=== PATIENT | female | born 1955 | race Caucasian/White ===

== ENCOUNTER → 2016-05-03 | Outpatient (CLI) | payer BC, MEDICAID | LOC: WI 11:20 | PROVIDERS: ATTEND Family Medicine | DX: Z12.31 Encounter for screening mammogram for malignant neoplasm of breast (principal) | CPT/HCPCS: 77067; G0202 ==

== ENCOUNTER 2016-09-10 08:11 | Emergency (ER) | payer BC, MEDICAID ==
--- NOTE | 2016-09-10 08:46 | RADIOLOGY REPORT (SQ) ---
EXAM DESCRIPTION: CHEST SINGLE VIEW COMPLETED DATE/TIME: 09/10/2016 8:27 am REASON FOR STUDY: sob COMPARISON: 01/05/2016 EXAM PARAMETERS: NUMBER OF VIEWS: One view. TECHNIQUE: Single frontal radiographic view of the chest acquired. RADIATION DOSE: NA LIMITATIONS: None. FINDINGS: LUNGS AND PLEURA: No opacities, masses or pneumothorax. No pleural effusion. MEDIASTINUM AND HILAR STRUCTURES: No masses. Contour normal. HEART AND VASCULAR STRUCTURES: Heart normal in size. Normal vasculature. BONES: No acute findings. HARDWARE: None in the chest. OTHER: No other significant finding. IMPRESSION: NO ACUTE RADIOGRAPHIC FINDING IN THE CHEST. TECHNICAL DOCUMENTATION: JOB ID: [id number]
[2016-09-10 08:55] LABS: ABSOLUTE EOSINOPHILS # (AUTO) 0.1 10^3/uL (0.0-0.6); ABSOLUTE LYMPHOCYTES (AUTO) 1.4 10^3/uL (0.5-4.7); ABSOLUTE MONOCYTES (AUTO) 0.6 10^3/uL (0.1-1.4); ABSOLUTE NEUT (AUTO) 2.3 10^3/uL (1.7-8.2); BASOPHILS % (AUTO) 0.3 % (0-2); EOSINOPHILS % (AUTO) 3.4 % (0-6); HEMATOCRIT 44.5 % (36.0-47.0); HEMOGLOBIN 14.9 g/dL (12.0-15.5); HGB HCT DIFFERENCE 0.2; LYMPHOCYTES % (AUTO) 31.4 % (13-45); MEAN CORPUSCULAR HEMOGLOBIN 29.4 pg (27.0-33.4); MEAN CORPUSCULAR HGB CONC 33.4 g/dL (32.0-36.0); MEAN CORPUSCULAR VOLUME 88 fl (80-97); MONOCYTES % (AUTO) 12.8 % (3-13); RED BLOOD COUNT 5.06 10^6/uL (3.72-5.28); RED CELL DISTRIBUTION WIDTH 13.9 % (11.5-14.0); SEGMENTED NEUTROPHILS % (AUTO) 52.1 % (42-78); WHITE BLOOD COUNT 4.4 10^3/uL (4.0-10.5)
[2016-09-10 09:18] LABS: ALANINE AMINOTRANSFERASE 24 U/L (9-52); ALBUMIN 4.1 g/dL (3.5-5.0); ALKALINE PHOSPHATASE 71 U/L (38-126); ANION GAP 13 (5-19); ASPARTATE AMINO TRANSFERASE 29 U/L (14-36); BILIRUBIN,DIRECT 0.3 mg/dL (0.0-0.4); BILIRUBIN,TOTAL 0.5 mg/dL (0.2-1.3); BLOOD UREA NITROGEN 11 mg/dL (7-20); CALCIUM 8.9 mg/dL (8.4-10.2); CARBON DIOXIDE 22 mmol/L (22-30); CHLORIDE 107 mmol/L (98-107); CREATINE KINASE 341 U/L (30-135); GLUCOSE 114 mg/dL (75-110); POTASSIUM 4.1 mmol/L (3.6-5.0); SODIUM 141.6 mmol/L (137-145); TOTAL PROTEIN 7.9 g/dL (6.3-8.2)
[2016-09-10 09:30] LABS: CREATINE KINASE MB 1.41 ng/mL (<4.55)
[2016-09-10 09:33] LABS: TROPONIN I < 0.012 ng/mL
[2016-09-10 09:36] LABS: APPEARANCE,URINE CLEAR; BILIRUBIN,URINE NEGATIVE (NEGATIVE); GLUCOSE, URINE NEGATIVE (NEGATIVE); KETONES,URINE NEGATIVE (NEGATIVE); LEUKOCYTE ESTERASE,URINE NEGATIVE (NEGATIVE); NITRITE,URINE NEGATIVE (NEGATIVE); PROTEIN,URINE NEGATIVE (NEGATIVE); URINE SPECIFIC GRAVITY 1.006; UROBILINOGEN,URINE NEGATIVE mg/dL (<2.0)
[2016-09-10] MEDS ORDERED: PREDNISONE 20 MG TABLET PO ONE (09:37)
[2016-09-10] MEDS ORDERED: IPRATROPIUM/ALBUTEROL 0.5-2.5 MG/3 ML AMPUL NEB ONE ×2 (09:37)
--- NOTE | 2016-09-10 10:20 | EKG REPORT ---
SEVERITY:- NORMAL ECG - SINUS RHYTHM : Confirmed by: Ewa Tiwari MD 10-Sep-2016 10:19:13
--- NOTE | 2016-09-10 10:38 | ER Document Report ---
ED General - General Chief Complaint: Shortness Of Breath Stated Complaint: SHORTNESS OF BREATH Time Seen by Provider: 09/10/16 08:15 Mode of Arrival: Ambulatory Information source: Patient Notes: 61-year-old female history of COPD presents with complaints of a junky cough that she is unable to get up, over one week duration. Patient denies any fevers or chills nausea vomiting or diarrhea pt has used albuterol at home with minimal relief TRAVEL OUTSIDE OF THE [place] IN LAST 30 DAYS: No - HPI Onset: Last week Onset/Duration: Persistent Quality of pain: Achy Severity: Mild Pain Level: 1 Associated symptoms: Nonproductive cough, Shortness of breath Exacerbated by: Walking Relieved by: Denies Similar symptoms previously: Yes Recently seen / treated by doctor: Yes - Related Data Allergies/Adverse Reactions: aspirin [Aspirin] Allergy (Verified 11/16/14 09:35) codeine [Codeine] Allergy (Verified 11/16/14 09:35) Past Medical History - Social History Smoking Status: Current Every Day Smoker Cigarette use (# per day): Yes Chew tobacco use (# tins/day): No Smoking Education Provided: Yes - Patient counselled regarding cessation for 4 minutes Frequency of alcohol use: None Drug Abuse: None Family History: Hypertension - Past Medical History Cardiac Medical History: Reports: Hx Hypercholesterolemia, Hx Hypertension Pulmonary Medical History: Reports: Hx Asthma, Hx Bronchitis, Hx COPD Psychiatric Medical History: Reports: Hx Bipolar Disorder, Hx Depression, Hx Schizophrenia Past Surgical History: Reports: Hx Gynecologic Surgery - uterine scraping, Hx Tubal Ligation - Immunizations Immunizations up to date: Yes Hx Diphtheria, Pertussis, Tetanus Vaccination: Yes - UTD Review of Systems - Review of Systems Notes: REVIEW OF SYSTEMS: CONSTITUTIONAL : Denies fever, chills, or sweats. Denies recent illness. EENT: Denies eye, ear, throat, or mouth pain or symptoms. Denies nasal or sinus congestion or discharge. Denies throat, tongue, or mouth swelling or difficulty swallowing. CARDIOVASCULAR: Denies chest pain. Denies palpitations or racing or irregular heart beat. Denies ankle edema. RESPIRATORY: Denies cough, cold, or chest congestion. Denies shortness of breath, difficulty breathing, or wheezing. GASTROINTESTINAL: Denies abdominal pain or distention. Denies nausea, vomiting , or diarrhea. Denies blood in vomitus, stools, or per rectum. Denies black, tarry stools. Denies constipation. GENITOURINARY: Denies difficulty urinating, painful urination, burning, frequency, blood in urine, or discharge. FEMALE GENITOURINARY: Denies vaginal bleeding, heavy or abnormal periods, irregular periods. Denies vaginal discharge or odor. MUSCULOSKELETAL: Denies back or neck pain or stiffness. Denies joint pain or swelling. SKIN: Denies rash, lesions or sores. HEMATOLOGIC : Denies easy bruising or bleeding. LYMPHATIC: Denies swollen, enlarged glands. NEUROLOGICAL: Denies confusion or altered mental status. Denies passing out or loss of consciousness. Denies dizziness or lightheadedness. Denies headache. Denies weakness or paralysis or loss of use of either side. Denies problems with gait or speech. Denies sensory loss, numbness, or tingling. Denies seizures. PSYCHIATRIC: Denies anxiety or stress. Denies depression, suicidal ideation, or homicidal ideation. ALL OTHER SYSTEMS REVIEWED AND NEGATIVE. PHYSICAL EXAMINATION: GENERAL: Well-appearing, well-nourished and in no acute distress. HEAD: Atraumatic, normocephalic. EYES: Pupils equal round and reactive to light, extraocular movements intact, conjunctiva are normal. ENT: Nares patent, oropharynx clear without exudates. Moist mucous membranes. NECK: Normal range of motion, supple without lymphadenopathy LUNGS: Coarse rhonchi at the bases HEART: Regular rate and rhythm without murmurs ABDOMEN: Soft, nontender, nondistended abdomen. No guarding, no rebound. No masses appreciated. Female : deferred Musculoskeletal: Normal range of motion, no pitting or edema. No cyanosis. NEUROLOGICAL: Cranial nerves grossly intact. Normal speech, normal gait. Normal sensory, motor exams PSYCH: Normal mood, normal affect. SKIN: Warm, Dry, normal turgor, no rashes or lesions noted. Dictation was performed using [id number] voice recognition software Physical Exam - Vital signs Vitals: Pulse Ox 97 09/10/16 08:19 Course - Re-evaluation Re-evalutation: 09/10/16 10:37 Patient given multiple DuoNeb's will be reevaluated 09/10/16 11:49 X-ray noted no obvious abnormality however given patient's presentation I do believe she has pneumonia. She was ambulated and satting 97% rr 20 hr 77, i will dc home as copd exacerbation After performing a Medical Screening Examination, I estimate there is LOW risk for ACUTE CORONARY SYNDROME, RESPIRATORY FAILURE, SEPSIS OR MENINGITIS, thus I consider the discharge disposition reasonable. I have reevaluated this patient multiple times and no significant life threatening changes are noted. The patient and I have discussed the diagnosis and risks, and we agree with discharging home with close follow-up. We also discussed returning to the Emergency Department immediately if new or worsening symptoms occur. We have discussed the symptoms which are most concerning (e.g., changing or worsening pain, trouble swallowing or breathing, neck stiffness, fever) that necessitate immediate return. - Vital Signs Vital signs: Temp Pulse Resp BP Pulse Ox 23 H 108/63 96 09/10/16 11:01 09/10/16 11:01 09/10/16 11:01 - Laboratory Result Diagrams: 09/10/16 08:40 09/10/16 08:40 Laboratory results interpreted by me: 09/10/16 09/10/16 08:40 09:20 Glucose 114 H Creatine Kinase 341 H Urine Blood SMALL H - Diagnostic Test Radiology reviewed: Image reviewed, Reports reviewed - EKG Interpretation by Or EKG shows normal: Sinus rhythm, [place], Intervals, QRS Complexes Discharge - Discharge Clinical Impression: Acute exacerbation of chronic obstructive pulmonary disease (COPD) COPD (chronic obstructive pulmonary disease) Qualifiers: COPD type: chronic bronchitis Chronic bronchitis type: simple Qualified Code(s) : J41.0 - Simple chronic bronchitis Pneumonia Qualifiers: Pneumonia type: due to unspecified organism Laterality: right Lung location: upper lobe of lung Qualified Code(s): J18.1 - Lobar pneumonia, unspecified organism Condition: Stable Disposition: HOME, SELF-CARE Instructions: Pneumonia ([facility]) Prescriptions: Levofloxacin [Levaquin 750 mg Tablet] 750 mg PO DAILY #5 tablet Prednisone [Deltasone 20 mg Tablet] 3 tab PO DAILY 5 Days Referrals: FELIPA COFFEY DO [Primary Care Provider] - Follow up tomorrow
[2016-09-10 12:37] VITALS: BP 110/58
== END 2016-09-10 12:43 | disposition home or self-care (01) ==
LOC: ER 08:11
DX: J44.1 Chronic obstructive pulmonary disease with (acute) exacerbation (principal); J41.0 Simple chronic bronchitis; J18.1 Lobar pneumonia, unspecified organism; R06.02 Shortness of breath; R05 Cough; F17.210 Nicotine dependence, cigarettes, uncomplicated
CPT/HCPCS: 93005; 99406; 94640 ×2; 99285; 36415; 82553; 82550; 83605; 85025; 80053; 81001; 84484; 83880; 71010; 93010; J7512; J7620

== ENCOUNTER 2016-09-12 09:39 | Inpatient (IN) | payer MEDICAID ==
[2016-09-12] MEDS ORDERED: IPRATROPIUM/ALBUTEROL 0.5-2.5 MG/3 ML AMPUL NEB ONE (09:44)
[2016-09-12] MEDS ORDERED: ALBUTEROL SULFATE 0.083% NEB 2.5 MG/3 ML AMPUL NEB SCH (10:00)
[2016-09-12] MEDS ORDERED: ASPIRIN 81 MG TABLET, CHEWABLE PO ONE (10:34)
--- NOTE | 2016-09-12 10:34 | RADIOLOGY REPORT (SQ) ---
EXAM DESCRIPTION: CHEST SINGLE VIEW COMPLETED DATE/TIME: 09/12/2016 10:21 am REASON FOR STUDY: DIFFICULTY BREATHING COMPARISON: 01/05/2016 EXAM PARAMETERS: NUMBER OF VIEWS: One view. TECHNIQUE: Single frontal radiographic view of the chest acquired. RADIATION DOSE: NA LIMITATIONS: None. FINDINGS: LUNGS AND PLEURA: No opacities, masses or pneumothorax. No pleural effusion. MEDIASTINUM AND HILAR STRUCTURES: No masses. Contour normal. HEART AND VASCULAR STRUCTURES: Heart normal in size. Normal vasculature. BONES: No acute findings. HARDWARE: None in the chest. OTHER: No other significant finding. IMPRESSION: NO ACUTE RADIOGRAPHIC FINDING IN THE CHEST. TECHNICAL DOCUMENTATION: JOB ID: [id number]
--- NOTE | 2016-09-12 10:51 | ER Document Report ---
ED Medical Screen (RME) - General Chief Complaint: Breathing Difficulty Stated Complaint: SHORTNESS OF BREATH Time Seen by Provider: 09/12/16 10:33 Notes: Patient is a 61-year-old female who presents emergency department after 7 days of chest pain with associated shortness of breath. Prior to a week ago she admits to 10 days of URI symtoms (rhinorrhea, dry cough) after being caught out in the rain. Then last week, her symptoms changed to include chest pain with associated SOB when lying flat. This SOB and chest pain is different then her normal COPD exacertoin she states, does not improve with nebulizers. She states her pain has increased in severity over the past week. Her pain is located substernal with radiation along the left side of her chest and into her back. She states her pain improves significantly when she sits forward, at its worst when lying flat. She was evaluated her on 09/10/2016 and was diagnosed with COPD exacerbation and possible PNA. D/c home on prednisone and levoquin. She states her chest pain and assoc. SOB has not improved over the past two days. Had an appointment scheduled with Dr. River today for follow up but her chest pain was so severe she came to the ED. A&Ox4, NAD Chest nontender to palpation, no audible friction rub, murmur, gallop, Nl s1s2 Audible wheeze noted in the RUL otherwise CTAB I have greeted and performed a rapid initial assessment of this patient. A comprehensive ED assessment and evaluation of the patient, analysis of test results and completion of the medical decision making process will be conducted by additional ED providers. TRAVEL OUTSIDE OF THE [place] IN LAST 30 DAYS: No - Related Data Allergies/Adverse Reactions: aspirin [Aspirin] Allergy (Verified 09/12/16 09:42) codeine [Codeine] Allergy (Verified 09/12/16 09:42) Past Medical History - Past Medical History Cardiac Medical History: Reports: Hx Hypercholesterolemia, Hx Hypertension Pulmonary Medical History: Reports: Hx Asthma, Hx Bronchitis, Hx COPD Renal/ Medical History: Denies: Hx Peritoneal Dialysis Psychiatric Medical History: Reports: Hx Bipolar Disorder, Hx Depression, Hx Schizophrenia Past Surgical History: Reports: Hx Gynecologic Surgery - uterine scraping, Hx Tubal Ligation - Immunizations Immunizations up to date: Yes Hx Diphtheria, Pertussis, Tetanus Vaccination: Yes - UTD Physical Exam - Vital signs Vitals: Temp Pulse Resp BP Pulse Ox 98.3 F 78 26 H 143/73 H 93 09/12/16 09:42 09/12/16 09:42 09/12/16 09:42 09/12/16 09:42 09/12/16 09:42 Course - Vital Signs Vital signs: Temp Pulse Resp BP Pulse Ox 98.3 F 78 26 H 143/73 H 93 09/12/16 09:42 09/12/16 09:42 09/12/16 09:42 09/12/16 09:42 09/12/16 09:42
--- NOTE | 2016-09-12 11:54 | ER Document Report ---
ED Respiratory Problem - General Chief Complaint: Breathing Difficulty Stated Complaint: SHORTNESS OF BREATH Time Seen by Provider: 09/12/16 10:33 Information source: Patient Notes: Patient is a 61-year-old female with past medical history of asthma, COPD, no home oxygen, who presents today with the onset 9 days ago of nasal congestion, rhinorrhea, and a nonproductive cough. The cough worsened and she was seen here 2 days ago and diagnosed with a pneumonia and placed on steroids and antibiotics. Patient states she started to develop some worsening shortness of breath with nausea without vomiting. She states low-grade fevers at night. She states some left anterior chest pain "only when I cough". She denies any calf pain, leg swelling, recent trips or travel in the last month. TRAVEL OUTSIDE OF THE [place] IN LAST 30 DAYS: No - HPI Patient complains to provider of: Short of breath, Other - See above Onset: Other - See above Duration: Continuous Quality of pain: Dull Severity: Moderate Pain Level: 0 Context: Other - See above Short of Breath: Mild Chest pain/discomfort: Center Cough: Nonproductive Sputum amount: None Associated symptoms: Other - See above Similar symptoms previously: Yes Recently seen / treated by doctor: Yes - Related Data Allergies/Adverse Reactions: codeine [Codeine] Allergy (Verified 09/12/16 09:42) aspirin [Aspirin] Adverse Reaction (Mild, Verified 09/12/16 10:40) Nausea Past Medical History - General Information source: Patient - Social History Smoking Status: Former Smoker Cigarette use (# per day): No Chew tobacco use (# tins/day): No Smoking Education Provided: No Frequency of alcohol use: None Family History: Reviewed & Not Pertinent, Hypertension Patient has suicidal ideation: No Patient has homicidal ideation: No - Past Medical History Cardiac Medical History: Reports: Hx Hypercholesterolemia, Hx Hypertension Pulmonary Medical History: Reports: Hx Asthma, Hx Bronchitis, Hx COPD Renal/ Medical History: Denies: Hx Peritoneal Dialysis Psychiatric Medical History: Reports: Hx Bipolar Disorder, Hx Depression, Hx Schizophrenia Past Surgical History: Reports: Hx Gynecologic Surgery - uterine scraping, Hx Tubal Ligation - Immunizations Immunizations up to date: Yes Hx Diphtheria, Pertussis, Tetanus Vaccination: Yes - UTD Review of Systems - Review of Systems Constitutional: denies: Fever EENT: Nose congestion, Nose discharge. denies: Eye discharge Cardiovascular: denies: Palpitations, Dyspnea, Edema Respiratory: denies: Short of breath Gastrointestinal: denies: Vomiting Genitourinary: denies: Dysuria Musculoskeletal: denies: Leg swelling Skin: Other - no hives. denies: Rash Neurological/Psychological: Other - no slurred speech -: Yes All other systems reviewed and negative Physical Exam - Vital signs Vitals: Temp Pulse Resp BP Pulse Ox 98.3 F 78 26 H 143/73 H 93 09/12/16 09:42 09/12/16 09:42 09/12/16 09:42 09/12/16 09:42 09/12/16 09:42 Notes: Reviewed vital signs and nursing note as charted by RN. CONSTITUTIONAL: Alert and oriented and responds appropriately to questions. Well -appearing; well-nourished HEAD: Normocephalic; atraumatic EYES: PERRL; Conjunctivae clear, sclerae non-icteric ENT: Normal nose; minimal bilateral nasal rhinorrhea; moist mucous membranes; pharynx without lesions noted NECK: Supple without meningismus; non-tender CARD: Regular rate and rhythm; no murmurs, no clicks, no rubs, no gallops; symmetric distal pulses RESP: Normal chest excursion without splinting or tachypnea; has obvious bilateral and expiratory wheezing with some scattered rhonchi ABD/GI: Normal bowel sounds; non-distended; soft, non-tender BACK: The back appears normal and is non-tender to palpation, there is no CVA tenderness EXT: Normal ROM in all joints; non-tender to palpation; no cyanosis, no effusions, no edema SKIN: Normal color for age and race; warm; dry; good turgor; capillary refill < 2 seconds; no acute lesions noted NEURO: Moves all extremities equally; Motor and sensory function intact PSYCH: The patient's mood and manner are appropriate. Grooming and personal hygiene are appropriate. Course - Re-evaluation Re-evalutation: 09/12/16 11:52 Given the above history and physical examination we will place patient on the monitor, provide oxygen, provide nebulizers, obtain EKG, x-ray of the chest, and cardiac panel. Given the nasal congestion, cough, rhinorrhea, chest pain only with coughing, I believe the risk of pulmonary embolism and dissection to be unlikely. Patient is satting 94% on nasal cannula in no acute distress. Blood gas has been ordered. I anticipate admission. 09/12/16 11:55 I reviewed the patient's recent past x-ray and I detect no pneumonia. I believe the patient was treated for an acute COPD exacerbation. Current x-ray of the chest today shows normal heart, normal mediastinum, no fractures, normal lung zapata, no pneumothorax. 09/12/16 11:56 EKG shows a heart rate of 67, normal sinus rhythm, normal axis, no obvious ST elevation or depression. 09/12/16 13:45 Breathing has improved. Normal troponin. - Vital Signs Vital signs: Temp Pulse Resp BP Pulse Ox 98.3 F 78 26 H 143/73 H 93 09/12/16 09:42 09/12/16 09:42 09/12/16 09:42 09/12/16 09:42 09/12/16 11:34 - Laboratory Result Diagrams: 09/12/16 11:57 09/12/16 11:57 Laboratory results interpreted by me: 09/12/16 09/12/16 11:57 11:57 Seg Neutrophils % 84.4 H Monocytes % 2.0 L Glucose 139 H Creatine Kinase 638 H Discharge - Discharge Clinical Impression: Chest wall pain, COPD exacerbation Referrals: FELIPA COFFEY DO [Primary Care Provider] - Follow up as needed
[2016-09-12] MEDS ORDERED: IPRATROPIUM/ALBUTEROL 0.5-2.5 MG/3 ML AMPUL NEB SCH (12:00)
[2016-09-12 12:40] LABS: ABSOLUTE LYMPHOCYTES (AUTO) 1.2 10^3/uL (0.5-4.7); ABSOLUTE MONOCYTES (AUTO) 0.2 10^3/uL (0.1-1.4); ABSOLUTE NEUT (AUTO) 7.3 10^3/uL (1.7-8.2); BASOPHILS % (AUTO) 0.2 % (0-2); HEMATOCRIT 42.6 % (36.0-47.0); HEMOGLOBIN 14.2 g/dL (12.0-15.5); LYMPHOCYTES % (AUTO) 13.4 % (13-45); MEAN CORPUSCULAR HEMOGLOBIN 29.5 pg (27.0-33.4); MEAN CORPUSCULAR HGB CONC 33.3 g/dL (32.0-36.0); MEAN CORPUSCULAR VOLUME 89 fl (80-97); RED BLOOD COUNT 4.82 10^6/uL (3.72-5.28); RED CELL DISTRIBUTION WIDTH 13.8 % (11.5-14.0); SEGMENTED NEUTROPHILS % (AUTO) 84.4 % (42-78); WHITE BLOOD COUNT 8.7 10^3/uL (4.0-10.5)
[2016-09-12 13:06] LABS: ALANINE AMINOTRANSFERASE 27 U/L (9-52); ALBUMIN 4.5 g/dL (3.5-5.0); ALKALINE PHOSPHATASE 69 U/L (38-126); ANION GAP 15 (5-19); ASPARTATE AMINO TRANSFERASE 34 U/L (14-36); BILIRUBIN,DIRECT 0.4 mg/dL (0.0-0.4); BILIRUBIN,TOTAL 0.5 mg/dL (0.2-1.3); BLOOD UREA NITROGEN 15 mg/dL (7-20); CALCIUM 9.6 mg/dL (8.4-10.2); CARBON DIOXIDE 22 mmol/L (22-30); CHLORIDE 105 mmol/L (98-107); CREATINE KINASE 638 U/L (30-135); CREATININE RESULT 0.79 mg/dL (0.52-1.25); GLUCOSE 139 mg/dL (75-110); POTASSIUM 4.4 mmol/L (3.6-5.0); TOTAL PROTEIN 8.1 g/dL (6.3-8.2)
[2016-09-12 13:38] LABS: CREATINE KINASE MB 2.69 ng/mL (<4.55)
[2016-09-12 13:40] LABS: TROPONIN I < 0.012 ng/mL
[2016-09-12] MEDS ORDERED: ACETAMINOPHEN 325 MG TABLET PO PRN (14:05)
[2016-09-12] MEDS ORDERED: IPRATROPIUM/ALBUTEROL 0.5-2.5 MG/3 ML AMPUL NEB PRN (14:05)
[2016-09-12 14:10] LABS: ARTERIAL BLOOD BASE EXCESS -1.2 mmol/L; ARTERIAL BLOOD O2 SATURATION 92.1 % (94-98)
--- NOTE | 2016-09-12 15:12 | PDOC H&P ---
History of Present Illness Admission Date/PCP: 09/12/16 14:20 FELIPA COFFEY DO Patient complains of: Cough, increasing shortness of breath and wheezing History of Present Illness: Josselyn Isidro is a 61-year-old female with past medical history of asthma, COPD, no home oxygen, and tobacco abuse, who presents today with the onset 9 days ago of nasal congestion, rhinorrhea, and a nonproductive cough. The cough worsened and she was seen here 2 days ago and diagnosed with a pneumonia and placed on steroids and antibiotics. Patient states she started to develop some worsening shortness of breath with nausea without vomiting. She also complains of increased wheezing. She states low-grade fevers at night. She states some left anterior chest pain "only when I cough". She denies any calf pain, leg swelling, recent trips or travel in the last month. She denies any trouble with orthopnea or PND. She denies any other complaints. Past Medical History Cardiac Medical History: Reports: Hyperlipidema, Hypertension Pulmonary Medical History: Reports: Asthma, Bronchitis, Chronic Obstructive Pulmonary Disease (COPD) EENT Medical History: Reports: None Neurological Medical History: Reports: None Endocrine Medical History: Reports: None Renal/ Medical History: Reports: None Malignancy Medical History: Reports: None GI Medical History: Reports: None Musculoskeltal Medical History: Reports: None Skin Medical History: Reports: None Psychiatric Medical History: Reports: Bipolar Disorder, Depression Traumatic Medical History: Reports: None Hematology: Reports: None Infectious Medical History: Reports: None Past Surgical History Past Surgical History: Reports: Tubal Ligation Social History Information Source: Patient Lives with: Alone Smoking Status: Smoker,Current Status Unk - Chandu Murray current Cigarettes Packs Per Day: 0.5 Number of Years Smokin Frequency of Alcohol Use: Occasional Hx Recreational Drug Use: No Drugs: None Hx Prescription Drug Abuse: No - Advance Directive Resuscitation Status: Full Code Surrogate healthcare decision maker:: daughter, Mary Kay Zamora Family History Family History: COPD, Hypertension Parental Family History Reviewed: Yes Children Family History Reviewed: Yes Sibling(s) Family History Reviewed.: Yes Medication/Allergy Home Medications: Albuterol Sulfate [Proair HFA] 2 puff IH Q4HP PRN 09/12/16 Albuterol Sulfate [Ventolin 0.083% Neb 2.5 mg/3 ml Ampul] 1 vial NEB Q4HP PRN Aripiprazole [Abilify] 20 mg PO QHS 09/12/16 Esomeprazole Mag Trihydrate [Nexium] 40 mg PO DAILY 09/12/16 Fluticasone Propionate [Flonase Nasal Geary 50 Mcg/Geary 16 gm] 1 spray NASL DAILY 09/12/16 Fluticasone/Salmeterol [Advair 250-50 Diskus 28 dose] 1 inh IH Q12 09/12/16 Gabapentin [Neurontin 300 mg Capsule] 300 mg PO QID 09/12/16 Levofloxacin [Levaquin 750 mg Tablet] 750 mg PO DAILY 09/12/16 Metformin HCl [Glucophage] 500 mg PO QAM 09/12/16 Prednisone [Deltasone 20 mg Tablet] 60 mg PO DAILY 09/12/16 Sertraline HCl [Zoloft] 150 mg PO QAM 09/12/16 Trazodone HCl [Desyrel] 200 mg PO QHS 09/12/16 Allergies/Adverse Reactions: codeine [Codeine] Allergy (Verified 09/12/16 09:42) aspirin [Aspirin] Adverse Reaction (Mild, Verified 09/12/16 10:40) Nausea Review of Systems Constitutional: PRESENT: chills, fatigue, weakness Eyes: ABSENT: visual disturbances Ears: ABSENT: hearing changes Cardiovascular: ABSENT: chest pain, dyspnea on exertion, edema, orthropnea, palpitations Respiratory: PRESENT: cough, dyspnea, sputum Gastrointestinal: PRESENT: nausea Genitourinary: ABSENT: dysuria, hematuria Musculoskeletal: ABSENT: joint swelling Integumentary: ABSENT: rash, wounds Neurological: ABSENT: abnormal gait, abnormal speech, confusion, dizziness, focal weakness, syncope Psychiatric: ABSENT: anxiety, depression, homidical ideation, suicidal ideation Endocrine: ABSENT: cold intolerance, heat intolerance, polydipsia, polyuria Hematologic/Lymphatic: ABSENT: easy bleeding, easy bruising Physical Exam Vital Signs: Temp Pulse Resp BP Pulse Ox 98.3 F 78 26 H 143/73 H 93 09/12/16 09:42 09/12/16 09:42 09/12/16 09:42 09/12/16 09:42 09/12/16 11:34 General appearance: PRESENT: no acute distress - Patient with frequent well he really truly receptive to what she was saying, well-developed, well-nourished Head exam: PRESENT: atraumatic, normocephalic Eye exam: PRESENT: conjunctiva pink, EOMI, PERRLA. ABSENT: scleral icterus Ear exam: PRESENT: normal external ear exam Mouth exam: PRESENT: moist, tongue midline Neck exam: ABSENT: carotid bruit, JVD, lymphadenopathy, thyromegaly Respiratory exam: PRESENT: rhonchi, symmetrical, unlabored, wheezes Cardiovascular exam: PRESENT: RRR. ABSENT: diastolic murmur, rubs, systolic murmur Pulses: PRESENT: normal dorsalis pedis pul Vascular exam: PRESENT: normal capillary refill GI/Abdominal exam: PRESENT: normal bowel sounds, soft. ABSENT: distended, guarding, mass, organolmegaly, rebound, tenderness Rectal exam: PRESENT: deferred Extremities exam: PRESENT: full ROM. ABSENT: calf tenderness - Relief. [employer] your little the board, clubbing, pedal edema Neurological exam: PRESENT: alert - she primary probably, awake, oriented to person, oriented to place, oriented to time, oriented to situation, CN II-XII grossly intact. ABSENT: motor sensory deficit Skin exam: PRESENT: dry, intact, warm. ABSENT: cyanosis, rash Results Impressions: Chest X-Ray 09/12/16 09:45 IMPRESSION: NO ACUTE RADIOGRAPHIC FINDING IN THE CHEST. Assessment & Plan - Diagnosis (1) Acute exacerbation of chronic obstructive pulmonary disease (COPD) Is this a current diagnosis for this admission?: YesPlan: Patient will be placed on IV ceftriaxone and azithromycin. IV Solu-Medrol and nebulizer treatments. We will start flutter valve and incentive telemetry as well. She was placed on oxygen at 2 L for room air oxygen saturation ration of 87%. (2) COPD (chronic obstructive pulmonary disease) Qualifiers: COPD type: chronic bronchitis Chronic bronchitis type: simple Qualified Code(s): J41.0 - Simple chronic bronchitis Plan: As above (3) Bipolar disorder Qualifiers: Most recent bipolar episode type: mixed Is this a current diagnosis for this admission?: Yes (4) Gastroesophageal reflux disease Is this a current diagnosis for this admission?: Yes (5) Hypercholesterolemia Is this a current diagnosis for this admission?: YesPlan: Continue statin therapy (6) Hypertension Qualifiers: Hypertension type: essential hypertension Qualified Code(s): I10 - Essential (primary) hypertension Is this a current diagnosis for this admission?: YesPlan: Continue medication patient is normotensive (7) Tobacco abuse Is this a current diagnosis for this admission?: YesPlan: Patient was counseled - Time Time Spent: 50 to 70 Minutes Critical Time spent with patient: 25-34 minutes Smoking Cessation Education: 3 to 10 minutes Medications reviewed and adjusted accordingly: Yes
[2016-09-12] MEDS ORDERED: ENOXAPARIN SODIUM INJ 40 MG/0.4 ML DISP.SYRIN SUBCUT ONE (15:30)
[2016-09-12] MEDS: IPRATROPIUM/ALBUTEROL 0.5-2.5 MG/3 ML AMPUL NEB SCH ×2 (15:47→21:19)
[2016-09-12 15:58] LABS: APPEARANCE,URINE CLEAR; BILIRUBIN,URINE NEGATIVE (NEGATIVE); GLUCOSE, URINE NEGATIVE (NEGATIVE); KETONES,URINE NEGATIVE (NEGATIVE); LEUKOCYTE ESTERASE,URINE NEGATIVE (NEGATIVE); NITRITE,URINE NEGATIVE (NEGATIVE); PROTEIN,URINE NEGATIVE (NEGATIVE); URINE SPECIFIC GRAVITY 1.006; UROBILINOGEN,URINE NEGATIVE mg/dL (<2.0)
--- NOTE | 2016-09-12 17:02 | EKG REPORT ---
SEVERITY:- NORMAL ECG - SINUS RHYTHM : Confirmed by: Ewa Tiwari MD 12-Sep-2016 17:01:47
[2016-09-12] MEDS: GABAPENTIN 300 MG CAPSULE PO SCH ×2 (18:27→23:29)
[2016-09-12] MEDS ORDERED: (PENDING PHARMACY ID) (Trazodone Hcl [Desyrel] 200 MG) PO SCH (22:00)
[2016-09-12] MEDS: FLUTICASONE/SALMETEROL DISKUS 250-50 MCG/DOSE IH SCH (22:00)
[2016-09-12] MEDS: TRAZODONE HCL 50 MG TABLET PO SCH (22:00)
[2016-09-12] MEDS ORDERED: (PENDING PHARMACY ID) (Aripiprazole [Abilify] 20 MG) PO SCH (22:00)
[2016-09-12] MEDS: FAMOTIDINE 20 MG TABLET PO SCH (22:01)
[2016-09-12] MEDS: GUAIFENESIN 600 MG TABLET.SA PO SCH (22:01)
[2016-09-12] MEDS: ARIPIPRAZOLE 5 MG TABLET PO SCH (22:01)
[2016-09-12] MEDS: METHYLPREDNISOLONE INJ 125 MG/2 ML SDV IV SCH (22:01)
[2016-09-13 05:17] LABS: ABSOLUTE LYMPHOCYTES (AUTO) 1.3 10^3/uL (0.5-4.7); ABSOLUTE MONOCYTES (AUTO) 0.2 10^3/uL (0.1-1.4); ABSOLUTE NEUT (AUTO) 6.9 10^3/uL (1.7-8.2); BASOPHILS % (AUTO) 0.4 % (0-2); HEMATOCRIT 40.6 % (36.0-47.0); HEMOGLOBIN 13.7 g/dL (12.0-15.5); HGB HCT DIFFERENCE 0.5; LYMPHOCYTES % (AUTO) 15.5 % (13-45); MEAN CORPUSCULAR HEMOGLOBIN 30.2 pg (27.0-33.4); MEAN CORPUSCULAR HGB CONC 33.7 g/dL (32.0-36.0); MEAN CORPUSCULAR VOLUME 90 fl (80-97); MONOCYTES % (AUTO) 2.2 % (3-13); RED BLOOD COUNT 4.54 10^6/uL (3.72-5.28); SEGMENTED NEUTROPHILS % (AUTO) 81.9 % (42-78); WHITE BLOOD COUNT 8.4 10^3/uL (4.0-10.5)
[2016-09-13] MEDS: METHYLPREDNISOLONE INJ 125 MG/2 ML SDV IV SCH ×3 (05:24→21:49)
[2016-09-13] MEDS: GABAPENTIN 300 MG CAPSULE PO SCH ×4 (05:24→23:38)
[2016-09-13 05:37] LABS: ANION GAP 13 (5-19); BLOOD UREA NITROGEN 19 mg/dL (7-20); CALCIUM 9.7 mg/dL (8.4-10.2); CARBON DIOXIDE 23 mmol/L (22-30); CHLORIDE 107 mmol/L (98-107); CREATININE RESULT 0.89 mg/dL (0.52-1.25); GLUCOSE 140 mg/dL (75-110); POTASSIUM 4.9 mmol/L (3.6-5.0); SODIUM 142.6 mmol/L (137-145)
[2016-09-13] MEDS: IPRATROPIUM/ALBUTEROL 0.5-2.5 MG/3 ML AMPUL NEB SCH ×4 (08:27→20:16)
[2016-09-13] MEDS: GUAIFENESIN 600 MG TABLET.SA PO SCH ×2 (09:30→21:49)
[2016-09-13] MEDS: METFORMIN HCL 500 MG TABLET PO SCH (09:30)
[2016-09-13] MEDS: FAMOTIDINE 20 MG TABLET PO SCH ×2 (09:31→21:49)
[2016-09-13] MEDS: CEFTRIAXONE 1 GM/D5W RTU 50 ML IV SCH (09:31)
[2016-09-13] MEDS: SERTRALINE HCL 50 MG TABLET PO SCH (09:31)
[2016-09-13] MEDS: TIOTROPIUM BROMIDE DPI 5 CAP/KIT (18 MCG/CAP) IH SCH (09:32)
[2016-09-13] MEDS: FLUTICASONE NASAL SPRAY 50 MCG/SPRY 120 SPRAY/16 GM NASL SCH (09:32)
[2016-09-13] MEDS: FLUTICASONE/SALMETEROL DISKUS 250-50 MCG/DOSE IH SCH ×2 (09:32→21:49)
[2016-09-13] MEDS: AZITHROMYCIN 500 MG in DEXTROSE 5%-WATER 250 ML IV SCH (09:32)
[2016-09-13] MEDS: ENOXAPARIN SODIUM INJ 40 MG/0.4 ML DISP.SYRIN SUBCUT SCH (09:36)
[2016-09-13] MEDS: LANSOPRAZOLE 30 MG TAB.RAP.DR PO SCH (09:37)
[2016-09-13] MEDS ORDERED: (PENDING PHARMACY ID) (Esomeprazole Mag Trihydrate [Nexium] 40 MG) PO SCH (10:00)
[2016-09-13] MEDS ORDERED: LEVOFLOXACIN 750 MG TABLET PO SCH (10:00)
[2016-09-13] MEDS ORDERED: KETOROLAC TROMETHAMINE INJ/PF 30 MG/1 ML SDV IV PRN (11:18)
[2016-09-13] MEDS ORDERED: ONDANSETRON HCL INJ/PF 4 MG/2 ML SDV IV PRN ×2 (11:19→13:48)
[2016-09-13] MEDS ORDERED: KETOROLAC TROMETHAMINE INJ/PF 30 MG/1 ML SDV IV ONE (11:45)
--- NOTE | 2016-09-13 14:12 | PDOC PROGRESS REPORT ---
Subjective Progress Note for:: 09/13/16 Subjective:: Patient seen on morning rounds. She is resting in bed. She is complaining of a headache and feeling nauseous. She states she has not told her if she needs anything. She states her breathing is somewhat improved from admission. She is still coughing however it is nonproductive. She states the wheezing has improved. She denies any abdominal pain or diarrhea. She denies any significant arthralgias or myalgias. Rest of the review of systems negative. Physical Exam Vital Signs: Temp Pulse Resp BP Pulse Ox 97.7 F 97 22 H 123/61 92 09/13/16 11:21 09/13/16 11:21 09/13/16 11:21 09/13/16 11:21 09/13/16 12:05 Pulse Oximeter Continuous Start: 09/12/16 14: 05 Freq: RTQ4 Status: Active Document 09/13/16 12:05 [facility] (Rec: 09/13/16 13:25 [email or web address] [email or web address]) Pulse Oximetry Assessment Oxygen Saturation (92-100) 92 Oxygen Flow Rate (L/min) 2 Oxygen Delivery Method Nasal Cannula Fraction of Inspired Oxygen (FIO2) 28 Equipment Usage Equipment in Use Continuous SpO2 Machine # 2 Intake & Output 09/12/16 09/13/16 09/14/16 06:59 06:59 06:59 Intake Total 516 Output Total 1200 Balance -684 Weight 63.3 kg General appearance: PRESENT: no acute distress, obese, well-developed, well- nourished Head exam: PRESENT: atraumatic, normocephalic Eye exam: PRESENT: conjunctiva pink, EOMI, PERRLA. ABSENT: scleral icterus Ear exam: PRESENT: normal external ear exam Mouth exam: PRESENT: moist, tongue midline Neck exam: ABSENT: carotid bruit, JVD, lymphadenopathy, thyromegaly Respiratory exam: PRESENT: clear to auscultation fili. ABSENT: rales, rhonchi, wheezes Cardiovascular exam: PRESENT: RRR. ABSENT: diastolic murmur, rubs, systolic murmur Pulses: PRESENT: normal dorsalis pedis pul Vascular exam: PRESENT: normal capillary refill GI/Abdominal exam: PRESENT: normal bowel sounds, soft. ABSENT: distended, guarding, mass, organolmegaly, rebound, tenderness Rectal exam: PRESENT: deferred - Brain abscess Extremities exam: PRESENT: full ROM. ABSENT: calf tenderness, clubbing, pedal edema Neurological exam: PRESENT: alert - Multiple, awake, oriented to person, oriented to place, oriented to time, oriented to situation, CN II-XII grossly intact. ABSENT: motor sensory deficit Psychiatric exam: PRESENT: appropriate affect, normal mood. ABSENT: homicidal ideation, suicidal ideation Results Laboratory Results: 09/13/16 04:26 09/13/16 04:26 09/12/16 09/13/16 09/13/16 15:00 04:26 04:26 WBC 8.4 RBC 4.54 Hgb 13.7 Hct 40.6 MCV 90 MCH 30.2 MCHC 33.7 RDW 14.0 Plt Count 194 Seg Neutrophils % 81.9 H Lymphocytes % 15.5 Monocytes % 2.2 L Eosinophils % 0.0 Basophils % 0.4 Absolute Neutrophils 6.9 Absolute Lymphocytes 1.3 Absolute Monocytes 0.2 Absolute Eosinophils 0.0 Absolute Basophils 0.0 Sodium 142.6 Potassium 4.9 Chloride 107 Carbon Dioxide 23 Anion Gap 13 BUN 19 Creatinine 0.89 Est GFR ( Amer) > 60 Est GFR (Non-Af Amer) > 60 Glucose 140 H Calcium 9.7 Urine Color STRAW Urine Appearance CLEAR Urine pH 6.0 Ur Specific [place] 1.006 Urine Protein NEGATIVE Urine Glucose (UA) NEGATIVE Urine Ketones NEGATIVE Urine Blood NEGATIVE Urine Nitrite NEGATIVE Ur Leukocyte Esterase NEGATIVE Urine RBC (Auto) 0 09/12/16 09/13/16 17:53 04:26 Troponin I < 0.012 NT-Pro-B Natriuret Pep 399 Impressions: Chest X-Ray 09/12/16 09:45 IMPRESSION: NO ACUTE RADIOGRAPHIC FINDING IN THE CHEST. Assessment & Plan - Diagnosis (1) Acute exacerbation of chronic obstructive pulmonary disease (COPD) Is this a current diagnosis for this admission?: YesPlan: Patient will be placed on IV ceftriaxone and azithromycin. IV Solu-Medrol and nebulizer treatments. We will start flutter valve and incentive telemetry as well. She was placed on oxygen at 2 L for room air oxygen saturation ration of 87%. (2) COPD (chronic obstructive pulmonary disease) Qualifiers: COPD type: chronic bronchitis Chronic bronchitis type: simple Qualified Code(s): J41.0 - Simple chronic bronchitis Plan: As above (3) Bipolar disorder Qualifiers: Most recent bipolar episode type: mixed Is this a current diagnosis for this admission?: YesPlan: Continue Zoloft (4) Gastroesophageal reflux disease Qualifiers: Esophagitis presence: esophagitis presence not specified Qualified Code(s): K21.9 - Gastro-esophageal reflux disease without esophagitis Is this a current diagnosis for this admission?: YesPlan: Continue PPI therapy (5) Hypercholesterolemia Is this a current diagnosis for this admission?: YesPlan: Continue statin therapy (6) Hypertension Qualifiers: Hypertension type: essential hypertension Qualified Code(s): I10 - Essential (primary) hypertension Is this a current diagnosis for this admission?: YesPlan: Continue medication patient is normotensive (7) Tobacco abuse Is this a current diagnosis for this admission?: YesPlan: Patient was counseled - Time Time Spent with patient: 25-34 minutes Critical Time spent with patient: 15-24 minutes Medications reviewed and adjusted accordingly: Yes Anticipated discharge: Home
[2016-09-13] MEDS: ACETYLCYSTEINE 20% SOLN 800 MG/4 ML VIAL.NEB NEB SCH (20:15)
[2016-09-13] MEDS ORDERED: NICOTINE 14 MG/24 HR PATCH.TD24 TD ONE (20:45)
[2016-09-13] MEDS: TRAZODONE HCL 50 MG TABLET PO SCH (21:49)
[2016-09-13] MEDS: ARIPIPRAZOLE 5 MG TABLET PO SCH (21:49)
[2016-09-14] MEDS: METHYLPREDNISOLONE INJ 125 MG/2 ML SDV IV SCH ×3 (05:56→22:16)
[2016-09-14] MEDS: GABAPENTIN 300 MG CAPSULE PO SCH ×4 (05:56→23:00)
[2016-09-14] MEDS: ACETYLCYSTEINE 20% SOLN 800 MG/4 ML VIAL.NEB NEB SCH ×2 (08:24→19:17)
[2016-09-14] MEDS: IPRATROPIUM/ALBUTEROL 0.5-2.5 MG/3 ML AMPUL NEB SCH ×4 (08:24→19:17)
[2016-09-14] MEDS: SERTRALINE HCL 50 MG TABLET PO SCH (08:38)
[2016-09-14] MEDS: LANSOPRAZOLE 30 MG TAB.RAP.DR PO SCH (08:38)
[2016-09-14] MEDS: METFORMIN HCL 500 MG TABLET PO SCH (08:39)
[2016-09-14] MEDS: FLUTICASONE NASAL SPRAY 50 MCG/SPRY 120 SPRAY/16 GM NASL SCH (10:14)
[2016-09-14] MEDS: FLUTICASONE/SALMETEROL DISKUS 250-50 MCG/DOSE IH SCH ×2 (10:15→22:16)
[2016-09-14] MEDS: TIOTROPIUM BROMIDE DPI 5 CAP/KIT (18 MCG/CAP) IH SCH (10:15)
[2016-09-14] MEDS: CEFTRIAXONE 1 GM/D5W RTU 50 ML IV SCH (10:16)
[2016-09-14] MEDS: AZITHROMYCIN 500 MG in DEXTROSE 5%-WATER 250 ML IV SCH (10:20)
[2016-09-14] MEDS: NICOTINE 14 MG/24 HR PATCH.TD24 TD SCH (10:20)
[2016-09-14] MEDS: GUAIFENESIN 600 MG TABLET.SA PO SCH ×2 (10:21→22:16)
[2016-09-14] MEDS: ENOXAPARIN SODIUM INJ 40 MG/0.4 ML DISP.SYRIN SUBCUT SCH (10:21)
[2016-09-14] MEDS: FAMOTIDINE 20 MG TABLET PO SCH ×2 (10:21→22:15)
[2016-09-14] MEDS: POLYETHYLENE GLYCOL 3350 POWDER 17 GM/1 PACKET PO PRN (14:25)
--- NOTE | 2016-09-14 15:48 | PDOC PROGRESS REPORT ---
Subjective Progress Note for:: 09/14/16 Subjective:: Patient seen on morning rounds. She is resting in bed. She is feeling better today. She states her breathing improved from admission. She is still coughing however it is nonproductive. She states the wheezing has improved. She denies any abdominal pain or diarrhea. She denies any significant arthralgias or myalgias. Rest of the review of systems negative. Physical Exam Vital Signs: Temp Pulse Resp BP Pulse Ox 97.5 F 77 22 H 125/58 L 92 09/14/16 11:58 09/14/16 13:21 09/14/16 11:58 09/14/16 11:58 09/14/16 11:58 Pulse Oximeter Continuous Start: 09/12/16 14: 05 Freq: RTQ4 Status: Active Document 09/14/16 11:41 JDR (Rec: 09/14/16 11:42 JDR [id number]) Pulse Oximetry Assessment Oxygen Saturation (92-100) 93 Oxygen Flow Rate (L/min) 4 Oxygen Delivery Method Nasal Cannula Equipment Usage Equipment in Use Continuous SpO2 Machine # 2 Intake & Output 09/13/16 09/14/16 09/15/16 06:59 06:59 06:59 Intake Total 516 1420 Output Total 1200 1180 Balance -684 240 Weight 63.3 kg 63.4 kg General appearance: PRESENT: no acute distress, obese, well-developed, well- nourished Head exam: PRESENT: atraumatic, normocephalic Eye exam: PRESENT: conjunctiva pink, EOMI, PERRLA. ABSENT: scleral icterus Ear exam: PRESENT: normal external ear exam Mouth exam: PRESENT: moist, tongue midline Respiratory exam: PRESENT: rhonchi, symmetrical, unlabored. ABSENT: rales, wheezes Cardiovascular exam: PRESENT: RRR. ABSENT: diastolic murmur, rubs, systolic murmur Pulses: PRESENT: normal dorsalis pedis pul Vascular exam: PRESENT: normal capillary refill GI/Abdominal exam: PRESENT: normal bowel sounds, soft. ABSENT: distended, guarding, mass, organolmegaly, rebound, tenderness Extremities exam: PRESENT: full ROM. ABSENT: calf tenderness, clubbing, pedal edema Neurological exam: PRESENT: alert, awake, oriented to person, oriented to place , oriented to time, oriented to situation, CN II-XII grossly intact. ABSENT: motor sensory deficit Psychiatric exam: PRESENT: appropriate affect, normal mood. ABSENT: homicidal ideation, suicidal ideation Skin exam: PRESENT: dry, intact, warm. ABSENT: cyanosis, rash Results Laboratory Results: 09/13/16 04:26 09/13/16 04:26 09/12/16 09/13/16 17:53 04:26 Troponin I < 0.012 NT-Pro-B Natriuret Pep 399 Impressions: Chest X-Ray 09/12/16 09:45 IMPRESSION: NO ACUTE RADIOGRAPHIC FINDING IN THE CHEST. Assessment & Plan - Diagnosis (1) Acute exacerbation of chronic obstructive pulmonary disease (COPD) Is this a current diagnosis for this admission?: YesPlan: Patient will be placed on IV ceftriaxone and azithromycin. IV Solu-Medrol and nebulizer treatments. We will start flutter valve and incentive telemetry as well. She was placed on oxygen at 2 L for room air oxygen saturation ration of 87%. (2) COPD (chronic obstructive pulmonary disease) Qualifiers: COPD type: chronic bronchitis Chronic bronchitis type: simple Qualified Code(s): J41.0 - Simple chronic bronchitis Plan: As above (3) Bipolar disorder Qualifiers: Most recent bipolar episode type: mixed Is this a current diagnosis for this admission?: YesPlan: Continue Zoloft (4) Gastroesophageal reflux disease Qualifiers: Esophagitis presence: esophagitis presence not specified Qualified Code(s): K21.9 - Gastro-esophageal reflux disease without esophagitis Is this a current diagnosis for this admission?: YesPlan: Continue PPI therapy (5) Hypercholesterolemia Is this a current diagnosis for this admission?: YesPlan: Continue statin therapy (6) Hypertension Qualifiers: Hypertension type: essential hypertension Qualified Code(s): I10 - Essential (primary) hypertension Is this a current diagnosis for this admission?: YesPlan: Continue medication patient is normotensive (7) Tobacco abuse Is this a current diagnosis for this admission?: YesPlan: Patient was counseled - Time Time Spent with patient: 25-34 minutes Critical Time spent with patient: 15-24 minutes Medications reviewed and adjusted accordingly: Yes
[2016-09-14] MEDS: ARIPIPRAZOLE 5 MG TABLET PO SCH (22:15)
[2016-09-14] MEDS: TRAZODONE HCL 50 MG TABLET PO SCH (22:16)
[2016-09-15] MEDS: GABAPENTIN 300 MG CAPSULE PO SCH ×4 (05:28→23:15)
[2016-09-15] MEDS: METHYLPREDNISOLONE INJ 125 MG/2 ML SDV IV SCH (05:28)
[2016-09-15] MEDS: SERTRALINE HCL 50 MG TABLET PO SCH (07:35)
[2016-09-15] MEDS: LANSOPRAZOLE 30 MG TAB.RAP.DR PO SCH (07:35)
[2016-09-15] MEDS: METFORMIN HCL 500 MG TABLET PO SCH (07:36)
[2016-09-15] MEDS: IPRATROPIUM/ALBUTEROL 0.5-2.5 MG/3 ML AMPUL NEB SCH ×4 (08:36→20:26)
[2016-09-15] MEDS: ACETYLCYSTEINE 20% SOLN 800 MG/4 ML VIAL.NEB NEB SCH ×2 (08:39→20:26)
[2016-09-15] MEDS ORDERED: SODIUM CHLORIDE NASAL SPRAY 44 ML NASL PRN (09:14)
[2016-09-15] MEDS: FLUTICASONE/SALMETEROL DISKUS 250-50 MCG/DOSE IH SCH ×2 (09:41→21:38)
[2016-09-15] MEDS: FLUTICASONE NASAL SPRAY 50 MCG/SPRY 120 SPRAY/16 GM NASL SCH (09:41)
[2016-09-15] MEDS: TIOTROPIUM BROMIDE DPI 5 CAP/KIT (18 MCG/CAP) IH SCH (09:41)
[2016-09-15] MEDS: NICOTINE 14 MG/24 HR PATCH.TD24 TD SCH (09:43)
[2016-09-15] MEDS: ENOXAPARIN SODIUM INJ 40 MG/0.4 ML DISP.SYRIN SUBCUT SCH (09:43)
[2016-09-15] MEDS: FAMOTIDINE 20 MG TABLET PO SCH ×2 (09:43→21:38)
[2016-09-15] MEDS: AZITHROMYCIN 500 MG in DEXTROSE 5%-WATER 250 ML IV SCH (09:44)
[2016-09-15] MEDS: GUAIFENESIN 600 MG TABLET.SA PO SCH ×2 (09:44→21:38)
[2016-09-15] MEDS: PREDNISONE 20 MG TABLET PO SCH (09:44)
[2016-09-15] MEDS: CEFTRIAXONE 1 GM/D5W RTU 50 ML IV SCH (09:45)
--- NOTE | 2016-09-15 11:04 | PDOC PROGRESS REPORT ---
Subjective Progress Note for:: 09/15/16 Subjective:: Patient seen on morning rounds. She is resting in bedside chair. She is feeling better today. She states her breathing is improved from admission. She is still coughing however it is nonproductive. She states the wheezing has improved. She had a mild epistaxis this morning from the oxygen. She denies any abdominal pain or diarrhea. She denies any significant arthralgias or myalgias. Rest of the review of systems negative. Physical Exam Vital Signs: Temp Pulse Resp BP Pulse Ox 98.1 F 77 16 105/60 94 09/15/16 07:11 09/15/16 08:36 09/15/16 08:36 09/15/16 07:11 09/15/16 08:36 Pulse Oximeter Continuous Start: 09/12/16 14: 05 Freq: RTQ4 Status: Active Document 09/15/16 08:36 [facility] (Rec: 09/15/16 08:45 [facility] [email or web address]) Pulse Oximetry Assessment Oxygen Saturation (92-100) 94 Oxygen Flow Rate (L/min) 5 Oxygen Delivery Method Nasal Cannula Equipment Usage Equipment in Use Continuous SpO2 Machine # 2 Intake & Output 09/14/16 09/15/16 09/16/16 06:59 06:59 06:59 Intake Total 1420 1801 Output Total 1180 1900 Balance 240 -99 Weight 63.4 kg 64.1 kg General appearance: PRESENT: no acute distress, obese, well-developed, well- nourished Head exam: PRESENT: atraumatic, normocephalic Eye exam: PRESENT: conjunctiva pink, EOMI, PERRLA. ABSENT: scleral icterus Ear exam: PRESENT: normal external ear exam Mouth exam: PRESENT: moist, tongue midline Neck exam: ABSENT: carotid bruit, JVD, lymphadenopathy, thyromegaly Respiratory exam: PRESENT: decreased breath sounds, rhonchi, symmetrical, unlabored Cardiovascular exam: PRESENT: RRR. ABSENT: diastolic murmur, rubs, systolic murmur Pulses: PRESENT: normal dorsalis pedis pul Vascular exam: PRESENT: normal capillary refill GI/Abdominal exam: PRESENT: normal bowel sounds, soft. ABSENT: distended, guarding, mass, organolmegaly, rebound, tenderness Rectal exam: PRESENT: deferred Extremities exam: PRESENT: full ROM. ABSENT: calf tenderness, clubbing, pedal edema Neurological exam: PRESENT: alert, awake, oriented to person, oriented to place , oriented to time, oriented to situation, CN II-XII grossly intact. ABSENT: motor sensory deficit Psychiatric exam: PRESENT: appropriate affect, normal mood. ABSENT: homicidal ideation, suicidal ideation Skin exam: PRESENT: dry, intact, warm. ABSENT: cyanosis, rash Results Laboratory Results: 09/13/16 04:26 09/13/16 04:26 09/12/16 09/13/16 17:53 04:26 Troponin I < 0.012 NT-Pro-B Natriuret Pep 399 Impressions: Chest X-Ray 09/12/16 09:45 IMPRESSION: NO ACUTE RADIOGRAPHIC FINDING IN THE CHEST. Assessment & Plan - Diagnosis (1) Acute exacerbation of chronic obstructive pulmonary disease (COPD) Is this a current diagnosis for this admission?: YesPlan: Improving. Will transition to oral prednisone and antibiotics in preparation for discharge. Will attempt to wean oxygen today (2) COPD (chronic obstructive pulmonary disease) Qualifiers: COPD type: chronic bronchitis Chronic bronchitis type: simple Qualified Code(s): J41.0 - Simple chronic bronchitis Plan: As above (3) Bipolar disorder Qualifiers: Most recent bipolar episode type: mixed Is this a current diagnosis for this admission?: YesPlan: Continue Zoloft (4) Gastroesophageal reflux disease Qualifiers: Esophagitis presence: esophagitis presence not specified Qualified Code(s): K21.9 - Gastro-esophageal reflux disease without esophagitis Is this a current diagnosis for this admission?: YesPlan: Continue PPI therapy (5) Hypercholesterolemia Is this a current diagnosis for this admission?: YesPlan: Continue statin therapy (6) Hypertension Qualifiers: Hypertension type: essential hypertension Qualified Code(s): I10 - Essential (primary) hypertension Is this a current diagnosis for this admission?: YesPlan: Continue medication patient is normotensive (7) Tobacco abuse Is this a current diagnosis for this admission?: YesPlan: Patient was counseled - Time Time Spent with patient: 25-34 minutes Critical Time spent with patient: 15-24 minutes Medications reviewed and adjusted accordingly: Yes Anticipated discharge: Home with Homehealth - Inpatient Certification Based on my medical assessment, after consideration of the patient's comorbidities, presenting symptoms, or acuity I expect that the services needed warrant INPATIENT care.: Yes I certify that my determination is in accordance with my understanding of Medicare's requirements for reasonable and necessary INPATIENT services [42 CFR 412.3e].: Yes Medical Necessity: Need Close Monitoring Due to Risk of Patient Decompensation, Need for Nebulizer Therapy and Monitoring of Response, Need for IV Antibiotics
[2016-09-15] MEDS: POLYETHYLENE GLYCOL 3350 POWDER 17 GM/1 PACKET PO PRN (17:55)
[2016-09-15] MEDS: ARIPIPRAZOLE 5 MG TABLET PO SCH (21:38)
[2016-09-15] MEDS: TRAZODONE HCL 50 MG TABLET PO SCH (21:39)
[2016-09-16] MEDS: GABAPENTIN 300 MG CAPSULE PO SCH ×2 (06:02→11:51)
[2016-09-16] MEDS: SERTRALINE HCL 50 MG TABLET PO SCH (08:22)
[2016-09-16] MEDS: METFORMIN HCL 500 MG TABLET PO SCH (08:22)
[2016-09-16] MEDS: LANSOPRAZOLE 30 MG TAB.RAP.DR PO SCH (08:23)
[2016-09-16] MEDS: ACETYLCYSTEINE 20% SOLN 800 MG/4 ML VIAL.NEB NEB SCH (08:27)
[2016-09-16] MEDS: IPRATROPIUM/ALBUTEROL 0.5-2.5 MG/3 ML AMPUL NEB SCH ×2 (08:27→11:28)
[2016-09-16] MEDS: FLUTICASONE NASAL SPRAY 50 MCG/SPRY 120 SPRAY/16 GM NASL SCH (09:54)
[2016-09-16] MEDS: FLUTICASONE/SALMETEROL DISKUS 250-50 MCG/DOSE IH SCH (09:55)
[2016-09-16] MEDS: TIOTROPIUM BROMIDE DPI 5 CAP/KIT (18 MCG/CAP) IH SCH (09:55)
[2016-09-16] MEDS: ENOXAPARIN SODIUM INJ 40 MG/0.4 ML DISP.SYRIN SUBCUT SCH (09:56)
[2016-09-16] MEDS: FAMOTIDINE 20 MG TABLET PO SCH (09:56)
[2016-09-16] MEDS: PREDNISONE 20 MG TABLET PO SCH (09:56)
[2016-09-16] MEDS: GUAIFENESIN 600 MG TABLET.SA PO SCH (09:57)
[2016-09-16] MEDS: POLYETHYLENE GLYCOL 3350 POWDER 17 GM/1 PACKET PO PRN (09:57)
[2016-09-16] MEDS: CEFTRIAXONE 1 GM/D5W RTU 50 ML IV SCH (09:58)
[2016-09-16] MEDS: AZITHROMYCIN 500 MG in DEXTROSE 5%-WATER 250 ML IV SCH (09:58)
[2016-09-16] MEDS: NICOTINE 14 MG/24 HR PATCH.TD24 TD SCH (09:59)
[2016-09-16 14:20] VITALS: BP 128/63
--- NOTE | 2016-09-16 16:55 | PDOC DISCHARGE SUMMARY ---
General - Admit/Disc Date/PCP Admission Date/Primary Care Provider: 09/12/16 14:05 FELIPA COFFEY, DO Discharge Date: 09/16/16 - Discharge Diagnosis (1) Acute exacerbation of chronic obstructive pulmonary disease (COPD) Is this a current diagnosis for this admission?: YesSummary: Continue oral antibiotics, prednisone, nebulizers. Patient will need home oxygen may be (2) COPD (chronic obstructive pulmonary disease) Summary: Continue current inhalers (3) Bipolar disorder Is this a current diagnosis for this admission?: YesSummary: Continue home medications (4) Gastroesophageal reflux disease Is this a current diagnosis for this admission?: Yes (5) Hypercholesterolemia Is this a current diagnosis for this admission?: YesSummary: Continue statin (6) Hypertension Is this a current diagnosis for this admission?: YesSummary: Continue home medications (7) Tobacco abuse Is this a current diagnosis for this admission?: YesSummary: Counseled - Additional Information Resuscitation Status: Full Code Discharge Diet: Regular Discharge Activity: Activity As Tolerated, Balance Activity w/Rest Home Medications: Albuterol Sulfate [Proair HFA] 2 puff IH Q4HP PRN 09/12/16 Albuterol Sulfate [Ventolin 0.083% Neb 2.5 mg/3 mL Ampul] 1 vial NEB Q4HP PRN Aripiprazole [Abilify] 20 mg PO QHS 09/12/16 Esomeprazole Mag Trihydrate [Nexium] 40 mg PO DAILY 09/12/16 Fluticasone Propionate [Flonase Nasal [place] 50 Mcg/[place] 16 gm] 1 spray NASL DAILY 09/12/16 Fluticasone/Salmeterol [Advair 250-50 Diskus 28 dose] 1 inh IH Q12 09/12/16 Gabapentin [Neurontin 300 mg Capsule] 300 mg PO QID 09/12/16 Metformin HCl [Glucophage] 500 mg PO QAM 09/12/16 Sertraline HCl [Zoloft] 150 mg PO QAM 09/12/16 Trazodone HCl [Desyrel] 200 mg PO QHS 09/12/16 Cefuroxime Axetil [Ceftin 500 mg Tablet] 500 mg PO BID #14 tablet 09/16/16 Prednisone [Deltasone 20 mg Tablet] 20 mg PO DAILY #5 tablet 09/16/16 Tiotropium [place] [Spiriva [place] 5 Cap/Kit (18 Mcg/Cap)] 1 cap IH DAILY # 1 kit 09/16/16 History of Present Illness Patient complains of: Increasing shortness of breath and wheezing History of Present Illness: Josselyn Isidro is a 61-year-old female with past medical history of asthma, COPD, no home oxygen, and tobacco abuse, who presents today with the onset 9 days ago of nasal congestion, rhinorrhea, and a nonproductive cough. The cough worsened and she was seen here 2 days ago and diagnosed with a pneumonia and placed on steroids and antibiotics. Patient states she started to develop some worsening shortness of breath with nausea without vomiting. She also complains of increased wheezing. She states low-grade fevers at night. She states some left anterior chest pain "only when I cough". She denies any calf pain, leg swelling, recent trips or travel in the last month. She denies any trouble with orthopnea or PND. She denies any other complaints. Hospital Course Hospital Course: Patient was admitted to telemetry unit. She was started on IV broad-spectrum antibiotics and IV steroids. Received nebulizer treatments [id number]. She was doing incentive spirometry and flutter valve as well. Cough began to improve. Patient feels much better today. Her room air oxygen saturation at rest was 87-88%. Patient was placed on 2 L nasal cannula her oxygen her oxygen saturation went up to 95%. Physical Exam Vital Signs: Temp Pulse Resp BP Pulse Ox 97.7 F 77 18 128/63 H 100 09/16/16 14:17 09/16/16 14:17 09/16/16 14:17 09/16/16 14:17 09/16/16 14:17 Pulse Oximeter Continuous Start: 09/12/16 14: 05 Freq: RTQ4 Status: Discharge Document 09/16/16 11:28 [facility] (Rec: 09/16/16 11:33 [facility] [email or web address]) Pulse Oximetry Assessment Oxygen Saturation (92-100) 92 Oxygen Flow Rate (L/min) 2 Oxygen Delivery Method Nasal Cannula Equipment Usage Equipment in Use Continuous SpO2 Machine # 2 Intake & Output 09/15/16 09/16/16 09/17/16 06:59 06:59 06:59 Intake Total 1801 2240 1617 Output Total 1900 2300 1800 Balance -99 -60 -183 Weight 64.1 kg 64.8 kg General appearance: PRESENT: no acute distress, obese, well-developed, well- nourished Head exam: PRESENT: atraumatic, normocephalic Eye exam: PRESENT: conjunctiva pink, EOMI, PERRLA. ABSENT: scleral icterus Ear exam: PRESENT: normal external ear exam Mouth exam: PRESENT: moist, tongue midline Neck exam: ABSENT: carotid bruit, JVD, lymphadenopathy, thyromegaly Respiratory exam: PRESENT: decreased breath sounds, symmetrical, unlabored Cardiovascular exam: PRESENT: RRR. ABSENT: diastolic murmur, rubs, systolic murmur Pulses: PRESENT: normal dorsalis pedis pul Vascular exam: PRESENT: normal capillary refill GI/Abdominal exam: PRESENT: normal bowel sounds, soft. ABSENT: distended, guarding, mass, organolmegaly, rebound, tenderness Rectal exam: PRESENT: deferred Extremities exam: PRESENT: full ROM. ABSENT: calf tenderness, clubbing, pedal edema Neurological exam: PRESENT: alert, awake, oriented to person, oriented to place , oriented to time, oriented to situation, CN II-XII grossly intact. ABSENT: motor sensory deficit Psychiatric exam: PRESENT: appropriate affect, normal mood. ABSENT: homicidal ideation, suicidal ideation Skin exam: PRESENT: dry, intact, warm. ABSENT: cyanosis, rash Results Laboratory Results: 09/13/16 04:26 09/13/16 04:26 09/12/16 09/13/16 17:53 04:26 Troponin I < 0.012 NT-Pro-B Natriuret Pep 399 Impressions: Chest X-Ray 09/12/16 09:45 IMPRESSION: NO ACUTE RADIOGRAPHIC FINDING IN THE CHEST. Qualifiers PATEINT BEING DISCHARGED WITH ANY OF THE FOLLOWING DIAGNOSIS?: No Plan Discharge Plan: Home with friend Time Spent: Less than 30 Minutes
== END 2016-09-16 14:35 | disposition home or self-care (01) | DRG 191 ==
LOC: ER 09:39 → EH 14:05 → UNDOADMIN 14:20 → EH 14:20 → 4W 17:21
PROVIDERS: ADMIT Family Medicine; ATTEND Family Medicine
DX: J44.1 Chronic obstructive pulmonary disease with (acute) exacerbation (principal); F31.89 Other bipolar disorder; K21.9 Gastro-esophageal reflux disease without esophagitis; E78.00 Pure hypercholesterolemia, unspecified; I10 Essential (primary) hypertension; E78.5 Hyperlipidemia, unspecified; Z79.899 Other long term (current) drug therapy; Z88.6 Allergy status to analgesic agent; F17.210 Nicotine dependence, cigarettes, uncomplicated
CPT/HCPCS: 36415; 36600; 71010; 80048; 80053; 81001; 82550; 82553; 82803; 83880; 84484; 85025; 93005; 93010; 94640; 94667; 94761; 94762; 99285; J0456; J0696; J1650; J1885; J2930; J3490; J7060; J7512; J7620

== ENCOUNTER 2016-10-24 18:14 | Emergency (ER) | payer MEDICAID ==
[2016-10-24 18:22] VITALS: BP 133/63
[2016-10-24] MEDS ORDERED: LIDOCAINE 5% (700 MG) TRANSDERMAL ADH..PATCH TP ONE (18:57)
[2016-10-24] MEDS ORDERED: CEPHALEXIN 500 MG CAPSULE PO ONE (18:57)
--- NOTE | 2016-10-24 19:03 | ER Document Report ---
ED Skin Rash/Insect Bite/Abscs - General Chief Complaint: Bee Sting Stated Complaint: BUG BITE Time Seen by Provider: 10/24/16 18:46 Mode of Arrival: Ambulatory Information source: Patient Notes: 61-year-old female presents to ED for bee sting to the left breast yesterday. She states she has scratched them. It is now become red and inflamed with a little sore on it. Denies any facial swelling or difficulty breathing. She also complains of right knee pain. She states she was having some popping and at the last couple days then she noticed it started swelling. She said it has been popping off and on for years, the swelling started the last couple days. TRAVEL OUTSIDE OF THE [place] IN LAST 30 DAYS: No - HPI Patient complains to provider of: Insect sting, Other - right knee pain for couple days Onset: Yesterday Onset/Duration: Gradual, Worse Quality of pain: Burning - left breast and right knee for couple days Severity: Moderate Skin Character: Erythema, Tenderness Skin Temperature: Warm Quality of rash: Itchy Identify cause: Yes Exacerbated by: Movement, Walking - right knee Relieved by: Denies Similar symptoms previously: Yes Recently seen / treated by doctor: No - Related Data Allergies/Adverse Reactions: codeine [Codeine] Allergy (Verified 09/12/16 09:42) aspirin [Aspirin] Adverse Reaction (Mild, Verified 09/12/16 10:40) Nausea Past Medical History - General Information source: Patient - Social History Smoking Status: Current Every Day Smoker Cigarette use (# per day): Yes - ppd Chew tobacco use (# tins/day): No Smoking Education Provided: Yes - less than 2 min Frequency of alcohol use: Social - every other week Drug Abuse: None Occupation: none Lives with: Alone Family History: COPD, Hypertension Patient has suicidal ideation: No Patient has homicidal ideation: No - Past Medical History Cardiac Medical History: Reports: Hx Hypercholesterolemia, Hx Hypertension Pulmonary Medical History: Reports: Hx Asthma, Hx Bronchitis, Hx COPD EENT Medical History: Reports: None Neurological Medical History: Reports: None Endocrine Medical History: Reports: None Renal/ Medical History: Reports: None Malignancy Medical History: Reports: None GI Medical History: Reports: None Musculoskeltal Medical History: Reports Hx Arthritis, Reports Hx Musculoskeletal Deformity Skin Medical History: Reports None Psychiatric Medical History: Reports: Hx Bipolar Disorder, Hx Depression, Hx Schizophrenia Traumatic Medical History: Reports: None Infectious Medical History: Reports: None Past Surgical History: Reports: Hx Gynecologic Surgery - uterine scraping, Hx Tubal Ligation - Immunizations Immunizations up to date: Yes Hx Diphtheria, Pertussis, Tetanus Vaccination: Yes - UTD Review of Systems - Review of Systems Constitutional: No symptoms reported EENT: No symptoms reported Cardiovascular: No symptoms reported Respiratory: No symptoms reported Gastrointestinal: No symptoms reported Genitourinary: No symptoms reported Female Genitourinary: No symptoms reported Musculoskeletal: Other - right knee pain and swelling Skin: Other - erythema and swelling to left breast Hematologic/Lymphatic: No symptoms reported Neurological/Psychological: No symptoms reported -: Yes All other systems reviewed and negative Physical Exam - Vital signs Vitals: Temp Pulse Resp BP Pulse Ox 99 F 72 20 133/63 H 94 10/24/16 18:17 10/24/16 18:17 10/24/16 18:17 10/24/16 18:17 10/24/16 18:17 Interpretation: Normal - General General appearance: Appears well, Alert - HEENT Head: Normocephalic, Atraumatic Eyes: Normal Pupils: PERRL - Respiratory Respiratory status: No respiratory distress Chest status: Tender - Left breast tenderness, was stung by a bee and then scratched to the night and now has a cellulitis to the area. Breath sounds: Normal Chest palpation: Normal - Cardiovascular Rhythm: Regular Heart sounds: Normal auscultation Murmur: No - Abdominal Inspection: Normal Distension: No distension Bowel sounds: Normal Tenderness: Nontender Organomegaly: No organomegaly - Back Back: Normal, Nontender - Extremities General upper extremity: Normal inspection, Nontender, Normal color, Normal ROM , Normal temperature General lower extremity: Normal inspection, Nontender, Normal color, Normal ROM , Normal temperature, Normal weight bearing. No: Aldair's sign - Neurological Neuro grossly intact: Yes Cognition: Normal Orientation: AAOx4 [place] Coma Scale Eye Opening: Spontaneous [place] Coma Scale Verbal: Oriented [place] Coma Scale Motor: Obeys Commands [place] Coma Scale Total: 15 Speech: Normal Motor strength normal: LUE, RUE, LLE, RLE Sensory: Normal - Psychological Associated symptoms: Normal affect, Normal mood - Skin Skin Temperature: Warm Skin Moisture: Dry Skin Color: Normal Location of irregularity: Other - Left breast tenderness, was stung by a bee and then scratched to the night and now has a cellulitis to the area. Irregularity with: Swelling, Tenderness, Warmth, Inflammation Course - Re-evaluation Re-evalutation: 10/24/16 19:06 Patient was treated with Lidoderm to the right knee for pain and swelling, and with Keflex for cellulitis to the left breast - Vital Signs Vital signs: Temp Pulse Resp BP Pulse Ox 99 F 72 20 133/63 H 94 10/24/16 18:17 10/24/16 18:17 10/24/16 18:17 10/24/16 18:17 10/24/16 18:17 Discharge - Discharge Clinical Impression: Cellulitis of left breast Pain in right knee Qualifiers: Chronicity: unspecified Qualified Code(s): M25.561 - Pain in right knee Condition: Stable Disposition: HOME, SELF-CARE Additional Instructions: CELLULITIS: You have an infection of your skin and underlying soft tissues called cellulitis. This is due to bacteria, which can enter through any break in the skin, or even through an irritated hair follicle. Untreated, cellulitis will usually worsen. Antibiotics are required. Usually, warm packs or warm soaks, and elevation of the infected area are recommended. You should start getting better within 24 to 36 hours. Most infections respond quickly to the right medication. Follow-up care is important, however, to check for abscess (boil) formation, unsuspected foreign body, or resistant infection. If you develop fever, chills, or if the area of infection is becoming rapidly more swollen or painful, call the doctor at once. Cephalexin The antibiotic you've been prescribed is a member of the cephalosporin class. This type of antibiotic covers a wide variety of infections, including those of the skin, lungs, and urinary tract. It's useful for staph infections. This antibiotic is slightly similar to the penicillin family. In rare cases , a person who is allergic to penicillin will also be allergic to this medication. If you have had a severe allergic reaction to penicillin, and have not taken this antibiotic since that time, notify your doctor. Antibiotics which cover many germs ("broad spectrum" antibiotics) are more likely to cause diarrhea or "yeast" infections. Women prone to vaginal yeast problems may suffer an attack after taking this antibiotic. In infants, oral thrush (white spots "stuck" on the cheek) or yeast diaper rash may result. See your doctor if these problems occur. Call at once if you develop itching, hives , shortness of breath, or lightheadedness. SOAP CLEANSING: Gently wash the wound daily using a mild soap (like Ivory, Phisoderm, Neutrogena). Use warm water, rubbing gently until all debris, ooze, and crusting have been washed from the wound. Allow to dry briefly (about 10 minutes) after cleaning. Repeat this cleansing at least three times a day for the first two days and then once or twice a day. ANTIBIOTIC OINTMENT PROTECTION: Your wounds are such that dressing them is not practical or optional. After cleansing, you should apply a thin coating of antibiotic ointment ( Bacitracin, not Neosporin) to the wounds at least three times daily. This lessens infection risk, and may decrease the amount of scarring. Use a q-tip or dull butter knife, not your finger, to apply this ointment. Any debris or ooze which builds up in the ointment should be gently rubbed off with a sterile gauze pad. Harder crusting may need to be gently scrubbed off with a clean wash cloth with soap and warm water, perhaps applying a warm, wet wash cloth to the wound for ten minutes first. Development of redness, severe itching, or blistering may mean allergy to the ointment. See the doctor. Please remove Lidoderm patch and 12 hours, you can use the cream as per directions on package to the area for pain to the right knee FOLLOW-UP CARE: If you have been referred to a physician for follow-up care, call the physician s office for an appointment as you were instructed or within the next two days. If you experience worsening or a significant change in your symptoms, notify the physician immediately or return to the Emergency Department at any time for re-evaluation. Prescriptions: Cephalexin Monohydrate [Keflex 500 mg Capsule] 500 mg PO QID #20 capsule Forms: Elevated Blood Pressure, Smoking Cessation Education Referrals: FELIPA COFFEY DO [Primary Care Provider] - Follow up as needed REBEKAH SEARS MD [ACTIVE STAFF] - Follow up as needed
== END 2016-10-24 19:30 | disposition home or self-care (01) ==
LOC: ER 18:14
DX: T63.441A Toxic effect of venom of bees, accidental (unintentional), initial encounter (principal); N61.0 Mastitis without abscess; M25.561 Pain in right knee; M25.461 Effusion, right knee; I10 Essential (primary) hypertension; J44.9 Chronic obstructive pulmonary disease, unspecified; F17.210 Nicotine dependence, cigarettes, uncomplicated; Z71.6 Tobacco abuse counseling; Z88.5 Allergy status to narcotic agent
CPT/HCPCS: 99282; J3490

== ENCOUNTER 2016-11-19 08:21 | Day surgery (SDC) | payer MEDICAID ==
[~2016-11-19 08:21] MED LIST: PROPOFOL INJ 200 MG/20 ML VIAL IV ONE
[2016-11-19 10:31] VITALS: BP 120/59
--- NOTE | 2016-11-19 12:57 | Operative Report ---
Operative Report DATE OF SURGERY: 11/19/16 Operative Report: The risks, benefits and alternatives of the procedure including risks of bleeding, perforation requiring surgery are explained to the patient in detail and informed consent was obtained. Patient was taken back to the endoscopy suite and placed in the left, lateral decubital position. Timeout was called. Propofol medications administered. A rectal examination was done which did not reveal any masses, tears or fissures. An Olympus videoscope was inserted into the patient's rectum. The scope was then carefully advanced all the way to the cecum. The cecum was identified by the usual anatomical landmarks including the ileocecal valve as well as the appendiceal office. Photodocumentation was obtained. Prep is good. The scope was then sequentially pulled back via the various segments of the colon including the ascending colon, hepatic flexure, transverse colon, splenic flexure, descending colon finding to the rectosigmoid portions of the colon. Retroflexion maneuver was performed. The risks benefits and alternatives of the procedure explained to the patient in detail and informed consent is obtained.A GIF Olympus video scope was inserted into the patient's mouth and hypopharynx, the esophagus is identified intubated and insufflated, the scope was then advanced through the esophagus stomach and duodenum, retroflexion maneuver is done, the esophagus stomach and first and second portions of the duodenum examined PREOPERATIVE DIAGNOSIS: Colorectal cancer screening. Epigastric pain POSTOPERATIVE DIAGNOSIS: Sigmoid polyp was removed via biopsy forceps. Mild right side inflammation status post biopsy rule out collagenous, lymphocytic, microscopic colitis. Internal hemorrhoids. Upper endoscopy findings include esophagitis, gastritis and duodenitis. There is a hiatal hernia. Gastric mucosal specimens obtained to rule out Helicobacter pylori OPERATION: Colonoscopy with biopsy. EGD with biopsy SURGEON: ADELAIDA FRASER ANESTHESIA: LMAC TISSUE REMOVED OR ALTERED: As described above. COMPLICATIONS: None. ESTIMATED BLOOD LOSS: None. INTRAOPERATIVE FINDINGS: As described above. PROCEDURE: Patient tolerated procedure well. No immediate postprocedure complications are noted. Patient discharged in good condition. Discharge date 11/19/2016 Discharge diet: Regular. Discharge activity: Regular. 2-3 week follow-up to discuss findings. Patient is instructed to call the office or proceed to the emergency room should there be any further problems or questions. We will wait on pathology. 3-5 year surveillance colonoscopy.
== END 2016-11-19 10:25 | disposition home or self-care (01) ==
LOC: END 08:21
PROVIDERS: ATTEND Internal Medicine Gastroenterology
PROC: 0DBN8ZX Excision of Sigmoid Colon, Via Natural or Artificial Opening Endoscopic, Diagnostic (ICD-10-PCS; 2016-11-19)
PROC: 0DB68ZX Excision of Stomach, Via Natural or Artificial Opening Endoscopic, Diagnostic (ICD-10-PCS; principal; 2016-11-19 10:30)
PROC: 0DBF8ZX Excision of Right Large Intestine, Via Natural or Artificial Opening Endoscopic, Diagnostic (ICD-10-PCS; 2016-11-19 10:30)
DX: D12.5 Benign neoplasm of sigmoid colon (principal); K52.9 Noninfective gastroenteritis and colitis, unspecified; K64.8 Other hemorrhoids; K20.9 Esophagitis, unspecified; K29.70 Gastritis, unspecified, without bleeding; K29.80 Duodenitis without bleeding; K44.9 Diaphragmatic hernia without obstruction or gangrene; R73.03 Prediabetes; M15.9 Polyosteoarthritis, unspecified; I10 Essential (primary) hypertension; E78.2 Mixed hyperlipidemia; J44.9 Chronic obstructive pulmonary disease, unspecified; F17.210 Nicotine dependence, cigarettes, uncomplicated; G43.909 Migraine, unspecified, not intractable, without status migrainosus; Z79.51 Long term (current) use of inhaled steroids; Z79.84 Long term (current) use of oral hypoglycemic drugs; Z79.82 Long term (current) use of aspirin
CPT/HCPCS: 43239; 45380; 82962; 88305 ×2; J2704; 740

== ENCOUNTER → 2017-02-22 | Outpatient (CLI) | payer MEDICAID ==
--- NOTE | 2017-02-22 14:14 | RADIOLOGY REPORT (SQ) ---
EXAM DESCRIPTION: CT CHEST WITHOUT COMPLETED DATE/TIME: 02/22/2017 1:09 pm REASON FOR STUDY: HEMOPTYSIS R04.2 HEMOPTYSIS COMPARISON: None. TECHNIQUE: CT scan performed of the chest without intravenous contrast. Images reviewed with lung, soft tissue and bone windows. Reconstructed coronal and sagittal MPR images reviewed. All images st ored on PACS. All CT scanners at this facility use dose modulation, iterative reconstruction, and/or weight based d osing when appropriate to reduce radiation dose to as low as reasonably achievable (ALARA). [facility]: Dose Right [facility]: CareDose [facility]: Dose Right [facility]: Teradose 4D [facility]: Smart Zkatter RADIATION DOSE: CT Rad equipment meets quality standard of care and radiation dose reduction techniq ues were employed. CTDIvol: 6.6 mGy. DLP: 220 mGy-cm. mGy. LIMITATIONS: No technical limitations. FINDINGS: LUNGS AND PLEURA: No masses, infiltrates, pneumothorax. No pleural effusions, calcificati ons. HILAR AND MEDIASTINAL STRUCTURES: No identified masses or abnormal nodes. No obvious aneurysm. HEART AND VASCULAR STRUCTURES: No aneurysm. No pericardial effusion. UPPER ABDOMEN: No significant findings. Limited exam. THYROID AND OTHER SOFT TISSUES: No masses. No adenopathy. BONES: No significant finding. HARDWARE: None in the chest. OTHER: No other significant findings. IMPRESSION: NO SIGNIFICANT FINDING ON NON-CONTRASTED CHEST CT. TECHNICAL DOCUMENTATION: JOB ID: [id number] Quality ID # [id number]: Final reports with documentation of one or more dose reduction techniques (e.g., Au tomated exposure control, adjustment of the mA and/or kV according to patient size, use of iterative reconstruction technique) 2010 [employer]- All Rights Reserved
== END ==
LOC: RAD 12:46
PROVIDERS: ATTEND Internal Medicine Critical Care Medicine
DX: R04.2 Hemoptysis (principal)
CPT/HCPCS: 71250

== ENCOUNTER 2017-03-09 02:11 | Inpatient (IN) | payer MEDICAID ==
[2017-03-09] MEDS ORDERED: IPRATROPIUM/ALBUTEROL 0.5-2.5 MG/3 ML AMPUL NEB ONE ×2 (02:20→04:25)
[2017-03-09 02:41] LABS: ABSOLUTE EOSINOPHILS # (AUTO) 0.1 10^3/uL (0.0-0.6); ABSOLUTE LYMPHOCYTES (AUTO) 1.6 10^3/uL (0.5-4.7); ABSOLUTE NEUT (AUTO) 3.8 10^3/uL (1.7-8.2); BASOPHILS % (AUTO) 0.7 % (0-2); EOSINOPHILS % (AUTO) 1.7 % (0-6); HEMATOCRIT 45.2 % (36.0-47.0); HEMOGLOBIN 15.5 g/dL (12.0-15.5); HGB HCT DIFFERENCE 1.3; LYMPHOCYTES % (AUTO) 24.4 % (13-45); MEAN CORPUSCULAR HEMOGLOBIN 30.1 pg (27.0-33.4); MEAN CORPUSCULAR HGB CONC 34.4 g/dL (32.0-36.0); MEAN CORPUSCULAR VOLUME 87 fl (80-97); MONOCYTES % (AUTO) 15.7 % (3-13); RED BLOOD COUNT 5.17 10^6/uL (3.72-5.28); RED CELL DISTRIBUTION WIDTH 13.9 % (11.5-14.0); SEGMENTED NEUTROPHILS % (AUTO) 57.5 % (42-78); WHITE BLOOD COUNT 6.5 10^3/uL (4.0-10.5)
[2017-03-09] MEDS: ALBUTEROL SULFATE 0.083% NEB 2.5 MG/3 ML AMPUL NEB SCH ×2 (02:42→02:52)
[2017-03-09 03:04] LABS: ALANINE AMINOTRANSFERASE 28 U/L (9-52); ALBUMIN 4.6 g/dL (3.5-5.0); ALKALINE PHOSPHATASE 63 U/L (38-126); ANION GAP 13 (5-19); ASPARTATE AMINO TRANSFERASE 28 U/L (14-36); BILIRUBIN,DIRECT 0.4 mg/dL (0.0-0.4); BILIRUBIN,TOTAL 0.8 mg/dL (0.2-1.3); BLOOD UREA NITROGEN 14 mg/dL (7-20); CALCIUM 9.4 mg/dL (8.4-10.2); CARBON DIOXIDE 26 mmol/L (22-30); CHLORIDE 103 mmol/L (98-107); CREATINE KINASE 249 U/L (30-135); CREATININE RESULT 0.91 mg/dL (0.52-1.25); GLUCOSE 104 mg/dL (75-110); SODIUM 142.2 mmol/L (137-145); TOTAL PROTEIN 7.7 g/dL (6.3-8.2)
[2017-03-09 03:15] LABS: CREATINE KINASE MB 1.87 ng/mL (<4.55); TROPONIN I 0.012 ng/mL
[2017-03-09 03:35] LABS: VENOUS BLOOD BASE EXCESS -0.3 mmol/L; VENOUS BLOOD HCO3 25.1 mmol/L (20-32); VENOUS BLOOD PCO2 43.5 mmHg (35-63); VENOUS BLOOD PH 7.38 (7.30-7.42)
--- NOTE | 2017-03-09 04:22 | RADIOLOGY REPORT (SQ) ---
EXAM DESCRIPTION: CHEST SINGLE VIEW CLINICAL HISTORY: DB COMPARISON: 09/12/2016 FINDINGS: Single frontal view of the chest. The cardiomediastinal silhouette has normal size and contour. No consolidation, pneumothorax, or pleural effusion. No displaced rib fractures identified. Upper abdominal soft tissues are unremarkable. Leads overlie the chest. IMPRESSION: 1. No acute pulmonary process identified.
[2017-03-09] MEDS ORDERED: ACETAMINOPHEN 325 MG TABLET PO ONE (04:30)
--- NOTE | 2017-03-09 04:38 | ER Document Report ---
ED General - General Chief Complaint: Breathing Difficulty Stated Complaint: SHORTNESS OF BREATH Time Seen by Provider: 03/09/17 02:36 Mode of Arrival: Medic Information source: Patient TRAVEL OUTSIDE OF THE [place] IN LAST 30 DAYS: No - HPI Patient complains to provider of: sob/cough Onset: This afternoon Onset/Duration: Gradual Quality of pain: No pain Exacerbated by: Walking, Coughing, Deep breathing Relieved by: Denies Similar symptoms previously: Yes - Related Data Allergies/Adverse Reactions: codeine [Codeine] Allergy (Severe, Verified 11/19/16 08:49) Asthma aspirin [Aspirin] Adverse Reaction (Mild, Verified 11/19/16 08:49) Nausea Past Medical History - General Information source: Patient - Social History Smoking Status: Current Every Day Smoker Chew tobacco use (# tins/day): No Frequency of alcohol use: Rare Drug Abuse: None Lives with: Alone Family History: COPD, Hypertension Patient has suicidal ideation: No Patient has homicidal ideation: No - Past Medical History Cardiac Medical History: Reports: Hx Hypercholesterolemia Denies: Hx Coronary Artery Disease, Hx Heart Attack, Hx Hypertension Pulmonary Medical History: Reports: Hx Asthma, Hx Bronchitis, Hx COPD, Hx Pneumonia Neurological Medical History: Denies: Hx Cerebrovascular Accident, Hx Seizures Endocrine Medical History: Reports: None Renal/ Medical History: Denies: Hx Peritoneal Dialysis Musculoskeltal Medical History: Reports Hx Arthritis, Reports Hx Musculoskeletal Deformity Psychiatric Medical History: Reports: Hx Bipolar Disorder, Hx Depression, Hx Schizophrenia Past Surgical History: Reports: Hx Gynecologic Surgery - uterine scraping, Hx Tubal Ligation - Immunizations Immunizations up to date: Yes Hx Diphtheria, Pertussis, Tetanus Vaccination: Yes - UTD Hx Pneumococcal Vaccination: 11/09/16 Review of Systems - Review of Systems Constitutional: Weakness EENT: No symptoms reported Cardiovascular: No symptoms reported Respiratory: Cough, Hurts to breathe, Short of breath, Sputum, Wheezing Gastrointestinal: No symptoms reported Genitourinary: No symptoms reported Musculoskeletal: No symptoms reported Skin: No symptoms reported Hematologic/Lymphatic: No symptoms reported Neurological/Psychological: No symptoms reported Physical Exam - Vital signs Vitals: Resp Pulse Ox 20 92 03/09/17 02:20 03/09/17 02:20 - Notes Notes: PHYSICAL EXAMINATION: GENERAL: Moderate distress, sitting up in bed tachypnic. HEAD: Atraumatic, normocephalic. EYES: Pupils equal round and reactive to light, extraocular movements intact, conjunctiva are normal. ENT: Nares patent, oropharynx clear without exudates. Moist mucous membranes. NECK: Normal range of motion, supple without lymphadenopathy LUNGS: b/l wheezing and rhonchi HEART: Regular rate and rhythm without murmurs ABDOMEN: Soft, nontender, nondistended abdomen. No guarding, no rebound. No masses appreciated. Female : deferred Musculoskeletal: Normal range of motion, no pitting or edema. No cyanosis. NEUROLOGICAL: Cranial nerves grossly intact. Normal speech, normal gait. Normal sensory, motor exams PSYCH: Normal mood, normal affect. SKIN: Warm, Dry, normal turgor, no rashes or lesions noted. Course - Re-evaluation Re-evalutation: 03/09/17 05:[address] He for Dr. Hay - Vital Signs Vital signs: Temp Pulse Resp BP Pulse Ox 23 H 129/63 H 92 03/09/17 04:01 03/09/17 04:00 03/09/17 04:01 - Laboratory Result Diagrams: 03/09/17 02:26 03/09/17 02:26 Laboratory results interpreted by me: 03/09/17 03/09/17 02:26 02:26 Monocytes % 15.7 H Creatine Kinase 249 H - Diagnostic Test Radiology reviewed: Image reviewed, Reports reviewed Radiology results interpreted by me: 03/09/17 04:37 no acute findings on CXR - EKG Interpretation by Me EKG shows normal: Sinus rhythm Rate: Normal Rhythm: NSR When compared to previous EKG there are: No significant change Discharge - Discharge Clinical Impression: Acute exacerbation of chronic obstructive pulmonary disease (COPD) Condition: Serious Disposition: ADMITTED INPATIENT Admitting Provider: [facility] Admitted: [facility] Referrals: YASMANI STOCKTON MD [Primary Care Provider] - Follow up as needed
[2017-03-09] MEDS ORDERED: CEFTRIAXONE INJ 1000 MG VIAL IV STA (04:43)
[2017-03-09] MEDS ORDERED: CEFTRIAXONE 1 GM/D5W RTU 1 GM/50 ML RTUPB IV SCH (05:00)
[2017-03-09] MEDS ORDERED: CEFTRIAXONE 1 GM/D5W RTU 1 GM/50 ML RTUPB IV ONE (05:01)
--- NOTE | 2017-03-09 05:37 | EKG REPORT ---
SEVERITY:- NORMAL ECG - SINUS RHYTHM : Confirmed by: Maggie Taylor 09-Mar-2017 05:37:25
[2017-03-09 06:25] LABS: APPEARANCE,URINE CLEAR; BILIRUBIN,URINE NEGATIVE (NEGATIVE); GLUCOSE, URINE NEGATIVE (NEGATIVE); KETONES,URINE NEGATIVE (NEGATIVE); LEUKOCYTE ESTERASE,URINE NEGATIVE (NEGATIVE); NITRITE,URINE NEGATIVE (NEGATIVE); PROTEIN,URINE NEGATIVE (NEGATIVE); URINE SPECIFIC GRAVITY 1.015; UROBILINOGEN,URINE NEGATIVE mg/dL (<2.0)
[2017-03-09] MEDS: IPRATROPIUM/ALBUTEROL 0.5-2.5 MG/3 ML AMPUL NEB SCH ×4 (08:22→20:39)
[2017-03-09] MEDS ORDERED: ACETAMINOPHEN 325 MG TABLET PO PRN (09:35)
--- NOTE | 2017-03-09 09:35 | PDOC H&P ---
History of Present Illness Admission Date/PCP: 03/09/17 05:10 YASMANI STOCKTON MD Patient complains of: Shortness of the breath History of Present Illness: DUARTE TAN is a 62 year old female This is a 62-year-old female with a significant history of the COPD and a chronic smoker came to the emergency department with a complaint of shortness of the breath and wheezing since last 1 week and increasing more cough and congestion's and the patient initial workup suggest the COPD with acute exacerbations and patient was giving the IV Solu-Medrol and the nebulizer treatments admitting in the IMCU I saw the patient patient is feeling better still having some mild wheezing but denied any chest pain denied any shortness of the breath Patient's denied any history of the heart problems Past Medical History Cardiac Medical History: Reports: Hyperlipidema Denies: Coronary Artery Disease, Myocardial Infarction, Hypertension Pulmonary Medical History: Reports: Asthma, Bronchitis, Chronic Obstructive Pulmonary Disease (COPD), Pneumonia Neurological Medical History: Denies: Seizures Endocrine Medical History: Reports: None Musculoskeltal Medical History: Reports: Arthritis Psychiatric Medical History: Reports: Bipolar Disorder, Depression Hematology: Reports: Anemia Past Surgical History Past Surgical History: Reports: Tubal Ligation Social History Lives with: Alone Smoking Status: Current Every Day Smoker Cigarettes Packs Per Day: 1 Frequency of Alcohol Use: Occasional Hx Recreational Drug Use: No Drugs: None Hx Prescription Drug Abuse: No - Advance Directive Resuscitation Status: Full Code Family History Family History: Reviewed & Not Pertinent, COPD, Hypertension Parental Family History Reviewed: Yes Children Family History Reviewed: Yes Sibling(s) Family History Reviewed.: Yes Medication/Allergy Home Medications: Albuterol Sulfate [Proair HFA] 2 puff IH Q4HP PRN 09/12/16 Aripiprazole [Abilify] 20 mg PO QHS 09/12/16 Esomeprazole Mag Trihydrate [Nexium] 40 mg PO DAILY 09/12/16 Fluticasone/Salmeterol [Advair 250-50 Diskus 28 dose] 1 inh IH Q12 09/12/16 Gabapentin [Neurontin 300 mg Capsule] 300 mg PO Q12 09/12/16 Metformin HCl [Glucophage] 500 mg PO WBRKFST 09/12/16 Sertraline HCl [Zoloft] 150 mg PO DAILY 09/12/16 Aspirin [Aspirin EC] 81 mg PO DAILY 03/09/17 Carbidopa/Levodopa [Sinemet 25-100 mg Tablet] 1 tab PO QHS 03/09/17 Montelukast Sodium [Singulair 10 mg Tablet] 10 mg PO QHS 03/09/17 Trazodone HCl [Desyrel] 225 mg PO QHS 03/09/17 Allergies/Adverse Reactions: codeine [Codeine] Allergy (Severe, Verified 11/19/16 08:49) Asthma aspirin [Aspirin] Adverse Reaction (Mild, Verified 11/19/16 08:49) Nausea Review of Systems Constitutional: ABSENT: chills, fever(s), headache(s), weight gain, weight loss Eyes: ABSENT: visual disturbances Ears: ABSENT: hearing changes Cardiovascular: ABSENT: chest pain, dyspnea on exertion, edema, orthropnea, palpitations Respiratory: PRESENT: cough, dyspnea. ABSENT: hemoptysis Gastrointestinal: ABSENT: abdominal pain, constipation, diarrhea, hematemesis, hematochezia, nausea, vomiting Genitourinary: ABSENT: dysuria, hematuria Musculoskeletal: ABSENT: joint swelling Integumentary: ABSENT: rash, wounds Neurological: ABSENT: abnormal gait, abnormal speech, confusion, dizziness, focal weakness, syncope Psychiatric: ABSENT: anxiety, depression, homidical ideation, suicidal ideation Endocrine: ABSENT: cold intolerance, heat intolerance, menstrual abnormalities, polydipsia, polyuria Hematologic/Lymphatic: ABSENT: easy bleeding, easy bruising, lymphadenopathy Physical Exam Vital Signs: Temp Pulse Resp BP Pulse Ox 98.9 F 80 27 H 115/67 95 03/09/17 06:50 03/09/17 07:00 03/09/17 07:16 03/09/17 07:16 03/09/17 07:16 Intake & Output 03/08/17 03/09/17 03/10/17 06:59 06:59 06:59 Weight 61.2 kg General appearance: PRESENT: no acute distress, well-developed, well-nourished Head exam: PRESENT: atraumatic, normocephalic Eye exam: PRESENT: conjunctiva pink, EOMI, PERRLA. ABSENT: scleral icterus Ear exam: PRESENT: normal external ear exam Mouth exam: PRESENT: moist, tongue midline Neck exam: PRESENT: full ROM. ABSENT: carotid bruit, JVD, lymphadenopathy, thyromegaly Respiratory exam: PRESENT: wheezes Cardiovascular exam: PRESENT: RRR. ABSENT: diastolic murmur, rubs, systolic murmur Pulses: PRESENT: normal dorsalis pedis pul, +2 pedal pulses bilateral Vascular exam: PRESENT: normal capillary refill GI/Abdominal exam: PRESENT: normal bowel sounds, soft. ABSENT: distended, guarding, mass, organolmegaly, rebound, tenderness Rectal exam: PRESENT: deferred Extremities exam: ABSENT: full ROM, left AKA, right AKA, left BKA, right BKA, calf tenderness, joint swelling, pedal edema, tenderness, other Musculoskeletal exam: PRESENT: ambulatory Neurological exam: PRESENT: alert, awake, oriented to person, oriented to place , oriented to time, oriented to situation, CN II-XII grossly intact. ABSENT: motor sensory deficit Psychiatric exam: PRESENT: appropriate affect, normal mood. ABSENT: homicidal ideation, suicidal ideation Skin exam: PRESENT: dry, intact, warm. ABSENT: cyanosis, rash Results Laboratory Results: 03/09/17 06:00 Urine Color YELLOW Urine Appearance CLEAR Urine pH 5.0 Ur Specific Mayer 1.015 Urine Protein NEGATIVE Urine Glucose (UA) NEGATIVE Urine Ketones NEGATIVE Urine Blood NEGATIVE Urine Nitrite NEGATIVE Ur Leukocyte Esterase NEGATIVE Urine WBC (Auto) 1 Urine RBC (Auto) 2 Impressions: Chest X-Ray 03/09/17 02:20 IMPRESSION: 1. No acute pulmonary process identified. Assessment & Plan - Diagnosis (1) Acute exacerbation of chronic obstructive pulmonary disease (COPD) Is this a current diagnosis for this admission?: Yes Plan: Continues to DuoNeb and IV Solu-Medrol (2) Bipolar disorder Qualifiers: Active/Remission status: currently active Is this a current diagnosis for this admission?: Yes (3) Gastroesophageal reflux disease Qualifiers: Esophagitis presence: without esophagitis Qualified Code(s): K21.9 - Gastro -esophageal reflux disease without esophagitis Is this a current diagnosis for this admission?: Yes Plan: Since the PPI (4) Hypercholesterolemia Is this a current diagnosis for this admission?: Yes (5) Hypertension Qualifiers: Hypertension type: essential hypertension Is this a current diagnosis for this admission?: Yes Plan: Warner to current medication (6) Tobacco abuse Is this a current diagnosis for this admission?: Yes Plan: Very extensive discussions with the patient about the smoking cessation - Time Time Spent: 30 to 50 Minutes Medications reviewed and adjusted accordingly: Yes Anticipated discharge: Home Within: Other - Inpatient Certification Medical Necessity: Need Close Monitoring Due to Risk of Patient Decompensation, Need for IV Antibiotics 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
[2017-03-09] MEDS ORDERED: GLUCAGON,HUMAN RECOMB 1 MG INJ IM PRN (09:37)
[2017-03-09] MEDS ORDERED: DEXTROSE 50%-WATER 25 GM/50 ML DISP.SYRIN IV PRN ×2 (09:37)
[2017-03-09] MEDS ORDERED: DEXTROSE 40% GEL 15 GM TUBE PO PRN ×2 (09:37)
[2017-03-09] MEDS ORDERED: LEVOFLOXACIN 500 MG TABLET PO ONE ×2 (10:30)
[2017-03-09] MEDS: ENOXAPARIN SODIUM INJ 40 MG/0.4 ML DISP.SYRIN SUBCUT SCH (10:39)
[2017-03-09] MEDS: METHYLPREDNISOLONE INJ 125 MG/2 ML SDV IV SCH ×2 (14:06→21:38)
[2017-03-09] MEDS: ALPRAZOLAM 0.25 MG TABLET PO PRN (14:06)
[2017-03-09] MEDS ORDERED: NICOTINE 21 MG/24 HR PATCH.TD24 TD ONE (19:00)
[2017-03-09] MEDS: MONTELUKAST SODIUM 10 MG TABLET PO SCH (21:39)
[2017-03-09] MEDS: ARIPIPRAZOLE 5 MG TABLET PO SCH (21:40)
[2017-03-09] MEDS: GABAPENTIN 300 MG CAPSULE PO SCH (21:40)
[2017-03-09] MEDS: TRAZODONE HCL 50 MG TABLET PO SCH (21:41)
[2017-03-09] MEDS: CARBIDOPA/LEVODOPA 25-100 MG TABLET PO SCH (21:42)
[2017-03-10] MEDS: IPRATROPIUM/ALBUTEROL 0.5-2.5 MG/3 ML AMPUL NEB SCH ×6 (00:07→20:05)
[2017-03-10 05:11] LABS: ABSOLUTE MONOCYTES (AUTO) 0.5 10^3/uL (0.1-1.4); ABSOLUTE NEUT (AUTO) 12.6 10^3/uL (1.7-8.2); BASOPHILS % (AUTO) 0.1 % (0-2); HEMATOCRIT 43.6 % (36.0-47.0); HEMOGLOBIN 14.7 g/dL (12.0-15.5); HGB HCT DIFFERENCE 0.5; LYMPHOCYTES % (AUTO) 7.1 % (13-45); MEAN CORPUSCULAR HEMOGLOBIN 29.7 pg (27.0-33.4); MEAN CORPUSCULAR HGB CONC 33.7 g/dL (32.0-36.0); MEAN CORPUSCULAR VOLUME 88 fl (80-97); MONOCYTES % (AUTO) 3.4 % (3-13); RED BLOOD COUNT 4.95 10^6/uL (3.72-5.28); RED CELL DISTRIBUTION WIDTH 14.2 % (11.5-14.0); SEGMENTED NEUTROPHILS % (AUTO) 89.4 % (42-78)
[2017-03-10 05:29] LABS: ANION GAP 15 (5-19); BLOOD UREA NITROGEN 18 mg/dL (7-20); CALCIUM 9.8 mg/dL (8.4-10.2); CARBON DIOXIDE 24 mmol/L (22-30); CHLORIDE 103 mmol/L (98-107); CREATININE RESULT 0.84 mg/dL (0.52-1.25); GLUCOSE 147 mg/dL (75-110); POTASSIUM 4.3 mmol/L (3.6-5.0); SODIUM 141.9 mmol/L (137-145)
[2017-03-10] MEDS: METHYLPREDNISOLONE INJ 125 MG/2 ML SDV IV SCH ×3 (06:09→21:42)
[2017-03-10] MEDS: LEVOFLOXACIN 250 MG TABLET PO SCH (10:33)
[2017-03-10] MEDS: ENOXAPARIN SODIUM INJ 40 MG/0.4 ML DISP.SYRIN SUBCUT SCH (10:33)
[2017-03-10] MEDS: SERTRALINE HCL 50 MG TABLET PO SCH (10:33)
[2017-03-10] MEDS: GABAPENTIN 300 MG CAPSULE PO SCH ×2 (10:33→21:42)
--- NOTE | 2017-03-10 10:36 | PDOC PROGRESS REPORT ---
Subjective Progress Note for:: 03/10/17 Subjective:: Patient is currently doing well Patient's denied any chest pain denied any shortness of the breath Reason For Visit: COPD ACUTE Physical Exam Vital Signs: Temp Pulse Resp BP Pulse Ox 97.6 F 82 15 114/66 91 L 03/10/17 08:06 03/10/17 08:17 03/10/17 08:17 03/10/17 08:06 03/10/17 08:06 Intake & Output 03/09/17 03/10/17 03/11/17 06:59 06:59 06:59 Intake Total 284 Output Total 200 Balance 84 Weight 61.2 kg 64.1 kg General appearance: PRESENT: no acute distress, well-developed, well-nourished Head exam: PRESENT: atraumatic, normocephalic Eye exam: PRESENT: conjunctiva pink, EOMI, PERRLA. ABSENT: scleral icterus Ear exam: PRESENT: normal external ear exam Mouth exam: PRESENT: moist, tongue midline Neck exam: PRESENT: full ROM. ABSENT: carotid bruit, JVD, lymphadenopathy, thyromegaly Respiratory exam: PRESENT: wheezes Cardiovascular exam: PRESENT: RRR. ABSENT: diastolic murmur, rubs, systolic murmur Pulses: PRESENT: normal dorsalis pedis pul, +2 pedal pulses bilateral Vascular exam: PRESENT: normal capillary refill GI/Abdominal exam: PRESENT: normal bowel sounds, soft. ABSENT: distended, guarding, mass, organolmegaly, rebound, tenderness Rectal exam: PRESENT: deferred Extremities exam: ABSENT: full ROM, left AKA, right AKA, left BKA, right BKA, calf tenderness, joint swelling, pedal edema, tenderness, other Musculoskeletal exam: PRESENT: ambulatory Neurological exam: PRESENT: alert, awake, oriented to person, oriented to place , oriented to time, oriented to situation, CN II-XII grossly intact. ABSENT: motor sensory deficit Psychiatric exam: PRESENT: appropriate affect, normal mood. ABSENT: homicidal ideation, suicidal ideation Skin exam: PRESENT: dry, intact, warm. ABSENT: cyanosis, rash Results Laboratory Results: 03/10/17 04:13 03/10/17 04:13 03/10/17 03/10/17 04:13 04:13 WBC 14.0 H D RBC 4.95 Hgb 14.7 Hct 43.6 MCV 88 MCH 29.7 MCHC 33.7 RDW 14.2 H Plt Count 171 Seg Neutrophils % 89.4 H Lymphocytes % 7.1 L Monocytes % 3.4 Eosinophils % 0.0 Basophils % 0.1 Absolute Neutrophils 12.6 H Absolute Lymphocytes 1.0 Absolute Monocytes 0.5 Absolute Eosinophils 0.0 Absolute Basophils 0.0 Sodium 141.9 Potassium 4.3 Chloride 103 Carbon Dioxide 24 Anion Gap 15 BUN 18 Creatinine 0.84 Est GFR ( Amer) > 60 Est GFR (Non-Af Amer) > 60 Glucose 147 H Calcium 9.8 Impressions: Chest X-Ray 03/09/17 02:20 IMPRESSION: 1. No acute pulmonary process identified. Assessment & Plan - Diagnosis (1) Acute exacerbation of chronic obstructive pulmonary disease (COPD) Is this a current diagnosis for this admission?: Yes Plan: Currently feeling much better will cut down the steroid (2) Bipolar disorder Qualifiers: Active/Remission status: currently active Is this a current diagnosis for this admission?: Yes (3) Gastroesophageal reflux disease Qualifiers: Esophagitis presence: without esophagitis Qualified Code(s): K21.9 - Gastro -esophageal reflux disease without esophagitis Is this a current diagnosis for this admission?: Yes Plan: Since the PPI (4) Hypercholesterolemia Is this a current diagnosis for this admission?: Yes (5) Hypertension Qualifiers: Hypertension type: essential hypertension Is this a current diagnosis for this admission?: Yes Plan: Warner to current medication (6) Tobacco abuse Is this a current diagnosis for this admission?: Yes - Time Time Spent with patient: 15-24 minutes Medications reviewed and adjusted accordingly: Yes Anticipated discharge: Home Within: within 24 hours - Inpatient Certification Medical Necessity: Need Close Monitoring Due to Risk of Patient Decompensation Post Hospital Care: D/C Mental Health Therapist Documentation - Plan Summary Plan Summary: continue to current medications
[2017-03-10] MEDS: ALPRAZOLAM 0.25 MG TABLET PO PRN (13:38)
[2017-03-10] MEDS: INSULIN LISPRO 100 UNIT/ML 3 ML VIAL SUBCUT PRN (17:41)
[2017-03-10] MEDS: NICOTINE 21 MG/24 HR PATCH.TD24 TD SCH (17:42)
[2017-03-10] MEDS: TRAZODONE HCL 50 MG TABLET PO SCH (21:39)
[2017-03-10] MEDS: CARBIDOPA/LEVODOPA 25-100 MG TABLET PO SCH (21:41)
[2017-03-10] MEDS: ARIPIPRAZOLE 5 MG TABLET PO SCH (21:41)
[2017-03-10] MEDS: MONTELUKAST SODIUM 10 MG TABLET PO SCH (21:42)
[2017-03-11] MEDS: IPRATROPIUM/ALBUTEROL 0.5-2.5 MG/3 ML AMPUL NEB SCH ×6 (00:41→20:24)
[2017-03-11] MEDS: METHYLPREDNISOLONE INJ 125 MG/2 ML SDV IV SCH ×3 (05:19→21:19)
[2017-03-11 05:54] LABS: ABSOLUTE LYMPHOCYTES (AUTO) 1.2 10^3/uL (0.5-4.7); ABSOLUTE MONOCYTES (AUTO) 0.5 10^3/uL (0.1-1.4); ABSOLUTE NEUT (AUTO) 14.3 10^3/uL (1.7-8.2); BASOPHILS % (AUTO) 0.1 % (0-2); HEMOGLOBIN 13.7 g/dL (12.0-15.5); HGB HCT DIFFERENCE 1.1; LYMPHOCYTES % (AUTO) 7.5 % (13-45); MEAN CORPUSCULAR HEMOGLOBIN 30.3 pg (27.0-33.4); MEAN CORPUSCULAR HGB CONC 34.3 g/dL (32.0-36.0); MEAN CORPUSCULAR VOLUME 88 fl (80-97); MONOCYTES % (AUTO) 3.4 % (3-13); RED BLOOD COUNT 4.53 10^6/uL (3.72-5.28); RED CELL DISTRIBUTION WIDTH 14.1 % (11.5-14.0)
[2017-03-11 06:20] LABS: ANION GAP 10 (5-19); BLOOD UREA NITROGEN 23 mg/dL (7-20); CALCIUM 9.6 mg/dL (8.4-10.2); CARBON DIOXIDE 26 mmol/L (22-30); CHLORIDE 104 mmol/L (98-107); CREATININE RESULT 0.89 mg/dL (0.52-1.25); GLUCOSE 138 mg/dL (75-110); POTASSIUM 4.5 mmol/L (3.6-5.0); SODIUM 140.2 mmol/L (137-145)
[2017-03-11] MEDS: SERTRALINE HCL 50 MG TABLET PO SCH (10:17)
[2017-03-11] MEDS: LEVOFLOXACIN 250 MG TABLET PO SCH (10:17)
[2017-03-11] MEDS: GABAPENTIN 300 MG CAPSULE PO SCH ×2 (10:18→21:19)
[2017-03-11] MEDS: ENOXAPARIN SODIUM INJ 40 MG/0.4 ML DISP.SYRIN SUBCUT SCH (10:18)
[2017-03-11] MEDS ORDERED: ACETAMINOPHEN 325 MG TABLET PO PRN (15:30)
[2017-03-11] MEDS: NICOTINE 21 MG/24 HR PATCH.TD24 TD SCH (17:09)
--- NOTE | 2017-03-11 17:47 | PDOC PROGRESS REPORT ---
Subjective Progress Note for:: 03/11/17 Subjective:: Patient was admitted over the weekend for the management of acute COPD exacerbation. She still on IV Solu-Medrol, she complained of acid reflux symptoms and cough Reason For Visit: COPD ACUTE Physical Exam Vital Signs: Temp Pulse Resp BP Pulse Ox 98.5 F 80 18 120/54 L 93 03/11/17 15:53 03/11/17 15:53 03/11/17 15:53 03/11/17 15:53 03/11/17 15:53 Intake & Output 03/10/17 03/11/17 03/12/17 06:59 06:59 06:59 Intake Total 284 1588 Output Total 200 Balance 84 1588 Weight 64.1 kg 63.4 kg General appearance: PRESENT: no acute distress Eye exam: PRESENT: PERRLA Respiratory exam: PRESENT: wheezes Cardiovascular exam: PRESENT: +S1, +S2 GI/Abdominal exam: PRESENT: soft Neurological exam: PRESENT: alert Results Laboratory Results: 03/11/17 05:10 03/11/17 05:10 03/11/17 03/11/17 05:10 05:10 WBC 16.0 H RBC 4.53 Hgb 13.7 Hct 40.0 MCV 88 MCH 30.3 MCHC 34.3 RDW 14.1 H Plt Count 190 Seg Neutrophils % 89.0 H Lymphocytes % 7.5 L Monocytes % 3.4 Eosinophils % 0.0 Basophils % 0.1 Absolute Neutrophils 14.3 H Absolute Lymphocytes 1.2 Absolute Monocytes 0.5 Absolute Eosinophils 0.0 Absolute Basophils 0.0 Sodium 140.2 Potassium 4.5 Chloride 104 Carbon Dioxide 26 Anion Gap 10 BUN 23 H Creatinine 0.89 Est GFR ( Amer) > 60 Est GFR (Non-Af Amer) > 60 Glucose 138 H Calcium 9.6 Impressions: Chest X-Ray 03/09/17 02:20 IMPRESSION: 1. No acute pulmonary process identified. Assessment & Plan - Diagnosis (1) Acute exacerbation of chronic obstructive pulmonary disease (COPD) Is this a current diagnosis for this admission?: Yes Plan: She is presently on IV Solu-Medrol, bronchodilators, she will continue same medication regimen (2) Bipolar disorder Qualifiers: Active/Remission status: currently active Is this a current diagnosis for this admission?: Yes (3) Tobacco abuse Is this a current diagnosis for this admission?: Yes
[2017-03-11] MEDS ORDERED: GUAIFENESIN SYRP 200 MG/10 ML UDC PO PRN (17:56)
[2017-03-11] MEDS ORDERED: LANSOPRAZOLE 30 MG TAB.RAP.DR PO ONE (18:30)
[2017-03-11] MEDS: ARIPIPRAZOLE 5 MG TABLET PO SCH (21:19)
[2017-03-11] MEDS: TRAZODONE HCL 50 MG TABLET PO SCH (21:20)
[2017-03-11] MEDS: CARBIDOPA/LEVODOPA 25-100 MG TABLET PO SCH (21:20)
[2017-03-11] MEDS: MONTELUKAST SODIUM 10 MG TABLET PO SCH (21:20)
[2017-03-12] MEDS: IPRATROPIUM/ALBUTEROL 0.5-2.5 MG/3 ML AMPUL NEB SCH ×7 (00:32→23:50)
[2017-03-12 04:20] LABS: ABSOLUTE LYMPHOCYTES (AUTO) 1.2 10^3/uL (0.5-4.7); ABSOLUTE MONOCYTES (AUTO) 0.4 10^3/uL (0.1-1.4); ABSOLUTE NEUT (AUTO) 12.2 10^3/uL (1.7-8.2); BASOPHILS % (AUTO) 0.2 % (0-2); HEMATOCRIT 43.2 % (36.0-47.0); HEMOGLOBIN 14.8 g/dL (12.0-15.5); HGB HCT DIFFERENCE 1.2; LYMPHOCYTES % (AUTO) 8.7 % (13-45); MEAN CORPUSCULAR HEMOGLOBIN 30.2 pg (27.0-33.4); MEAN CORPUSCULAR HGB CONC 34.3 g/dL (32.0-36.0); MEAN CORPUSCULAR VOLUME 88 fl (80-97); RED CELL DISTRIBUTION WIDTH 14.2 % (11.5-14.0); SEGMENTED NEUTROPHILS % (AUTO) 88.1 % (42-78); WHITE BLOOD COUNT 13.8 10^3/uL (4.0-10.5)
[2017-03-12 04:41] LABS: ANION GAP 14 (5-19); BLOOD UREA NITROGEN 24 mg/dL (7-20); CARBON DIOXIDE 25 mmol/L (22-30); CHLORIDE 104 mmol/L (98-107); CREATININE RESULT 0.95 mg/dL (0.52-1.25); GLUCOSE 152 mg/dL (75-110); POTASSIUM 4.5 mmol/L (3.6-5.0); SODIUM 142.8 mmol/L (137-145)
[2017-03-12] MEDS: METHYLPREDNISOLONE INJ 125 MG/2 ML SDV IV SCH ×3 (05:05→21:09)
[2017-03-12] MEDS: LANSOPRAZOLE 30 MG TAB.RAP.DR PO SCH ×2 (05:05→17:08)
[2017-03-12] MEDS: GABAPENTIN 300 MG CAPSULE PO SCH ×2 (09:43→21:09)
[2017-03-12] MEDS: LEVOFLOXACIN 250 MG TABLET PO SCH (09:43)
[2017-03-12] MEDS: ENOXAPARIN SODIUM INJ 40 MG/0.4 ML DISP.SYRIN SUBCUT SCH (09:43)
[2017-03-12] MEDS: SERTRALINE HCL 50 MG TABLET PO SCH (09:43)
[2017-03-12] MEDS: INSULIN LISPRO 100 UNIT/ML 3 ML VIAL SUBCUT PRN (12:12)
[2017-03-12] MEDS: NICOTINE 21 MG/24 HR PATCH.TD24 TD SCH (17:08)
--- NOTE | 2017-03-12 20:14 | PDOC PROGRESS REPORT ---
Subjective Progress Note for:: 03/12/17 Subjective:: Patient still complaining of shortness of breath, she was admitted for the management of acute COPD exacerbation Reason For Visit: COPD ACUTE Physical Exam Vital Signs: Temp Pulse Resp BP Pulse Ox 98.3 F 83 18 136/66 H 91 L 03/12/17 16:02 03/12/17 16:30 03/12/17 16:30 03/12/17 16:02 03/12/17 16:30 Intake & Output 03/11/17 03/12/17 03/13/17 06:59 06:59 06:59 Intake Total 1588 1913 1212 Balance 1588 1913 1212 Weight 63.4 kg 63.5 kg General appearance: PRESENT: mild distress Head exam: PRESENT: atraumatic, normocephalic Eye exam: PRESENT: conjunctiva pink, EOMI, PERRLA Ear exam: PRESENT: normal external ear exam Mouth exam: PRESENT: moist, tongue midline Neck exam: PRESENT: full ROM Respiratory exam: PRESENT: wheezes Cardiovascular exam: PRESENT: RRR, +S1, +S2 Pulses: PRESENT: normal dorsalis pedis pul, +2 pedal pulses bilateral Vascular exam: PRESENT: normal capillary refill GI/Abdominal exam: PRESENT: normal bowel sounds, soft. ABSENT: distended, guarding, mass, organolmegaly, rebound, tenderness Rectal exam: PRESENT: deferred Neurological exam: PRESENT: alert. ABSENT: motor sensory deficit Psychiatric exam: PRESENT: appropriate affect, normal mood. ABSENT: homicidal ideation, suicidal ideation Skin exam: PRESENT: dry, intact, warm. ABSENT: cyanosis, rash Results Laboratory Results: 03/12/17 04:05 03/12/17 04:05 03/12/17 03/12/17 04:05 04:05 WBC 13.8 H RBC 4.90 Hgb 14.8 Hct 43.2 MCV 88 MCH 30.2 MCHC 34.3 RDW 14.2 H Plt Count 186 Seg Neutrophils % 88.1 H Lymphocytes % 8.7 L Monocytes % 3.0 Eosinophils % 0.0 Basophils % 0.2 Absolute Neutrophils 12.2 H Absolute Lymphocytes 1.2 Absolute Monocytes 0.4 Absolute Eosinophils 0.0 Absolute Basophils 0.0 Sodium 142.8 Potassium 4.5 Chloride 104 Carbon Dioxide 25 Anion Gap 14 BUN 24 H Creatinine 0.95 Est GFR ( Amer) > 60 Est GFR (Non-Af Amer) > 60 Glucose 152 H Calcium 10.0 Impressions: Chest X-Ray 03/09/17 02:20 IMPRESSION: 1. No acute pulmonary process identified. Assessment & Plan - Diagnosis (1) Acute exacerbation of chronic obstructive pulmonary disease (COPD) Is this a current diagnosis for this admission?: Yes (2) Bipolar disorder Qualifiers: Active/Remission status: currently active Is this a current diagnosis for this admission?: Yes (3) Tobacco abuse Is this a current diagnosis for this admission?: Yes - Plan Summary Plan Summary: Continue treatment
[2017-03-12] MEDS: GUAIFENESIN 600 MG TABLET.SA PO SCH (21:08)
[2017-03-12] MEDS: TRAZODONE HCL 50 MG TABLET PO SCH (21:08)
[2017-03-12] MEDS: MONTELUKAST SODIUM 10 MG TABLET PO SCH (21:08)
[2017-03-12] MEDS: CARBIDOPA/LEVODOPA 25-100 MG TABLET PO SCH (21:09)
[2017-03-12] MEDS: ARIPIPRAZOLE 5 MG TABLET PO SCH (21:11)
[2017-03-13] MEDS: IPRATROPIUM/ALBUTEROL 0.5-2.5 MG/3 ML AMPUL NEB SCH ×3 (04:30→11:12)
[2017-03-13 04:55] LABS: HEMATOCRIT 41.3 % (36.0-47.0); HEMOGLOBIN 14.3 g/dL (12.0-15.5); HGB HCT DIFFERENCE 1.6; MEAN CORPUSCULAR HEMOGLOBIN 30.4 pg (27.0-33.4); MEAN CORPUSCULAR HGB CONC 34.7 g/dL (32.0-36.0); MEAN CORPUSCULAR VOLUME 88 fl (80-97); RED BLOOD COUNT 4.72 10^6/uL (3.72-5.28); RED CELL DISTRIBUTION WIDTH 14.2 % (11.5-14.0); WHITE BLOOD COUNT 13.1 10^3/uL (4.0-10.5)
[2017-03-13] MEDS: LANSOPRAZOLE 30 MG TAB.RAP.DR PO SCH (05:19)
[2017-03-13] MEDS: METHYLPREDNISOLONE INJ 125 MG/2 ML SDV IV SCH (05:19)
[2017-03-13 05:22] LABS: ALANINE AMINOTRANSFERASE 23 U/L (9-52); ALBUMIN 4.1 g/dL (3.5-5.0); ALKALINE PHOSPHATASE 55 U/L (38-126); ANION GAP 15 (5-19); ASPARTATE AMINO TRANSFERASE 18 U/L (14-36); BILIRUBIN,DIRECT 0.1 mg/dL (0.0-0.4); BILIRUBIN,TOTAL 0.3 mg/dL (0.2-1.3); BLOOD UREA NITROGEN 22 mg/dL (7-20); CALCIUM 9.5 mg/dL (8.4-10.2); CARBON DIOXIDE 24 mmol/L (22-30); CHLORIDE 102 mmol/L (98-107); CREATININE RESULT 0.69 mg/dL (0.52-1.25); GLUCOSE 160 mg/dL (75-110); POTASSIUM 4.4 mmol/L (3.6-5.0); SODIUM 140.5 mmol/L (137-145); TOTAL PROTEIN 6.7 g/dL (6.3-8.2)
[2017-03-13] MEDS: ENOXAPARIN SODIUM INJ 40 MG/0.4 ML DISP.SYRIN SUBCUT SCH (09:20)
[2017-03-13] MEDS: GABAPENTIN 300 MG CAPSULE PO SCH (09:21)
[2017-03-13] MEDS: SERTRALINE HCL 50 MG TABLET PO SCH (09:21)
[2017-03-13] MEDS: GUAIFENESIN 600 MG TABLET.SA PO SCH (09:21)
[2017-03-13] MEDS: LEVOFLOXACIN 250 MG TABLET PO SCH (09:21)
--- NOTE | 2017-03-13 12:50 | PDOC DISCHARGE SUMMARY ---
General - Admit/Disc Date/PCP Admission Date/Primary Care Provider: 03/09/17 05:10 FELIPA COFFEY, Discharge Date: 03/13/17 - Discharge Diagnosis (1) Acute exacerbation of chronic obstructive pulmonary disease (COPD) Is this a current diagnosis for this admission?: Yes (2) Bipolar disorder Is this a current diagnosis for this admission?: Yes (3) Tobacco abuse Is this a current diagnosis for this admission?: Yes - Additional Information Resuscitation Status: Full Code Discharge Diet: Regular Discharge Activity: Activity As Tolerated Prescriptions: Albuterol Sulfate [Ventolin Hfa] 1 - 2 puff IH Q4 PRN #1 hfa.aer.ad PRN Reason: Levofloxacin [Levaquin 250 mg Tablet] 250 mg PO DAILY #10 tablet Prednisone 20 mg PO DAILY #20 tablet Umeclidinium Brm/Vilanterol Tr [Anoro Ellipta 62.5-25 Mcg INH] 1 each IH DAILY # 3 blst.w.dev Home Medications: Albuterol Sulfate [Proair HFA] 2 puff IH Q4HP PRN 09/12/16 Aripiprazole [Abilify] 20 mg PO QHS 09/12/16 Esomeprazole Mag Trihydrate [Nexium] 40 mg PO DAILY 09/12/16 Fluticasone/Salmeterol [Advair 250-50 Diskus 28 dose] 1 inh IH Q12 09/12/16 Gabapentin [Neurontin 300 mg Capsule] 300 mg PO Q12 09/12/16 Metformin HCl [Glucophage] 500 mg PO WBRKFST 09/12/16 Sertraline HCl [Zoloft] 150 mg PO DAILY 09/12/16 Aspirin [Aspirin EC] 81 mg PO DAILY 03/09/17 Carbidopa/Levodopa [Sinemet 25-100 mg Tablet] 1 tab PO QHS 03/09/17 Montelukast Sodium [Singulair 10 mg Tablet] 10 mg PO QHS 03/09/17 Trazodone HCl [Desyrel] 225 mg PO QHS 03/09/17 Albuterol Sulfate [Ventolin Hfa] 1 - 2 puff IH Q4 PRN #1 hfa.aer.ad 03/13/17 Levofloxacin [Levaquin 250 mg Tablet] 250 mg PO DAILY #10 tablet 03/13/17 Prednisone 20 mg PO DAILY #20 tablet 03/13/17 Umeclidinium Brm/Vilanterol Tr [Anoro Ellipta 62.5-25 Mcg INH] 1 each IH DAILY # 3 blst.w.dev 03/13/17 History of Present Illness History of Present Illness: DUARTE TAN is a 62 year old female, she presented with respiratory distress due to acute COPD exacerbation Hospital Course Hospital Course: She was admitted for the management of COPD acute exacerbation, she was treated with IV Solu-Medrol, bronchodilators, IV antibiotic. Patient improved on this regimen she was advised of the need for complete smoking cessation. She still have some baseline wheezing but she could be discharged home and continue outpatient care with p.o. steroids, bronchodilators and antibiotic. Physical Exam Vital Signs: Temp Pulse Resp BP Pulse Ox 98.1 F 71 18 132/70 H 95 03/13/17 07:28 03/13/17 11:12 03/13/17 11:12 03/13/17 07:28 03/13/17 11:12 Intake & Output 03/12/17 03/13/17 03/14/17 06:59 06:59 06:59 Intake Total 1912 2171 Balance 1912 2171 Weight 63.5 kg 63.2 kg General appearance: PRESENT: no acute distress, well-developed, well-nourished Head exam: PRESENT: atraumatic, normocephalic Eye exam: PRESENT: conjunctiva pink, EOMI, PERRLA Ear exam: PRESENT: normal external ear exam Mouth exam: PRESENT: moist, tongue midline Neck exam: PRESENT: full ROM Respiratory exam: PRESENT: wheezes Cardiovascular exam: PRESENT: RRR, +S1, +S2 Vascular exam: PRESENT: normal capillary refill GI/Abdominal exam: PRESENT: normal bowel sounds, soft Rectal exam: PRESENT: deferred Neurological exam: PRESENT: alert, awake, oriented to person, oriented to place , oriented to time, oriented to situation, CN II-XII grossly intact Psychiatric exam: PRESENT: appropriate affect, normal mood Skin exam: PRESENT: dry, intact, warm Results Laboratory Results: 03/13/17 04:17 03/13/17 04:17 03/13/17 03/13/17 04:17 04:17 WBC 13.1 H RBC 4.72 Hgb 14.3 Hct 41.3 MCV 88 MCH 30.4 MCHC 34.7 RDW 14.2 H Plt Count 203 Sodium 140.5 Potassium 4.4 Chloride 102 Carbon Dioxide 24 Anion Gap 15 BUN 22 H Creatinine 0.69 Est GFR ( Amer) > 60 Est GFR (Non-Af Amer) > 60 Glucose 160 H Calcium 9.5 Total Bilirubin 0.3 AST 18 ALT 23 Alkaline Phosphatase 55 Total Protein 6.7 Albumin 4.1 Impressions: Chest X-Ray 03/09/17 02:20 IMPRESSION: 1. No acute pulmonary process identified.
[2017-03-13] MEDS: INSULIN LISPRO 100 UNIT/ML 3 ML VIAL SUBCUT PRN (12:54)
[2017-03-13 13:32] VITALS: BP 108/49
== END 2017-03-13 14:04 | disposition home or self-care (01) | DRG 192 ==
LOC: ER 02:11 → EH 05:10 → ICU 06:44 → 3N 21:08
PROVIDERS: ADMIT Internal Medicine; ATTEND Internal Medicine
PROC: 3E0F73Z Introduction of Anti-inflammatory into Respiratory Tract, Via Natural or Artificial Opening (ICD-10-PCS; principal; 2017-03-09)
DX: J44.1 Chronic obstructive pulmonary disease with (acute) exacerbation (principal); F31.9 Bipolar disorder, unspecified; F17.210 Nicotine dependence, cigarettes, uncomplicated; M19.90 Unspecified osteoarthritis, unspecified site; D64.9 Anemia, unspecified; K21.9 Gastro-esophageal reflux disease without esophagitis; I10 Essential (primary) hypertension; E78.00 Pure hypercholesterolemia, unspecified; Z60.2 Problems related to living alone; Z79.82 Long term (current) use of aspirin; Z79.899 Other long term (current) drug therapy; Z88.6 Allergy status to analgesic agent; Z82.49 Family history of ischemic heart disease and other diseases of the circulatory system; Z83.6 Family history of other diseases of the respiratory system
CPT/HCPCS: 36415; 71010; 80048; 80053; 81001; 82550; 82553; 82803; 82962; 84484; 85025; 85027; 87040; 87070; 87205; 93005; 93010; 94640; 96374; 99285; J0696; J1650; J1815; J2930; J3490; J7620

== ENCOUNTER → 2017-09-17 | Outpatient (CLI) | payer MEDICAID ==
--- NOTE | 2017-09-18 13:29 | WOMENS IMAGING REPORT ---
EXAM DESCRIPTION: BILAT SCREENING MAMMO W/CAD COMPLETED DATE/TIME: 09/17/2017 11:33 am REASON FOR STUDY: ROUTINE SCREENING;Z12.31 Z12.31 ENCNTR SCREEN MAMMOGRAM FOR MALIGNANT NEOPLASM OF NANO COMPARISON: 05/03/2016 TECHNIQUE: Standard craniocaudal and mediolateral oblique views of each breast recorded using [place] l acquisition. LIMITATIONS: None. FINDINGS: Findings present which are benign by mammographic criteria. No suspicious masses, calcifi cations or architectural distortion. Pertinent benign findings: Small stable benign-appearing nodule on the right. Read with the assistance of CAD. .[facility] - R2 Cenova Version 1.3 .[facility] Imaging - R2 Cenova Version 1.3 .[facility] Imaging - R2 Cenova Version 2.4 .[facility] [place] - R2 Cenova Version 2.4 .[facility] - R2 Linen Tech Version 9.2 Benign mammographic findings may include one or more of the following: Smooth masses, popcorn/rim/co arse calcifications, asymmetries, post-procedure changes, and lesions with long-standing stability. IMPRESSION: BENIGN MAMMOGRAPHIC FINDINGS. BIRADS 2 BREAST DENSITY: b. There are scattered areas of fibroglandular density. BIRAD: 2 BENIGN FINDING(S) RECOMMENDATION: ROUTINE SCREENING COMMENT: The patient has been notified of the results by letter per SA requirements. Additional no tification policies are in place for contacting patient with suspicious or incomplete findings. Quality ID #[id number]: The [employer] recommends an annual screening mammogram for women aged 40 years or over. This facility utilizes a reminder system to ensure that all patients receive reminder letters, and/or direct phone calls for appointments. This includes reminders for routine scr eening mammograms, diagnostic mammograms, or other Breast Imaging Interventions when appropriate. Th is patient will be placed in the appropriate reminder system. The [employer] ([employer]) has developed recommendations for screening MRI of the breast s in certain patient populations, to be used in conjunction with mammography. Breast MRI surveillanc e may be appropriate for women with more than 20% lifetime risk of developing breast cancer as deter mined by genetic testing, significant family history of the disease, or history of mantle radiation f or Hodgkins Disease. ACR Practice Guidelines 2008. TECHNICAL DOCUMENTATION: FINDING NUMBER: (1) ASSESSMENT: (1) JOB ID: [id number] [employer]- All Rights Reserved Reading location - IP/workstation name: [email or web address]
== END ==
LOC: WI 11:21
PROVIDERS: ATTEND Family Medicine
DX: Z12.31 Encounter for screening mammogram for malignant neoplasm of breast (principal)
CPT/HCPCS: 77067

== ENCOUNTER 2017-12-11 01:11 | Emergency (ER) | payer MEDICAID ==
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
[2017-12-11] MEDS ORDERED: IPRATROPIUM/ALBUTEROL 0.5-2.5 MG/3 ML AMPUL NEB ONE (04:00)
[2017-12-11] MEDS ORDERED: METHYLPREDNISOLONE INJ 125 MG/2 ML SDV IV ONE (04:01)
[2017-12-11 04:56] LABS: ABSOLUTE BASOPHILS # (AUTO) 0.1 10^3/uL (0.0-0.2); ABSOLUTE EOSINOPHILS # (AUTO) 0.2 10^3/uL (0.0-0.6); ABSOLUTE LYMPHOCYTES (AUTO) 3.1 10^3/uL (0.5-4.7); ABSOLUTE MONOCYTES (AUTO) 0.8 10^3/uL (0.1-1.4); ABSOLUTE NEUT (AUTO) 4.4 10^3/uL (1.7-8.2); BASOPHILS % (AUTO) 0.7 % (0-2); EOSINOPHILS % (AUTO) 2.6 % (0-6); HEMATOCRIT 46.7 % (36.0-47.0); HEMOGLOBIN 16.3 g/dL (12.0-15.5); LYMPHOCYTES % (AUTO) 36.3 % (13-45); MEAN CORPUSCULAR HEMOGLOBIN 29.9 pg (27.0-33.4); MEAN CORPUSCULAR HGB CONC 34.9 g/dL (32.0-36.0); MEAN CORPUSCULAR VOLUME 86 fl (80-97); MONOCYTES % (AUTO) 9.4 % (3-13); PLATELET COUNT 232 10^3/uL (150-450); RED BLOOD COUNT 5.44 10^6/uL (3.72-5.28); RED CELL DISTRIBUTION WIDTH 13.3 % (11.5-14.0); TOTAL CELLS COUNTED % (AUTO) 100 %; WHITE BLOOD COUNT 8.7 10^3/uL (4.0-10.5)
[2017-12-11 05:19] LABS: ANION GAP 10 (5-19); BLOOD UREA NITROGEN 15 mg/dL (7-20); CALCIUM 9.8 mg/dL (8.4-10.2); CARBON DIOXIDE 24 mmol/L (22-30); CHLORIDE 106 mmol/L (98-107); GLUCOSE 105 mg/dL (75-110); POTASSIUM 4.4 mmol/L (3.6-5.0); SODIUM 140.2 mmol/L (137-145)
[2017-12-11 05:34] LABS: NT PRO BNP 55 pg/mL (5-900); TROPONIN I < 0.012 ng/mL
[2017-12-11] MEDS ORDERED: DIPHENHYDRAMINE HCL 25 MG CAPSULE PO ONE (05:44)
--- NOTE | 2017-12-11 07:06 | RADIOLOGY REPORT (SQ) ---
EXAM DESCRIPTION: X-ray single view chest CLINICAL HISTORY: 62 years Female, Dyspnea COMPARISON: Prior chest x-ray performed on 03/09/2017. TECHNIQUE: Single portable view of the chest performed on 12/11/2017 at 4:59 AM FINDINGS: The lungs are well expanded and are clear. There is no evidence of a pneumothorax. The cardiac silhouette is normal in size and configuration. The mediastinal contours are normal. No acute osseous abnormality is identified. No focal soft tissue abnormalities are seen. IMPRESSION: No evidence of acute intrathoracic disease.
[2017-12-11 08:22] LABS: ARTERIAL BLOOD BASE EXCESS -2.5 mmol/L; ARTERIAL BLOOD FIO2 2L; ARTERIAL BLOOD H2CO3 1.18 mmol/L (1.05-1.35); ARTERIAL BLOOD HCO3 22.4 mmol/L (20-24); ARTERIAL BLOOD O2 SATURATION 88.5 % (94-98); ARTERIAL BLOOD PCO2 39.2 mmHg (35-45); ARTERIAL BLOOD PH 7.37 (7.35-7.45); ARTERIAL BLOOD PO2 55.9 mmHg (80-100); ARTERIAL BLOOD TOTAL CO2 23.6 mmol/L (21-25)
[2017-12-11 09:15] VITALS: BP 116/65
--- NOTE | 2017-12-11 11:42 | EKG REPORT ---
SEVERITY:- NORMAL ECG - SINUS RHYTHM : Confirmed by: Ewa Tiwari MD 11-Dec-2017 11:42:29
== END 2017-12-11 09:15 | disposition home or self-care (01) ==
LOC: ER 01:11
DX: J44.1 Chronic obstructive pulmonary disease with (acute) exacerbation (principal); J20.9 Acute bronchitis, unspecified; Z72.0 Tobacco use; Z99.81 Dependence on supplemental oxygen
CPT/HCPCS: 93005; 94640; 99285; 96374; 36415; 82803; 85025; 80048; 84484; 85379; 83880; 71045; 93010; J3490; J2930; J7620

== ENCOUNTER 2018-07-01 19:51 | Emergency (ER) | payer MEDICAID ==
[2018-07-01] MEDS ORDERED: IPRATROPIUM/ALBUTEROL 0.5-2.5 MG/3 ML AMPUL NEB ONE (19:53)
--- NOTE | 2018-07-01 20:06 | ER Document Report ---
ED Respiratory Problem - General Chief Complaint: Breathing Difficulty Stated Complaint: TROUBLE BREATHING Time Seen by Provider: 07/01/18 20:06 Primary Care Provider: FELIPA COFFEY DO [Primary Care Provider] - Follow up as needed Mode of Arrival: Medic Information source: Patient, Emergency Med Personnel Notes: HISTORY OF PRESENT ILLNESS: Patient is a 63-year-old female with a past medical history of COPD who wears oxygen at night who presents with several days of increasing cough and congestion with difficulty breathing that worsened today. Prior to arrival, the patient was given IV Solu-Medrol as well as albuterol nebulizer treatments with minimal improvement. Location: Chest Onset: Gradual 3-4 days ago Alleviation: None Provocation: "The weather" Quality: Tightness, congestion Radiation: None Severity: Moderate to severe Timing: Constant History of CAD: Yes Associated symptoms: No fevers or chills, no chest pain, no swelling of the extremities REVIEW OF SYSTEMS: CONSTITUTIONAL : Denies fever or chills, no sweats. Denies recent illness. EENT: Denies eye, ear, throat, or mouth pain or symptoms. Denies nasal or sinus congestion. CARDIOVASCULAR: Denies chest pain. Denies swelling of the legs. RESPIRATORY: Positive for cough and congestion. Positive for difficulty breathing and wheezing. GASTROINTESTINAL: Denies abdominal pain. Denies nausea, vomiting, or diarrhea. Denies constipation. GENITOURINARY: Denies difficulty urinating, painful urination, burning, frequency, or blood in urine. FEMALE GENITOURINARY: Denies vaginal bleeding, abnormal or irregular periods. MUSCULOSKELETAL: Denies neck or back pain or joint pain or swelling. SKIN: Denies rash or skin lesions. HEMATOLOGIC : Denies easy bruising or bleeding. LYMPHATIC: Denies swollen, enlarged glands. NEUROLOGICAL: Denies altered mental status or loss of consciousness. Denies headache. Denies weakness or paralysis or loss of use of either side. Denies p roblems with gait or speech. Denies sensory or motor loss. PSYCHIATRIC: Denies anxiety or stress or depression. All other systems reviewed and negative. PHYSICAL EXAMINATION: GENERAL: Weak-appearing, well-nourished and in moderate acute distress. HEAD: Atraumatic, normocephalic. No scalp deformity, depression, or crepitance. EYES: Pupils are 2mm and equal/round/reactive to light, extraocular movements intact, sclera anicteric, conjunctiva are normal. ENT: Nares patent bilaterally, oropharynx. Moist mucous membranes. No tonsil hypertrophy. NECK: Normal range of motion, supple without lymphadenopathy. LUNGS: Breath sounds diminished bilaterally with moderate expiratory wheezes and mild rhonchi. No crackles or rales. HEART: Increased rate, normal rhythm without murmurs, rubs, or gallops. 2+ peripheral pulses. Normal capillary refill. ABDOMEN: Soft, nontender, nondistended. Normoactive bowel sounds. No guarding, no rebound. No masses appreciated. BACK: Normal contour, no midline tenderness. Rectal exam deferred. GENITAL/PELVIC: Deferred. EXTREMITIES: Normal range of motion, trace edema. No cyanosis. NEUROLOGICAL: No focal neurological deficits. Moves all extremities spont aneously and on command. PSYCH: Normal mood, normal affect. No suicidal thoughts/ideations. No adonis icidal thoughts/ideations. No hallucinations. SKIN: Warm, dry, normal turgor, no rashes or lesions noted. ASSESSMENT AND PLAN: This patient is a 63-year-old female who presents with difficulty breathing that could represent COPD exacerbation versus pneumonia versus acute bronchitis versus acute TN versus heart failure. 1. Will obtain labs, urine, cardiac enzymes, BNP, chest x-ray, EKG, and reassess after DuoNeb nebulizer treatments. 2. Will perform trial of BiPAP to assess for improvement. 3. Will likely admit the patient. TRAVEL OUTSIDE OF THE [place] IN LAST 30 DAYS: No - Related Data Allergies/Adverse Reactions: codeine [Codeine] Allergy (Severe, Verified 11/19/16 08:49) Asthma aspirin [Aspirin] Adverse Reaction (Mild, Verified 11/19/16 08:49) Nausea Past Medical History - General Information source: Patient, Emergency Med Personnel - Social History Smoking Status: Current Every Day Smoker Chew tobacco use (# tins/day): No Frequency of alcohol use: None Drug Abuse: None Lives with: Alone Family History: Reviewed & Not Pertinent, COPD, Hypertension Patient has suicidal ideation: No Patient has homicidal ideation: No - Past Medical History Cardiac Medical History: Reports: Hx Hypercholesterolemia Denies: Hx Coronary Artery Disease, Hx Heart Attack, Hx Hypertension Pulmonary Medical History: Reports: Hx Asthma, Hx Bronchitis, Hx COPD, Hx Pneumonia EENT Medical History: Reports: None Neurological Medical History: Reports: None. Denies: Hx Cerebrovascular Accident, Hx Seizures Endocrine Medical History: Reports: None Renal/ Medical History: Reports: None. Denies: Hx Peritoneal Dialysis Malignancy Medical History: Reports: None GI Medical History: Reports: None Musculoskeletal Medical History: Reports Hx Arthritis, Reports Hx Musculoskeletal Deformity Skin Medical History: Reports None Psychiatric Medical History: Reports: Hx Bipolar Disorder, Hx Depression, Hx Schizophrenia Traumatic Medical History: Reports: None Infectious Medical History: Reports: None Past Surgical History: Reports: Hx Gynecologic Surgery - uterine scraping, Hx Tubal Ligation - Immunizations Immunizations up to date: Yes Hx Diphtheria, Pertussis, Tetanus Vaccination: Yes - UTD Hx Pneumococcal Vaccination: 11/09/16 Physical Exam - Vital signs Vitals: Pulse Resp BP Pulse Ox 88 24 H 117/65 88 L 07/01/18 19:51 07/01/18 19:51 07/01/18 19:51 07/01/18 19:51 Course - Re-evaluation Re-evalutation: 07/01/18 22:19 Chest x-ray is negative for acute heart failure or pneumonia. Lab work, including cardiac enzymes, are also unremarkable. Most likely represents COPD exacerbation with possible acute bronchitis. Patient was given IV azithromycin and will be admitted to the hospital. 07/02/18 01:31 Patient was tried off of BiPAP but was unable to tolerate this so was put back on. She will be seen by the admitting physician. - Vital Signs Vital signs: Temp Pulse Resp BP Pulse Ox 88 22 H 103/87 H 92 07/01/18 20:11 07/01/18 22:01 07/01/18 22:01 07/01/18 22:01 - Laboratory Result Diagrams: 07/01/18 20:25 07/01/18 20:25 Laboratory results interpreted by me: 07/01/18 07/01/18 07/02/18 20:25 21:03 00:07 ABG pO2 59.7 L ABG O2 Saturation 90.9 L Glucose 144 H Creatine Kinase 233 H Urine Blood SMALL H Ur Leukocyte Esterase LARGE H - Diagnostic Test Radiology reviewed: Image reviewed, Reports reviewed - EKG Interpretation by Me EKG shows normal: Sinus rhythm Rate: Normal Rhythm: NSR [place]/QRS: No: Right axis deviation, Left axis deviation, RBBB, LBBB, IVCD, LAHB/LAFB, LPHB/LPFB, Bifasicular block Voltage: No: Increased voltage, Consistant with LVH, Decreased voltage, Throughout, Limb leads P Waves: No: ERASTO, LAE, Absent, AV Dissociation, Other Heart block present: No: 1st Degree, Mobitz 1, Mobitz 2, CHB (3rd degree block) When compared to previous EKG there are: No significant change - Consults Dr. Morris Time consulted: 01:30 - will see in ER before deciding on admission Consulted provider: will come to ER Discharge - Discharge Clinical Impression: COPD exacerbation, Dyspnea on exertion, Cough Condition: Stable Disposition: ADMITTED INPATIENT Admitting Provider: Arturo (Hospitalist) Unit Admitted: Telemetry Referrals: FELIPA COFFEY DO [Primary Care Provider] - Follow up as needed
--- NOTE | 2018-07-01 20:34 | RADIOLOGY REPORT (SQ) ---
EXAM DESCRIPTION: [facility]: XR CHEST 1 VIEW CLINICAL HISTORY: 63 years Female, difficulty breathing COMPARISON: 12/11/2017 FINDINGS: Lungs are clear, with no focal infiltrate, pneumothorax, or pleural effusion. Mediastinum is within normal limits for this positioning. Bony structures are unremarkable. IMPRESSION: No acute pulmonary findings.
[2018-07-01 20:41] LABS: ABSOLUTE EOSINOPHILS # (AUTO) 0.2 10^3/uL (0.0-0.6); ABSOLUTE LYMPHOCYTES (AUTO) 1.4 10^3/uL (0.5-4.7); ABSOLUTE MONOCYTES (AUTO) 0.6 10^3/uL (0.1-1.4); ABSOLUTE NEUT (AUTO) 7.3 10^3/uL (1.7-8.2); BASOPHILS % (AUTO) 0.3 % (0-2); EOSINOPHILS % (AUTO) 2.1 % (0-6); HEMATOCRIT 43.1 % (36.0-47.0); HEMOGLOBIN 15.1 g/dL (12.0-15.5); LYMPHOCYTES % (AUTO) 14.3 % (13-45); MEAN CORPUSCULAR HGB CONC 35.1 g/dL (32.0-36.0); MEAN CORPUSCULAR VOLUME 85 fl (80-97); MONOCYTES % (AUTO) 6.7 % (3-13); PLATELET COUNT 214 10^3/uL (150-450); RED BLOOD COUNT 5.05 10^6/uL (3.72-5.28); RED CELL DISTRIBUTION WIDTH 13.5 % (11.5-14.0); SEGMENTED NEUTROPHILS % (AUTO) 76.6 % (42-78); TOTAL CELLS COUNTED % (AUTO) 100 %; WHITE BLOOD COUNT 9.5 10^3/uL (4.0-10.5)
[2018-07-01 21:00] LABS: ALANINE AMINOTRANSFERASE 20 U/L (9-52); ALBUMIN 4.3 g/dL (3.5-5.0); ALKALINE PHOSPHATASE 65 U/L (38-126); ANION GAP 10 (5-19); ASPARTATE AMINO TRANSFERASE 22 U/L (14-36); BILIRUBIN,DIRECT 0.3 mg/dL (0.0-0.4); BILIRUBIN,TOTAL 0.4 mg/dL (0.2-1.3); BLOOD UREA NITROGEN 17 mg/dL (7-20); CALCIUM 9.6 mg/dL (8.4-10.2); CARBON DIOXIDE 23 mmol/L (22-30); CHLORIDE 105 mmol/L (98-107); CREATINE KINASE 233 U/L (30-135); GLUCOSE 144 mg/dL (75-110); POTASSIUM 3.9 mmol/L (3.6-5.0); SODIUM 138.1 mmol/L (137-145); TOTAL PROTEIN 7.6 g/dL (6.3-8.2)
[2018-07-01 21:16] LABS: CREATINE KINASE MB 1.14 ng/mL (<4.55); NT PRO BNP 45 pg/mL (5-900); TROPONIN I < 0.012 ng/mL
[2018-07-01 21:21] LABS: APPEARANCE,URINE SLIGHTLY-CLOUDY; BILIRUBIN,URINE NEGATIVE (NEGATIVE); COLOR,URINE YELLOW; GLUCOSE, URINE NEGATIVE (NEGATIVE); KETONES,URINE NEGATIVE (NEGATIVE); LEUKOCYTE ESTERASE,URINE LARGE (NEGATIVE); NITRITE,URINE NEGATIVE (NEGATIVE); PROTEIN,URINE NEGATIVE (NEGATIVE); URINE SPECIFIC GRAVITY 1.023; UROBILINOGEN,URINE NEGATIVE mg/dL (<2.0)
[2018-07-01] MEDS: ALBUTEROL SULFATE 0.083% NEB 2.5 MG/3 ML AMPUL NEB SCH (22:00)
[2018-07-01] MEDS ORDERED: CEFTRIAXONE 1 GM/D5W RTU 1 GM/50 ML RTUPB IV ONE (22:30)
[2018-07-01] MEDS ORDERED: AZITHROMYCIN INJ 500 MG VIAL IV ONE (23:45)
--- NOTE | 2018-07-01 23:56 | EKG REPORT ---
SEVERITY:- BORDERLINE ECG - SINUS RHYTHM BORDERLINE T WAVE ABNORMALITIES : Confirmed by: Maggie Taylor 01-Jul-2018 23:55:45
[2018-07-02 00:34] LABS: ARTERIAL BLOOD BASE EXCESS -1.4 mmol/L; ARTERIAL BLOOD H2CO3 1.16 mmol/L (1.05-1.35); ARTERIAL BLOOD HCO3 23.2 mmol/L (20-24); ARTERIAL BLOOD O2 SATURATION 90.9 % (94-98); ARTERIAL BLOOD PCO2 38.7 mmHg (35-45); ARTERIAL BLOOD PO2 59.7 mmHg (80-100); ARTERIAL BLOOD TOTAL CO2 24.4 mmol/L (21-25)
[2018-07-02 00:35] LABS: ARTERIAL BLOOD FIO2 2L
[2018-07-02] MEDS: ALBUTEROL SULFATE 0.083% NEB 2.5 MG/3 ML AMPUL NEB SCH (00:41)
[2018-07-02] MEDS ORDERED: ALBUTEROL SULFATE 0.083% NEB 2.5 MG/3 ML AMPUL NEB ONE (01:17)
--- NOTE | 2018-07-02 02:01 | H&P/Discharge Summary ---
Discharge Summary Admission Date/PCP: FELIPA RIVER DO Discharge Date: 07/02/18 Resuscitation Status: Full Code - Discharge Diagnosis (1) Sinusitis Is this a current diagnosis for this admission?: Yes (2) COPD exacerbation Is this a current diagnosis for this admission?: Yes Home Medications: Albuterol Sulfate [Proair HFA] 2 puff IH Q4HP PRN 09/12/16 Aripiprazole [Abilify] 20 mg PO QHS 09/12/16 Esomeprazole Mag Trihydrate [Nexium] 40 mg PO DAILY 09/12/16 Fluticasone/Salmeterol [Advair 250-50 Diskus 28 dose] 1 inh IH Q12 09/12/16 Gabapentin [Neurontin 300 mg Capsule] 300 mg PO Q12 09/12/16 Metformin HCl [Glucophage] 500 mg PO [id number] 09/12/16 Sertraline HCl [Zoloft] 150 mg PO DAILY 09/12/16 Aspirin [Aspirin EC] 81 mg PO DAILY 03/09/17 Carbidopa/Levodopa [Sinemet 25-100 mg Tablet] 1 tab PO QHS 03/09/17 Montelukast Sodium [Singulair 10 mg Tablet] 10 mg PO QHS 03/09/17 Trazodone HCl [Desyrel] 225 mg PO QHS 03/09/17 Allergies/Adverse Reactions: codeine [Codeine] Allergy (Severe, Verified 11/19/16 08:49) Asthma aspirin [Aspirin] Adverse Reaction (Mild, Verified 11/19/16 08:49) Nausea Discharge Diet: As Tolerated Discharge Activity: Activity As Tolerated History of Present Illness Admission Date/PCP: FELIPA RIVER DO History of Present Illness: DUARTE TAN is a 63 year old female with a past medical history of oxygen dependent COPD, depression and ongoing tobacco dependence. Presents with 3 days of sinus congestion, itchy eyes rhinorrhea and shortness of breath with a nonproductive cough. In the emergency room she is found to be short of breath and placed on BiPAP receiving empiric antibiotics with albuterol and Atrovent. Following this treatment hospitalist was consulted. Patient is ambulating on room air, standing and speaking in full sentences without cough. Respiration rate of 16 oxygen saturation 93%. Patient is able to perform incentive spirometry and states she has been rationing her home medications as she has run out. She has a follow-up appointment with Dr. River this week. Past Medical History Cardiac Medical History: Reports: Hyperlipidema Denies: Coronary Artery Disease, Myocardial Infarction, Hypertension Pulmonary Medical History: Reports: Asthma, Bronchitis, Chronic Obstructive Pulmonary Disease (COPD), Pneumonia EENT Medical History: Reports: None Neurological Medical History: Reports: None Denies: Seizures Endocrine Medical History: Reports: None Renal/ Medical History: Reports: None Malignancy Medical History: Reports: None GI Medical History: Reports: None Musculoskeltal Medical History: Reports: Arthritis Skin Medical History: Reports: None Psychiatric Medical History: Reports: Bipolar Disorder, Depression Traumatic Medical History: Reports: None Hematology: Reports: Anemia Infectious Medical History: Reports: None Past Surgical History Past Surgical History: Reports: Tubal Ligation Social History Information Source: Patient, [facility] Records Lives with: Alone Smoking Status: Current Every Day Smoker Frequency of Alcohol Use: Occasional Hx Recreational Drug Use: No Drugs: None Hx Prescription Drug Abuse: No - Advance Directive Resuscitation Status: Full Code Family History Family History: COPD, Hypertension Parental Family History Reviewed: Yes Children Family History Reviewed: Yes Sibling(s) Family History Reviewed.: Yes Review of Systems Constitutional: PRESENT: fatigue. ABSENT: chills, fever(s), headache(s), weight gain, weight loss Eyes: ABSENT: visual disturbances Ears: ABSENT: hearing changes Nose, Mouth, and Throat: PRESENT: as per HPI Cardiovascular: ABSENT: chest pain, dyspnea on exertion, edema, orthropnea, palpitations Respiratory: PRESENT: as per HPI, cough. ABSENT: hemoptysis, sputum Gastrointestinal: ABSENT: abdominal pain, constipation, diarrhea, hematemesis, hematochezia, nausea, vomiting Genitourinary: ABSENT: dysuria, hematuria Musculoskeletal: ABSENT: joint swelling Integumentary: ABSENT: rash, wounds Neurological: ABSENT: abnormal gait, abnormal speech, confusion, dizziness, focal weakness, syncope Psychiatric: ABSENT: anxiety, depression, homidical ideation, suicidal ideation Endocrine: ABSENT: cold intolerance, heat intolerance, polydipsia, polyuria Hematologic/Lymphatic: ABSENT: easy bleeding, easy bruising Physical Exam Vital Signs: Temp Pulse Resp BP Pulse Ox 88 22 H 103/87 H 92 07/01/18 20:11 07/01/18 22:01 07/01/18 22:01 07/01/18 22:01 Intake & Output 06/30/18 07/01/18 07/02/18 11:59 11:59 11:59 Intake Total 50 Balance 50 Weight 65.4 kg General appearance: PRESENT: no acute distress, cooperative. ABSENT: disheveled, hard of hearing Head exam: PRESENT: atraumatic, normocephalic Eye exam: PRESENT: conjunctival injection, conjunctiva pink, EOMI, PERRLA. ABSENT: scleral icterus Ear exam: PRESENT: normal external ear exam Mouth exam: PRESENT: moist, tongue midline Teeth exam: PRESENT: dental caries Neck exam: ABSENT: carotid bruit, JVD, lymphadenopathy, thyromegaly Respiratory exam: PRESENT: prolonged expiratory phas, symmetrical. ABSENT: accessory muscle use, chest wall tenderness, clear to auscultation fili, crackles, decreased breath sounds, rales, rhonchi, stridor, tachypnea, wheezes Cardiovascular exam: PRESENT: RRR. ABSENT: diastolic murmur, rubs, systolic murmur Pulses: PRESENT: normal dorsalis pedis pul Vascular exam: PRESENT: normal capillary refill GI/Abdominal exam: PRESENT: normal bowel sounds, soft. ABSENT: distended, guarding, mass, organolmegaly, rebound, tenderness Rectal exam: PRESENT: deferred Extremities exam: PRESENT: full ROM. ABSENT: calf tenderness, clubbing, pedal edema Neurological exam: PRESENT: alert, awake, oriented to person, oriented to place, oriented to time, oriented to situation, CN II-XII grossly intact. ABSENT: motor sensory deficit Psychiatric exam: PRESENT: appropriate affect, normal mood. ABSENT: homicidal ideation, suicidal ideation Skin exam: PRESENT: dry, intact, warm. ABSENT: cyanosis, rash Results Laboratory Results: 07/01/18 20:25 07/01/18 20:25 07/01/18 07/01/18 07/01/18 20:25 20:25 21:03 WBC 9.5 RBC 5.05 Hgb 15.1 Hct 43.1 MCV 85 MCH 30.0 MCHC 35.1 RDW 13.5 Plt Count 214 Seg Neutrophils % 76.6 Lymphocytes % 14.3 Monocytes % 6.7 Eosinophils % 2.1 Basophils % 0.3 Absolute Neutrophils 7.3 Absolute Lymphocytes 1.4 Absolute Monocytes 0.6 Absolute Eosinophils 0.2 Absolute Basophils 0.0 Carbonic Acid HCO3/H2CO3 Ratio ABG pH ABG pCO2 ABG pO2 ABG HCO3 ABG O2 Saturation ABG Base Excess FiO2 Sodium 138.1 Potassium 3.9 Chloride 105 Carbon Dioxide 23 Anion Gap 10 BUN 17 Creatinine 0.84 Est GFR ( Amer) > 60 Est GFR (Non-Af Amer) > 60 Glucose 144 H Calcium 9.6 Total Bilirubin 0.4 AST 22 ALT 20 Alkaline Phosphatase 65 Total Protein 7.6 Albumin 4.3 Urine Color YELLOW Urine Appearance SLIGHTLY-CLOUDY Urine pH 5.0 Ur Specific [place] 1.023 Urine Protein NEGATIVE Urine Glucose (UA) NEGATIVE Urine Ketones NEGATIVE Urine Blood SMALL H Urine Nitrite NEGATIVE Ur Leukocyte Esterase LARGE H Urine WBC (Auto) 15 Urine RBC (Auto) 14 07/02/18 00:07 WBC RBC Hgb Hct MCV MCH MCHC RDW Plt Count Seg Neutrophils % Lymphocytes % Monocytes % Eosinophils % Basophils % Absolute Neutrophils Absolute Lymphocytes Absolute Monocytes Absolute Eosinophils Absolute Basophils Carbonic Acid 1.16 HCO3/H2CO3 Ratio 20:1 ABG pH 7.40 ABG pCO2 38.7 ABG pO2 59.7 L ABG HCO3 23.2 ABG O2 Saturation 90.9 L ABG Base Excess -1.4 FiO2 2L Sodium Potassium Chloride Carbon Dioxide Anion Gap BUN Creatinine Est GFR ( Amer) Est GFR (Non-Af Amer) Glucose Calcium Total Bilirubin AST ALT Alkaline Phosphatase Total Protein Albumin Urine Color Urine Appearance Urine pH Ur Specific [place] Urine Protein Urine Glucose (UA) Urine Ketones Urine Blood Urine Nitrite Ur Leukocyte Esterase Urine WBC (Auto) Urine RBC (Auto) 07/01/18 07/01/18 20:25 20:25 Creatine Kinase 233 H CK-MB (CK-2) 1.14 Troponin I < 0.012 NT-Pro-B Natriuret Pep 45 Impressions: Chest X-Ray 07/01/18 19:53 IMPRESSION: No acute pulmonary findings. Qualifiers - * PATIENT BEING DISCHARGED WITH ANY OF THE FOLLOWING DIAGNOSIS: No Assessment & Plan - Time Time Spent: 30 to 50 Minutes Smoking Education Provided: Over 3 minutes Medications reviewed and adjusted accordingly: Yes Anticipated dischagre: Home Within: within 24 hours - Plan Summary Plan Summary: Discharge home, activity and diet as tolerated, avoid tobacco, follow-up with Dr. River in 3-5 days, continue outpatient medication regiment in addition to Combivent twice daily, Flonase 2 spray twice daily, azithromycin 250 daily times 5 days, prednisone 10 mg p.o. twice daily times 5 days.
[2018-07-02] MEDS ORDERED: FLUTICASONE NASAL SPRAY 50 MCG/SPRY 120 SPRAY/16 GM NASL ONE (02:20)
[2018-07-02] MEDS ORDERED: IPRATROPIUM/ALBUTEROL 120 PUFF/4 GM MDI IH ONE ×2 (02:20→02:32)
[2018-07-02] MEDS ORDERED: AZITHROMYCIN 250 MG TABLET PO ONE (02:20)
[2018-07-02] MEDS ORDERED: PREDNISONE 20 MG TABLET PO ONE (02:20)
[2018-07-02 02:29] VITALS: BP 122/66
[2018-07-02] MEDS ORDERED: FLUTICASONE NASAL SPRAY 50 MCG/SPRY 120 SPRAY/16 GM ONE (02:31)
--- NOTE | 2018-07-03 10:56 | EKG REPORT ---
SEVERITY:- ABNORMAL ECG - SINUS RHYTHM ABNRM R PROG, CONSIDER ASMI OR LEAD PLACEMENT : Confirmed by: Maggie Taylor 03-Jul-2018 10:55:01
== END 2018-07-02 02:59 | disposition other institution (70) ==
LOC: ER 19:51 → UNDOADMIN 07-02 01:51 → EH 07-02 01:51
DX: J44.1 Chronic obstructive pulmonary disease with (acute) exacerbation (principal); J32.9 Chronic sinusitis, unspecified; F17.200 Nicotine dependence, unspecified, uncomplicated; E78.5 Hyperlipidemia, unspecified; Z88.6 Allergy status to analgesic agent; Z99.81 Dependence on supplemental oxygen; Z98.51 Tubal ligation status
CPT/HCPCS: 93005 ×2; 36600; 94640 ×2; 99285; 96365; 96367; 36415; 87040; 82553; 82803; 82550; 85025; 80053; 81001; 84484; 83880; 71045; 93010 ×2; 94660; J7512; J0456; J0696; J7620

== ENCOUNTER → 2019-05-11 | Outpatient (CLI) | payer MEDICAID ==
--- NOTE | 2019-05-11 17:37 | RADIOLOGY REPORT (SQ) ---
EXAM DESCRIPTION: LUMBAR SPINE COMPLETE COMPLETED DATE/TIME: 05/11/2019 4:57 pm REASON FOR STUDY: LUMBAGO WITH SCIATICA, RIGHT SIDE,PAIN IN THORACIC SPINE M54.41 LUMBAGO WITH SCIA KERRY, RIGHT SIDE M54.6 PAIN IN THORACIC SPINE COMPARISON: None. NUMBER OF VIEWS: Five views including obliques. TECHNIQUE: AP, lateral, oblique, and sacral radiographic images acquired of the lumbar spine. LIMITATIONS: None. FINDINGS: MINERALIZATION: Normal. SEGMENTATION: Normal. No transitional anatomy. ALIGNMENT: Normal. VERTEBRAE: Maintained height. No fracture or worrisome bone lesion. DISCS: Preserved height. No significant osteophytes or end plate irregularity. POSTERIOR ELEMENTS: Hypertrophic facet changes from L4-S1. HARDWARE: None in the spine. PARASPINAL SOFT TISSUES: Normal. PELVIS: Intact as visualized. No fractures or worrisome bone lesions. SI joints intact. OTHER: No other significant finding. IMPRESSION: Mild facet arthropathy. No other significant finding. TECHNICAL DOCUMENTATION: JOB ID: [id number] 2011 [employer]- All Rights Reserved Reading location - IP/workstation name: [email or web address]
--- NOTE | 2019-05-11 17:38 | RADIOLOGY REPORT (SQ) ---
EXAM DESCRIPTION: T SPINE AP/LAT COMPLETED DATE/TIME: 05/11/2019 4:57 pm REASON FOR STUDY: V M54.41 LUMBAGO WITH SCIATICA, RIGHT SIDE M54.6 PAIN IN THORACIC SPINE COMPARISON: None. NUMBER OF VIEWS: Two views. TECHNIQUE: AP and lateral radiographic images acquired of the thoracic spine. LIMITATIONS: None. FINDINGS: MINERALIZATION: Normal. ALIGNMENT: Mild levoscoliosis in the upper thoracic spine. VERTEBRAE: No fracture or bone lesion. Maintained height, normal segmentation. DISCS: No significant loss of height or significant narrowing. No large osteophytes. HARDWARE: None in the spine. MEDIASTINUM AND SOFT TISSUES: Normal heart size and aortic contour. No soft tissue abnormality. VISUALIZED LUNG POLANCO: Clear. OTHER: No other significant finding. IMPRESSION: Mild scoliosis. TECHNICAL DOCUMENTATION: JOB ID: [id number] 2010 [employer]- All Rights Reserved Reading location - IP/workstation name: [email or web address]
== END ==
LOC: OD 16:30
PROVIDERS: ATTEND Family Medicine
DX: M54.41 Lumbago with sciatica, right side (principal); M47.896 Other spondylosis, lumbar region; M54.6 Pain in thoracic spine; M41.84 Other forms of scoliosis, thoracic region
CPT/HCPCS: 72070; 72110

== ENCOUNTER 2019-05-17 12:10 | Emergency (ER) | payer MEDICAID ==
[2019-05-17 12:34] LABS: VENOUS BLOOD BASE EXCESS -0.1 mmol/L; VENOUS BLOOD HCO3 25.6 mmol/L (20-32); VENOUS BLOOD PCO2 45.3 mmHg (35-63); VENOUS BLOOD PH 7.37 (7.30-7.42)
[2019-05-17 12:36] LABS: ABSOLUTE LYMPHOCYTES (AUTO) 0.6 10^3/uL (0.5-4.7); ABSOLUTE MONOCYTES (AUTO) 0.7 10^3/uL (0.1-1.4); ABSOLUTE NEUT (AUTO) 4.1 10^3/uL (1.7-8.2); BASOPHILS % (AUTO) 0.4 % (0-2); HEMATOCRIT 43.9 % (36.0-47.0); HEMOGLOBIN 15.2 g/dL (12.0-15.5); LYMPHOCYTES % (AUTO) 10.8 % (13-45); MEAN CORPUSCULAR HEMOGLOBIN 29.4 pg (27.0-33.4); MEAN CORPUSCULAR HGB CONC 34.7 g/dL (32.0-36.0); MEAN CORPUSCULAR VOLUME 85 fl (80-97); MONOCYTES % (AUTO) 12.6 % (3-13); PLATELET COUNT 150 10^3/uL (150-450); RED BLOOD COUNT 5.18 10^6/uL (3.72-5.28); SEGMENTED NEUTROPHILS % (AUTO) 76.2 % (42-78); TOTAL CELLS COUNTED % (AUTO) 100 %; WHITE BLOOD COUNT 5.4 10^3/uL (4.0-10.5)
[2019-05-17 12:41] LABS: INTERNATIONAL RATION (INR) 1.41; PROTHROMBIN TIME 17.4 SEC (11.4-15.4)
[2019-05-17 12:52] LABS: ALBUMIN 4.4 g/dL (3.5-5.0); ALKALINE PHOSPHATASE 69 U/L (38-126); ANION GAP 11 (5-19); ASPARTATE AMINO TRANSFERASE 22 U/L (14-36); BILIRUBIN,TOTAL 0.6 mg/dL (0.2-1.3); BLOOD UREA NITROGEN 13 mg/dL (7-20); CALCIUM 9.1 mg/dL (8.4-10.2); CARBON DIOXIDE 24 mmol/L (22-30); CHLORIDE 102 mmol/L (98-107); CREATINE KINASE 149 U/L (30-135); GLUCOSE 128 mg/dL (75-110); TOTAL PROTEIN 7.8 g/dL (6.3-8.2)
[2019-05-17 13:04] LABS: CREATINE KINASE MB 0.28 ng/mL (<4.55)
[2019-05-17 13:05] LABS: TROPONIN I < 0.012 ng/mL
--- NOTE | 2019-05-17 13:43 | RADIOLOGY REPORT (SQ) ---
EXAM DESCRIPTION: CHEST 2 VIEWS COMPLETED DATE/TIME: 05/17/2019 12:28 pm REASON FOR STUDY: difficulty breathing COMPARISON: 07/01/2018 EXAM PARAMETERS: NUMBER OF VIEWS: two views TECHNIQUE: Digital Frontal and Lateral radiographic views of the chest acquired. RADIATION DOSE: NA LIMITATIONS: none FINDINGS: LUNGS AND PLEURA: No opacities, masses or pneumothorax. No pleural effusion. MEDIASTINUM AND HILAR STRUCTURES: No masses or contour abnormalities. HEART AND VASCULAR STRUCTURES: Heart normal size. No evidence for failure. BONES: No acute findings. HARDWARE: None in the chest. OTHER: No other significant finding. IMPRESSION: NO ACUTE RADIOGRAPHIC FINDING IN THE CHEST. TECHNICAL DOCUMENTATION: JOB ID: [id number] 2010 [employer]- All Rights Reserved Reading location - IP/workstation name: [email or web address]
[2019-05-17] MEDS ORDERED: DEXAMETHASONE SOD PHOS INJ 10 MG/1 ML VIAL IV ONE (14:02)
--- NOTE | 2019-05-17 14:04 | ER Document Report ---
ED Respiratory Problem - General Chief Complaint: Shortness Of Breath Stated Complaint: BREATHING PROBLEM/NAUSEA Time Seen by Provider: 05/17/19 12:45 Primary Care Provider: FELIPA COFFEY DO [Primary Care Provider] - Follow up as needed Mode of Arrival: Medic Information source: Patient Notes: 64-year-old woman presents to the emergency department with complaint of shortness of breath for the past week her symptoms have worsened. She is on home O2, has used 3 nebulizer treatments this morning and continues to complain of some shortness of breath. She states that her symptoms have improved, however, she is normally on 2 L of oxygen and now requiring 3. She also complains of chronic back pain which is worsened by lying on a stretcher in the emergency department. She is requesting something for pain. She is allergic to codeine and aspirin. TRAVEL OUTSIDE OF THE [place] IN LAST 30 DAYS: No - Related Data Allergies/Adverse Reactions: codeine [Codeine] Allergy (Severe, Verified 11/19/16 08:49) Asthma aspirin [Aspirin] Adverse Reaction (Mild, Verified 11/19/16 08:49) Nausea Past Medical History - Social History Smoking Status: Current Some Day Smoker Family History: COPD, Hypertension Patient has suicidal ideation: No Patient has homicidal ideation: No - Past Medical History Cardiac Medical History: Reports: Hx Hypercholesterolemia Denies: Hx Coronary Artery Disease, Hx Heart Attack, Hx Hypertension Pulmonary Medical History: Reports: Hx Asthma, Hx Bronchitis, Hx COPD, Hx Pneumonia Neurological Medical History: Denies: Hx Cerebrovascular Accident, Hx Seizures Renal/ Medical History: Denies: Hx Peritoneal Dialysis Musculoskeletal Medical History: Reports Hx Arthritis, Reports Hx Musculoske letal Deformity Psychiatric Medical History: Reports: Hx Bipolar Disorder, Hx Depression, Hx Schizophrenia Past Surgical History: Reports: Hx Gynecologic Surgery - uterine scraping, Hx Tubal Ligation - Immunizations Immunizations up to date: Yes Hx Diphtheria, Pertussis, Tetanus Vaccination: Yes - UTD Hx Pneumococcal Vaccination: 11/09/16 Review of Systems - Review of Systems Notes: Constitutional: Negative for fever. HENT: Negative for sore throat. Eyes: Negative for visual changes. Cardiovascular: Negative for chest pain. Respiratory: + Shortness of breath. Gastrointestinal: Negative for abdominal pain, vomiting or diarrhea. Genitourinary: Negative for dysuria. Musculoskeletal: + Back pain. Skin: Negative for rash. Neurological: Negative for headaches, weakness or numbness. 10 point ROS negative except as marked above and in HPI. Physical Exam - Vital signs Vitals: Temp Pulse Resp BP Pulse Ox 99.1 F 84 23 H 110/64 89 L 05/17/19 12:23 05/17/19 12:23 05/17/19 12:23 05/17/19 12:05/17/19 12:23 - Notes Notes: PHYSICAL EXAMINATION: Physical Exam: General: Well-nourished well-developed 64-year-old woman in no acute distress HEENT: NC/AT, pupils equal round and reactive to light, MM moist,nares clear, oropharynx clear, airway patent + nasal cannula in place Neck: supple, no adenopathy, no masses. Good range of motion Lungs: clear, no wheezing, no rales no rhonchi CVS: Regular rate and rhythm no murmur gallop or rub Abdomen: Soft, active, nontender, no masses, no hepatosplenomegaly Back: Tenderness in the lower lumbar region bilateral paraspinous muscle group Ext: No edema, clubbing or cyanosis. Neuro: Alert and responsive, moving all 4 extremities on command, cranial nerves intact, no focal findings Skin: Intact no open lesions, no rash PSYCH: Normal mood, normal affect. Course - Re-evaluation Re-evalutation: 05/17/19 14:02 I review of the patient's evaluation in the emergency department laboratory data, chest x-ray, are normal with a normal troponin. EKG reveals a sinus rhythm with wandering baseline and T wave abnormalities which may be artifactual based on the quality of the EKG. Because of the findings a second troponin will be performed in the emergency department. Patient is given Decadron 10 mg IV in hopes of reducing her back pain. She is also given acetaminophen 650 mg p.o. 05/17/19 16:31 Patient notes that she is feeling much better and will have to call for a ride to get home. I have instructed the nurse to give her access to a telephone so that she might call for a ride. She notes that she has medication for her nebulizer treatments at home, inhaled steroid and rescue inhaler. - Vital Signs Vital signs: Temp Pulse Resp BP Pulse Ox 99.1 F 84 23 H 104/58 L 91 L 05/17/19 12:23 05/17/19 12:23 05/17/19 16:01 05/17/19 16:01 05/17/19 16:01 - Laboratory Result Diagrams: 05/17/19 12:15 05/17/19 12:15 Laboratory results interpreted by me: 05/17/19 05/17/19 05/17/19 12:15 12:15 12:15 Lymph % (Auto) 10.8 L PT 17.4 H Glucose 128 H Creatine Kinase 149 H 05/17/19 16:32 I have reviewed laboratory data and used this information for the treatment decisions regarding the patient. - Diagnostic Test Radiology reviewed: Image reviewed, Reports reviewed - Chest x-ray: No acute infiltrate or effusion. - EKG Interpretation by Me EKG shows normal: Sinus rhythm - Rate of 78, baseline is inconsistent, T wave changes may related to quality of the EKG. No acute ST or T wave abnormalities seen. Discharge - Discharge Clinical Impression: COPD exacerbation, Tobacco abuse Condition: Good Disposition: HOME, SELF-CARE Instructions: Chronic Obstructive Lung Disease ([facility]) Additional Instructions: You were diagnosed with an exacerbation of your chronic lung disease today in the emergency department. Please continue your usual medications at home, please follow-up with your primary care doctor call for an appointment tomorrow. If your symptoms are worsening or if you have other concerns you may return to the emergency department for further evaluation and treatment. Referrals: FELIPA COFFEY DO [Primary Care Provider] - Follow up as needed
--- NOTE | 2019-05-17 15:25 | EKG REPORT ---
SEVERITY:- BORDERLINE ECG - SINUS RHYTHM BORDERLINE R WAVE PROGRESSION, ANTERIOR LEADS BORDERLINE T WAVE ABNORMALITIES : Confirmed by: Magige Taylor 17-May-2019 15:25:03
[2019-05-17 17:48] VITALS: BP 109/54
== END 2019-05-17 17:40 | disposition home or self-care (01) ==
LOC: ER 12:10
DX: J44.1 Chronic obstructive pulmonary disease with (acute) exacerbation (principal); Z99.81 Dependence on supplemental oxygen; Z79.51 Long term (current) use of inhaled steroids; Z79.899 Other long term (current) drug therapy; F17.200 Nicotine dependence, unspecified, uncomplicated; M54.9 Dorsalgia, unspecified; G89.29 Other chronic pain; Z87.01 Personal history of pneumonia (recurrent); Z88.8 Allergy status to other drugs, medicaments and biological substances; Z88.6 Allergy status to analgesic agent; Z88.5 Allergy status to narcotic agent
CPT/HCPCS: 93005; 99285; 96374; 36415; 82553; 82550; 83605; 85025; 85610; 80053; 84484; 82803; 71046; 93010; J1100

== ENCOUNTER 2019-05-17 19:57 | Inpatient (IN) | payer MEDICAID ==
[2019-05-17] MEDS ORDERED: ALBUTEROL SULFATE 0.083% NEB 2.5 MG/3 ML AMPUL NEB ONE (20:07)
[2019-05-17] MEDS ORDERED: RINGERS SOLUTION,LACTATED 1,000 ML IV ONE (20:10)
--- NOTE | 2019-05-17 20:13 | ER Document Report ---
ED General - General Chief Complaint: Breathing Difficulty Stated Complaint: BREATHING DIFFICULTY Time Seen by Provider: 05/17/19 20:07 Primary Care Provider: FELIPA COFFEY DO [Primary Care Provider] - Follow up as needed Notes: 64-year-old female presents emergency department complaining of severe worsening shortness of breath for the past day. Patient says she was seen in the emergency department earlier today and sent home, after few hours at home she felt significantly more short of breath than she had before, states that she took her usual 2 L via nasal cannula and turned it up to 3 L but that did not re lieve her shortness of breath nor did her albuterol breathing treatment so she called 911. On arrival EMS found her to be 80% on 3 L via nasal cannula. On CPAP they were eventually able to get her up to 91 or 92% but only after giving her 10 mg of albuterol breathing treatment, 2 g of magnesium and 125 mg of Solu- Medrol. They state that she was acutely short of breath, only able to speak in 1-2 word sentences and breathing approximately 45 times per minute on arrival. Patient does complain of pain in her chest that radiates to her back that worsens with deep breath and cough. States that it is constant. Patient admits a history of asthma and COPD, quit smoking 2 days ago, denies fevers, denies having ever been intubated. TRAVEL OUTSIDE OF THE [place] IN LAST 30 DAYS: No - Related Data Allergies/Adverse Reactions: codeine [Codeine] Allergy (Severe, Verified 11/19/16 08:49) Asthma aspirin [Aspirin] Adverse Reaction (Mild, Verified 11/19/16 08:49) Nausea Past Medical History - General Information source: Patient - Social History Smoking Status: Former Smoker Chew tobacco use (# tins/day): No Frequency of alcohol use: Social Drug Abuse: None Family History: COPD, Hypertension - Past Medical History Cardiac Medical History: Reports: Hx Hypercholesterolemia Denies: Hx Coronary Artery Disease, Hx Heart Attack, Hx Hypertension Pulmonary Medical History: Reports: Hx Asthma, Hx Bronchitis, Hx COPD, Hx Pneumonia Neurological Medical History: Denies: Hx Cerebrovascular Accident, Hx Seizures Renal/ Medical History: Denies: Hx Peritoneal Dialysis Musculoskeletal Medical History: Reports Hx Arthritis, Reports Hx Musculoskeletal Deformity Psychiatric Medical History: Reports: Hx Bipolar Disorder, Hx Depression, Hx Schizophrenia Past Surgical History: Reports: Hx Gynecologic Surgery - uterine scraping, Hx Tubal Ligation - Immunizations Immunizations up to date: Yes Hx Diphtheria, Pertussis, Tetanus Vaccination: Yes - UTD Hx Pneumococcal Vaccination: 11/09/16 Review of Systems - Review of Systems Constitutional: No symptoms reported. denies: Chills, Diaphoresis, Fever EENT: No symptoms reported Cardiovascular: See HPI Respiratory: See HPI Gastrointestinal: No symptoms reported -: Yes All other systems reviewed and negative Physical Exam - Vital signs Vitals: Resp 26 H 05/17/19 19:59 Interpretation: Hypotensive, Tachypneic. No: Febrile - Notes Notes: GENERAL: Alert, interacts well. Mildly anxious, mildly short of breath on CPAP and BiPAP after transition from EMS. HEAD: Normocephalic, atraumatic EYES: Pupils equal, round and reactive to light, extraocular movements intact. ENT: Oral mucosa moist, tongue midline. NECK: Full range of motion, supple, trachea midline. LUNGS: Mild diffuse expiratory wheezing, tachypneic, mildly short of breath. HEART: Regular rate and rhythm, no murmurs, gallops, rubs. ABDOMEN: Soft, nontender, nondistended, bowel sounds present in all 4 quadrants. EXTREMITIES: Moves all 4 extremities spontaneously, no edema, radial and dorsali s pedis pulses 2/4 bilaterally. No cyanosis. NEUROLOGICAL: Alert and oriented x3, normal speech. PSYCH: Mildly anxious. SKIN: Warm, Dry, normal turgor, no rashes or lesions noted. Course - Re-evaluation Re-evalutation: 05/17/19 23:33 CBC shows slight leukopenia 3.9, platelets slightly low at 149, coags normal, VBG is slightly acidotic with a pH of 7.28, PCO2 normal at 49.7, CMP shows elevated glucose at 167 otherwise unremarkable go home, earlier today patient had 2 troponins that were negative, third troponin now is negative. Chest x-ray shows no acute process. 05/17/19 23:35 Given the fact that the patient was discharged home and returned in acute respiratory distress with significant hypoxemia less than 8 hours later patient has failed outpatient therapy for this acute exacerbation of COPD. Patient will be discussed with Dr. Toledo for admission. 05/17/19 23:42 When being moved from trauma to to bed 19 on 5 L via nasal cannula instead of using BiPAP the patient did desaturate to 88%. 05/18/19 00:41 Dr. Toledo accepted the patient to a medical floor. - Vital Signs Vital signs: Temp Pulse Resp BP Pulse Ox 97.7 F 24 H 110/51 L 91 L 05/17/19 22:33 05/17/19 22:27 05/17/19 22:27 05/17/19 22:27 - Laboratory Result Diagrams: 05/17/19 20:00 05/17/19 21:02 Laboratory results interpreted by me: 05/17/19 05/17/19 05/17/19 20:00 20:00 21:02 WBC 3.9 L Hgb 15.6 H RDW 14.3 H Plt Count 149 L Lymph % (Auto) 12.5 L [place] % (Auto) 2.1 L Seg Neutrophils % 85.1 H VBG pH 7.28 L Glucose 167 H - EKG Interpretation by Me Additional EKG results interpreted by me: 05/17/19 23:34 EKG shows sinus rhythm at a rate of 71, normal axis, normal intervals, no ST segment elevations or depressions, some global T wave flattening is noted per my interpretation. Critical Care Note - Critical Care Note Total time excluding time spent on procedures (mins): 42 Discharge - Discharge Clinical Impression: Acute exacerbation of chronic obstructive pulmonary disease (COPD) Condition: Fair Disposition: ADMITTED INPATIENT Admitting Provider: Tre (Hospitalist) Unit Admitted: Medical Floor Referrals: FELIPA COFFEY DO [Primary Care Provider] - Follow up as needed
[2019-05-17 20:18] LABS: ABSOLUTE LYMPHOCYTES (AUTO) 0.5 10^3/uL (0.5-4.7); ABSOLUTE MONOCYTES (AUTO) 0.1 10^3/uL (0.1-1.4); ABSOLUTE NEUT (AUTO) 3.3 10^3/uL (1.7-8.2); BASOPHILS % (AUTO) 0.2 % (0-2); EOSINOPHILS % (AUTO) 0.1 % (0-6); HEMATOCRIT 44.4 % (36.0-47.0); HEMOGLOBIN 15.6 g/dL (12.0-15.5); LYMPHOCYTES % (AUTO) 12.5 % (13-45); MEAN CORPUSCULAR HEMOGLOBIN 30.2 pg (27.0-33.4); MEAN CORPUSCULAR VOLUME 86 fl (80-97); MONOCYTES % (AUTO) 2.1 % (3-13); PLATELET COUNT 149 10^3/uL (150-450); RED BLOOD COUNT 5.14 10^6/uL (3.72-5.28); RED CELL DISTRIBUTION WIDTH 14.3 % (11.5-14.0); SEGMENTED NEUTROPHILS % (AUTO) 85.1 % (42-78); TOTAL CELLS COUNTED % (AUTO) 100 %; WHITE BLOOD COUNT 3.9 10^3/uL (4.0-10.5)
[2019-05-17 20:20] LABS: VENOUS BLOOD BASE EXCESS -4.4 mmol/L; VENOUS BLOOD HCO3 22.8 mmol/L (20-32); VENOUS BLOOD PCO2 49.7 mmHg (35-63); VENOUS BLOOD PH 7.28 (7.30-7.42)
[2019-05-17 20:23] LABS: PROTHROMBIN TIME 13.2 SEC (11.4-15.4)
--- NOTE | 2019-05-17 20:42 | RADIOLOGY REPORT (SQ) ---
EXAM DESCRIPTION: XR CHEST 1 VIEW COMPLETED DATE/TME: 05/17/2019 20:07 CLINICAL HISTORY: 64 years Female SOB, COPD, hypoxic COMPARISON: 05/17/2019 FINDINGS: The cardiomediastinal silhouette appears unremarkable. No consolidating infiltrates or pleural effusions. No pneumothorax. IMPRESSION: No acute abnormality is identified.
[2019-05-17 21:43] LABS: ALBUMIN 3.7 g/dL (3.5-5.0); ALKALINE PHOSPHATASE 55 U/L (38-126); ANION GAP 12 (5-19); ASPARTATE AMINO TRANSFERASE 24 U/L (14-36); BILIRUBIN,DIRECT 0.3 mg/dL (0.0-0.4); BILIRUBIN,TOTAL 0.5 mg/dL (0.2-1.3); BLOOD UREA NITROGEN 18 mg/dL (7-20); CALCIUM 8.4 mg/dL (8.4-10.2); CARBON DIOXIDE 23 mmol/L (22-30); CHLORIDE 103 mmol/L (98-107); GLUCOSE 167 mg/dL (75-110); POTASSIUM 3.7 mmol/L (3.6-5.0); TOTAL PROTEIN 6.7 g/dL (6.3-8.2)
--- NOTE | 2019-05-17 23:11 | EKG REPORT ---
SEVERITY:- BORDERLINE ECG - SINUS RHYTHM BORDERLINE T WAVE ABNORMALITIES : Confirmed by: Maggie Taylor 17-May-2019 23:11:00
[2019-05-18] MEDS ORDERED: LEVALBUTEROL HCL NEB 0.63 MG/3 ML AMPUL NEB PRN (02:55)
[2019-05-18] MEDS ORDERED: LORAZEPAM INJ 2 MG/1 ML VIAL IV PRN (02:55)
[2019-05-18] MEDS ORDERED: HYDRALAZINE HCL INJ/PF 20 MG/1 ML SDV IV PRN (02:55)
[2019-05-18] MEDS ORDERED: PROMETHAZINE HCL INJ 25 MG/1 ML VIAL IV PRN (02:55)
[2019-05-18] MEDS ORDERED: NICOTINE 21 MG/24 HR PATCH.TD24 TD PRN (02:55)
[2019-05-18] MEDS ORDERED: GUAIFENESIN SYRP 200 MG/10 ML UDC PO PRN (02:55)
[2019-05-18] MEDS ORDERED: MORPHINE SULFATE 10 MG/ML INJ IV PRN ×3 (02:55)
[2019-05-18] MEDS ORDERED: MAGNESIUM HYDROXIDE SUSP 30 ML UDCUP PO PRN (02:55)
[2019-05-18] MEDS ORDERED: MAG HYDROX/AL HYDROX/SIMETH SUSP 30 ML UDCUP PO PRN (02:55)
--- NOTE | 2019-05-18 04:39 | PDOC H&P ---
History of Present Illness Admission Date/PCP: 05/18/19 00:52 FELIPA COFFEY DO Patient complains of: Dyspnea History of Present Illness: DUARTE TAN is a 64 year old female who presented emergency room with a 4 day history of dyspnea. Patient admits that her dyspnea began on 05/14/2019 and has worsened despite a visit to the emergency room where she received nebulizer therapy and steroids and did have some transient improvement. She returned to the emergency room approximately 6 hours after her discharge via EMS because her dyspnea had become extremely severe. Her dyspnea is constant, accompanied by wheezing and air hunger, is made worse by any activity or exertion and is associated with a sharp chest pain on taking a deep breath with radiation around to her back. She denies other associated or accompanying signs and symptoms. She admits prior similar episodes related to her COPD. She has not identified any additional aggravating or ameliorating factors for her dyspnea. In the emergency room she was found to have acute hypoxic respiratory failure and was treated with BiPAP. She also received numerous nebulizer treatments with some improvement however she continued to require BiPAP to maintain an adequate oxygen saturation and was subsequently admitted to the hospital for further evaluation and treatment. Past Medical History Cardiac Medical History: Reports: Hyperlipidema Denies: Atrial Fibrillation, Congestive Heart Failure, Coronary Artery Disease, DVT, Myocardial Infarction, Hypertension, Peripheral Vascular Disease, Pulmonary Embolism Pulmonary Medical History: Reports: Asthma, Bronchitis, Chronic Obstructive Pulmonary Disease (COPD), Pneumonia, Respiratory Failure - Chronic hypoxic resp iratory failure EENT Medical History: Denies: Cataracts, Ears - Hearing aids Neurological Medical History: Denies: Hemorrhagic CVA, Ischemic CVA, Seizures Endocrine Medical History: Reports: Obesity Denies: Diabetes Mellitus Type 1, Diabetes Mellitus Type 2, Hyperthyroidism, Hypothyroidism Renal/ Medical History: Denies: Chronic Kidney Disease, Nephrolithiasis Malignancy Medical History: Reports: None GI Medical History: Reports: Gastroesophageal Reflux Disease Denies: Cirrhosis, Crohn's Disease, Hepatitis, Peptic Ulcer Disease, Ulcer ative Colitis Musculoskeltal Medical History: Reports: Arthritis Denies: Gout Skin Medical History: Denies: Eczema, Psoriasis Psychiatric Medical History: Reports: Bipolar Disorder, Depression, Tobacco Dependency Denies: Alcohol Dependency, Substance Abuse Traumatic Medical History: Reports: None Hematology: Reports: Anemia Denies: Bleeding Tendencies Infectious Medical History: Reports: None Past Surgical History Past Surgical History: Reports: Tubal Ligation Social History Information Source: Patient Lives with: Alone Smoking Status: Current Every Day Smoker Electronic Cigarette use?: No Frequency of Alcohol Use: Occasional Hx Recreational Drug Use: No Drugs: None Hx Prescription Drug Abuse: No - Advance Directive Resuscitation Status: Full Code Surrogate healthcare decision maker:: Genesis Glasst Family History Family History: COPD, Hypertension. denies: CAD, DM, Malignancy Parental Family History Reviewed: Yes Children Family History Reviewed: No Sibling(s) Family History Reviewed.: Yes Medication/Allergy Home Medications: Albuterol Sulfate [Proair HFA] 2 puff IH Q4HP PRN 09/12/16 Aripiprazole [Abilify] 20 mg PO QHS 09/12/16 Esomeprazole Mag Trihydrate [Nexium] 40 mg PO DAILY 09/12/16 Fluticasone/Salmeterol [Advair 250-50 Diskus 28 dose] 1 inh IH Q12 09/12/16 Gabapentin [Neurontin 300 mg Capsule] 300 mg PO Q12 09/12/16 Metformin HCl [Glucophage] 500 mg PO [id number] 09/12/16 Sertraline HCl [Zoloft] 150 mg PO DAILY 09/12/16 Aspirin [Aspirin EC] 81 mg PO DAILY 03/09/17 Carbidopa/Levodopa [Sinemet 25-100 mg Tablet] 1 tab PO QHS 03/09/17 Montelukast Sodium [Singulair 10 mg Tablet] 10 mg PO QHS 03/09/17 Trazodone HCl [Desyrel] 225 mg PO QHS 03/09/17 Albuterol Sulfate [Ventolin Hfa] 1 - 2 puff IH Q4 PRN #1 hfa.aer.ad 03/13/17 Levofloxacin [Levaquin 250 mg Tablet] 250 mg PO DAILY #10 tablet 03/13/17 Prednisone 20 mg PO DAILY #20 tablet 03/13/17 Umeclidinium Brm/Vilanterol Tr [Anoro Ellipta 62.5-25 Mcg INH] 1 each IH DAILY #3 blst.w.dev 03/13/17 Doxycycline Hyclate 100 mg PO BID #14 capsule 12/11/17 Prednisone [Deltasone 20 mg Tablet] 2 tab PO DAILY 5 Days #10 tablet 12/11/17 Azithromycin [Zithromax] 250 mg PO DAILY #5 tablet 07/02/18 Fluticasone Propionate [Flonase Nasal [place] 50 Mcg/[place] 16 gm] 2 sprays NASL Q12 #1 inhaler 07/02/18 Ipratropium/Albuterol Sulfate [Combivent Inhaler] 14.7 gm IH BID #1 aer.w.adap 0 07/02/18 Prednisone [Deltasone 10 mg Tablet] 10 mg PO BID #20 tablet 07/02/18 Allergies/Adverse Reactions: codeine [Codeine] Allergy (Severe, Verified 11/19/16 08:49) Asthma aspirin [Aspirin] Adverse Reaction (Mild, Verified 11/19/16 08:49) Nausea Review of Systems Constitutional: ABSENT: chills, fever(s) Eyes: ABSENT: visual disturbances, other - Eye pain Ears: ABSENT: hearing changes, other - Ear pain Nose, Mouth, and Throat: ABSENT: headache(s), mouth pain, sore throat Cardiovascular: PRESENT: as per HPI, chest pain, dyspnea on exertion. ABSENT: edema, orthropnea, palpitations Respiratory: PRESENT: as per HPI, dyspnea. ABSENT: cough, hemoptysis, sputum Gastrointestinal: ABSENT: abdominal pain, constipation, diarrhea, nausea, vomiting Genitourinary: ABSENT: dysuria, hematuria Musculoskeletal: PRESENT: as per HPI, back pain. ABSENT: joint swelling Integumentary: ABSENT: pruritus, rash Neurological: ABSENT: confusion, convulsions, focal weakness, memory loss, syncope Psychiatric: ABSENT: anxiety, depression Endocrine: ABSENT: cold intolerance, heat intolerance, polydipsia, polyphagia, polyuria Hematologic/Lymphatic: ABSENT: easy bleeding, easy bruising Allergic/Immunologic: ABSENT: seasonal rhinorrhea Physical Exam Vital Signs: Temp Pulse Resp BP Pulse Ox 97.7 F 24 H 110/51 L 91 L 05/17/19 22:33 05/17/19 22:27 05/17/19 22:27 05/17/19 22:27 Intake & Output 05/16/19 05/17/19 05/18/19 23:59 23:59 23:59 Intake Total 1000 Balance 1000 Weight 66.7 kg General appearance: PRESENT: no acute distress, cooperative, obese, other - On BiPAP at the time of my exam Head exam: PRESENT: atraumatic, normocephalic Eye exam: PRESENT: conjunctiva pink. ABSENT: conjunctival injection, scleral icterus Ear exam: PRESENT: normal external ear exam. ABSENT: bleeding, drainage Mouth exam: PRESENT: dry mucosa, neck supple Neck exam: ABSENT: thyromegaly, tracheal deviation Respiratory exam: PRESENT: decreased breath sounds - Moderately decreased breath sounds throughout all zapata consistent with moderate to severe COPD, prolonged expiratory phas - Moderately prolonged expiratory phase throughout all zapata, symmetrical, tachypnea, wheezes - Moderate expiratory wheezes throughout all zapata, other - On BiPAP Cardiovascular exam: PRESENT: RRR. ABSENT: clicks, gallop, rubs Pulses: PRESENT: normal radial pulses, normal dorsalis pedis pul Vascular exam: PRESENT: normal capillary refill. ABSENT: pallor GI/Abdominal exam: PRESENT: normal bowel sounds, soft. ABSENT: tenderness Rectal exam: PRESENT: deferred Extremities exam: ABSENT: joint swelling, pedal edema Musculoskeletal exam: ABSENT: deformity, dislocation Neurological exam: PRESENT: alert, oriented to person, oriented to place, oriented to time, oriented to situation, CN II-XII grossly intact. ABSENT: rodney r sensory deficit Psychiatric exam: PRESENT: appropriate affect, normal mood Skin exam: PRESENT: dry, intact, warm. ABSENT: jaundice, rash, urticaria Results Laboratory Results: 05/17/19 20:00 05/17/19 21:02 05/17/19 05/17/19 05/17/19 20:00 20:00 20:00 WBC 3.9 L RBC 5.14 Hgb 15.6 H Hct 44.4 MCV 86 MCH 30.2 MCHC 35.0 RDW 14.3 H Plt Count 149 L Seg Neutrophils % 85.1 H VBG pH 7.28 L VBG pCO2 49.7 VBG HCO3 22.8 VBG Base Excess -4.4 Sodium Cancelled Potassium Cancelled Chloride Cancelled Carbon Dioxide Cancelled Anion Gap Cancelled BUN Cancelled Creatinine Cancelled Est GFR ( Amer) Cancelled Est GFR (Non-Af Amer) Cancelled Glucose Cancelled Lactic Acid Calcium Cancelled Total Bilirubin Cancelled AST Cancelled Alkaline Phosphatase Cancelled Total Protein Cancelled Albumin Cancelled 05/17/19 05/17/19 05/17/19 20:00 21:02 23:03 WBC RBC Hgb Hct MCV MCH MCHC RDW Plt Count Seg Neutrophils % VBG pH VBG pCO2 VBG HCO3 VBG Base Excess Sodium 137.6 Potassium 3.7 Chloride 103 Carbon Dioxide 23 Anion Gap 12 BUN 18 Creatinine 0.81 Est GFR ( Amer) > 60 Est GFR (Non-Af Amer) Glucose 167 H Lactic Acid 1.6 1.4 Calcium 8.4 Total Bilirubin 0.5 AST 24 Alkaline Phosphatase 55 Total Protein 6.7 Albumin 3.7 05/17/19 20:00 Troponin I < 0.012 Impressions: Chest X-Ray 05/17/19 20:07 IMPRESSION: No acute abnormality is identified. Assessment and Plan - Diagnosis (1) Acute exacerbation of chronic obstructive pulmonary disease (COPD) Is this a current diagnosis for this admission?: Yes (2) Acute respiratory failure with hypoxia Is this a current diagnosis for this admission?: Yes (3) Pleuritic chest pain Is this a current diagnosis for this admission?: Yes (4) Gastroesophageal reflux disease Qualifiers: Esophagitis presence: without esophagitis Qualified Code(s): K21.9 - Gastro-esophageal reflux disease without esophagitis Is this a current diagnosis for this admission?: Yes (5) Hypertension Qualifiers: Hypertension type: essential hypertension Qualified Code(s): I10 - Essential (primary) hypertension Is this a current diagnosis for this admission?: Yes (6) Hypercholesterolemia Is this a current diagnosis for this admission?: Yes (7) Tobacco abuse Is this a current diagnosis for this admission?: Yes (8) Bipolar disorder Qualifiers: Active/Remission status: remission status unspecified Qualified Code(s): F31.9 - Bipolar disorder, unspecified Is this a current diagnosis for this admission?: Yes - Plan Summary Summary: Patient is admitted to medical floor where she will receive routine supportive and symptomatic cares. She will receive supplemental oxygen via airway pressure support devices and/or nasal cannula in order to maintain an adequate oxygen saturation. She received aggressive pulmonary toilet utilizing nebulized Xopenex, Atrovent and Pulmicort. She will receive IV steroids utilizing Solu- Medrol 40 mg IV every 6 hours x3 doses. She will receive morphine sulfate 2 to 4 mg IV every 2 hours on an as-needed basis for pain control. She will use Ativan 1 mg IV every 4 hours as needed anxiety. CBCs, metabolic profiles and magnesium levels will be followed as appropriate. Patient restarted on her usual home medications for her chronic medical illnesses as appropriate once her medication list has been verified and reconciled. Smoking cessation is advised and counseled briefly at the bedside. A nicotine replacement patch is available for the patient's use, if needed. - Time Time Spent with patient: 15-24 minutes Smoking Cessation Education: 3 to 10 minutes Medications reviewed and adjusted accordingly: Yes Anticipated discharge: Home - Inpatient Certification Based on my medical assessment, after consideration of the patient's comorbidities, presenting symptoms, or acuity I expect that the services needed warrant INPATIENT care.: Yes I certify that my determination is in accordance with my understanding of Medicare's requirements for reasonable and necessary INPATIENT services [42 CFR 412.3e].: Yes Medical Necessity: Failure to Improve With Outpatient Therapy, Need Close Monitoring Due to Risk of Patient Decompensation, Need for Nebulizer Therapy and Monitoring of Response, Need for Pain Control, Risk of Complication if Not Cared For in Hospital
[2019-05-18] MEDS ORDERED: INFLUENZA QUAD (6MOS+) 2019-20 VAC 0.5 ML SYR IM ONE (05:28)
[2019-05-18] MEDS: HEPARIN SOD (PORCINE) 5,000 UNIT/ML 1 ML VIAL SUBCUT SCH ×3 (06:03→21:28)
[2019-05-18] MEDS: METHYLPREDNISOLONE INJ 40 MG/1 ML SDV IV SCH ×3 (06:04→18:26)
[2019-05-18] MEDS: ACETAMINOPHEN 325 MG TABLET PO PRN (06:05)
[2019-05-18] MEDS ORDERED: BUDESONIDE NEB 0.5 MG/2 ML AMPUL NEB SCH (08:00)
[2019-05-18] MEDS: IPRATROPIUM BROMIDE 0.02% NEB 0.5 MG/2.5 ML AMPUL NEB SCH ×3 (08:52→23:48)
[2019-05-18] MEDS: LEVALBUTEROL HCL NEB 1.25 MG/3 ML AMPUL NEB SCH ×3 (08:52→23:48)
[2019-05-18] MEDS: FAMOTIDINE 20 MG TABLET PO SCH ×2 (10:57→21:27)
[2019-05-18] MEDS: DOCUSATE SODIUM 100 MG CAPSULE PO SCH ×2 (10:57→17:12)
[2019-05-18] MEDS ORDERED: SERTRALINE HCL 50 MG TABLET PO ONE (15:00)
--- NOTE | 2019-05-18 16:59 | PDOC PROGRESS REPORT ---
Subjective Progress Note for:: 05/18/19 Subjective:: Patient is resting in bed on nasal cannula. She was sleeping but awakens easily. She states that she is feeling slightly better today. Reason For Visit: ACUTE EXACERBATION OF COPD,ACUTE RESPIRATORY Physical Exam Vital Signs: Temp Pulse Resp BP Pulse Ox 97.7 F 68 19 108/54 L 97 05/18/19 16:40 05/18/19 16:40 05/18/19 16:40 05/18/19 16:40 05/18/19 16:40 Intake & Output 05/17/19 05/18/19 05/19/19 06:59 06:59 06:59 Intake Total 1000 271 Output Total 100 Balance 1000 171 Weight 66.7 kg 66.7 kg General appearance: PRESENT: cooperative, mild distress, well-developed Head exam: PRESENT: atraumatic, normocephalic Ear exam: PRESENT: normal external ear exam. ABSENT: bleeding, drainage Respiratory exam: PRESENT: prolonged expiratory phas, symmetrical, wheezes - Sporadic expiratory wheezes. ABSENT: accessory muscle use, rales, rhonchi, tachypnea Cardiovascular exam: PRESENT: RRR, +S1, +S2 GI/Abdominal exam: PRESENT: normal bowel sounds, soft. ABSENT: distended, guarding, mass, tenderness Rectal exam: PRESENT: deferred Extremities exam: PRESENT: full ROM. ABSENT: pedal edema Musculoskeletal exam: PRESENT: ambulatory, normal inspection. ABSENT: deformity Neurological exam: PRESENT: alert, awake, oriented to person, oriented to place, oriented to time, oriented to situation, CN II-XII grossly intact Psychiatric exam: PRESENT: flat affect. ABSENT: agitated, anxious Focused psych exam: ABSENT: delusional, restlessness Skin exam: PRESENT: dry, normal color, warm. ABSENT: rash Results Laboratory Results: 05/17/19 20:00 05/17/19 21:02 05/17/19 05/17/19 05/17/19 20:00 20:00 20:00 WBC 3.9 L RBC 5.14 Hgb 15.6 H Hct 44.4 MCV 86 MCH 30.2 MCHC 35.0 RDW 14.3 H Plt Count 149 L Seg Neutrophils % 85.1 H VBG pH 7.28 L VBG pCO2 49.7 VBG HCO3 22.8 VBG Base Excess -4.4 Sodium Cancelled Potassium Cancelled Chloride Cancelled Carbon Dioxide Cancelled Anion Gap Cancelled BUN Cancelled Creatinine Cancelled Est GFR ( Amer) Cancelled Est GFR (Non-Af Amer) Cancelled Glucose Cancelled Lactic Acid Calcium Cancelled Total Bilirubin Cancelled AST Cancelled Alkaline Phosphatase Cancelled Total Protein Cancelled Albumin Cancelled 05/17/19 05/17/19 05/17/19 20:00 21:02 23:03 WBC RBC Hgb Hct MCV MCH MCHC RDW Plt Count Seg Neutrophils % VBG pH VBG pCO2 VBG HCO3 VBG Base Excess Sodium 137.6 Potassium 3.7 Chloride 103 Carbon Dioxide 23 Anion Gap 12 BUN 18 Creatinine 0.81 Est GFR ( Amer) > 60 Est GFR (Non-Af Amer) Glucose 167 H Lactic Acid 1.6 1.4 Calcium 8.4 Total Bilirubin 0.5 AST 24 Alkaline Phosphatase 55 Total Protein 6.7 Albumin 3.7 05/18/19 02:20 WBC RBC Hgb Hct MCV MCH MCHC RDW Plt Count Seg Neutrophils % VBG pH VBG pCO2 VBG HCO3 VBG Base Excess Sodium Potassium Chloride Carbon Dioxide Anion Gap BUN Creatinine Est GFR ( Amer) Est GFR (Non-Af Amer) Glucose Lactic Acid 1.3 Calcium Total Bilirubin AST Alkaline Phosphatase Total Protein Albumin 05/17/19 20:00 Troponin I < 0.012 Impressions: Chest X-Ray 05/17/19 20:07 IMPRESSION: No acute abnormality is identified. Assessment and Plan - Diagnosis (1) Acute respiratory failure with hypoxia Is this a current diagnosis for this admission?: Yes (2) Acute exacerbation of chronic obstructive pulmonary disease (COPD) Is this a current diagnosis for this admission?: Yes (3) Pleuritic chest pain Is this a current diagnosis for this admission?: Yes (4) Bipolar disorder Qualifiers: Active/Remission status: remission status unspecified Qualified Code(s): F31.9 - Bipolar disorder, unspecified Is this a current diagnosis for this admission?: Yes (5) Gastroesophageal reflux disease Qualifiers: Esophagitis presence: without esophagitis Qualified Code(s): K21.9 - Gastro-esophageal reflux disease without esophagitis Is this a current diagnosis for this admission?: Yes (6) Tobacco abuse Is this a current diagnosis for this admission?: Yes - Plan Summary Summary: Patient is admitted to medical floor where she will receive routine supportive and symptomatic cares. She will receive supplemental oxygen via airway pressure support devices and/or nasal cannula in order to maintain an adequate oxygen saturation. She received aggressive pulmonary toilet utilizing nebulized Xopenex, Atrovent and Pulmicort. She will receive IV steroids utilizing Solu- Medrol 40 mg IV every 6 hours x3 doses. She will receive morphine sulfate 2 to 4 mg IV every 2 hours on an as-needed basis for pain control. She will use Ativan 1 mg IV every 4 hours as needed anxiety. CBCs, metabolic profiles and magnesium levels will be followed as appropriate. Patient restarted on her usual home medications for her chronic medical illnesses as appropriate once her medication list has been verified and reconciled. Smoking cessation is advised and counseled briefly at the bedside. A nicotine replacement patch is available for the patient's use, if needed. 05/18/2019 Exacerbation of COPD with hypoxic respiratory failure-oxygen supplementation to maintain saturation between 88 and 92%. Aggressive nebulizer treatments as well as mucolytic's. Monitor on telemetry with pulse oximetry as well. Currently on famotidine therapy for gastroesophageal reflux. The patient's blood pressure occasionally dips low. She does have a medical history that contains hyperlipidemia and hypertension. She is not on statin therapy and she clearly is not hypertensive at this time. A nicotine patch is offered for her tobacco dependence. We will continue all of her medications for her bipolar disorder. Continue to monitor the patient on telemetry. Continue to monitor pulse oximetry as well as monitoring laboratory studies. - Time Time Spent with patient: Less than 15 minutes Smoking Cessation Education: 3 to 10 minutes Medications reviewed and adjusted accordingly: Yes Anticipated discharge: Home
[2019-05-18] MEDS ORDERED: METHOCARBAMOL 750 MG TABLET PO PRN (17:02)
[2019-05-18] MEDS: GABAPENTIN 300 MG CAPSULE PO SCH ×2 (18:26→21:26)
[2019-05-18] MEDS: TRAZODONE HCL 50 MG TABLET PO SCH (21:25)
[2019-05-18] MEDS: MELATONIN 5 MG TABLET PO PRN (21:26)
[2019-05-18] MEDS: ARIPIPRAZOLE 5 MG TABLET PO SCH (21:27)
[2019-05-18] MEDS: CARBIDOPA/LEVODOPA 25-100 MG TABLET PO SCH (21:27)
[2019-05-18] MEDS ORDERED: ARIPIPRAZOLE 20 MG PO SCH (22:00)
[2019-05-18] MEDS ORDERED: CARBIDOPA/LEVODOPA 25-100 MG TABLET PO SCH (22:00)
[2019-05-18] MEDS ORDERED: TRAZODONE HCL PO SCH (22:00)
[2019-05-19 05:47] LABS: HEMATOCRIT 39.5 % (36.0-47.0); MEAN CORPUSCULAR HEMOGLOBIN 28.9 pg (27.0-33.4); MEAN CORPUSCULAR HGB CONC 33.6 g/dL (32.0-36.0); MEAN CORPUSCULAR VOLUME 86 fl (80-97); PLATELET COUNT 154 10^3/uL (150-450); RED BLOOD COUNT 4.59 10^6/uL (3.72-5.28); RED CELL DISTRIBUTION WIDTH 14.4 % (11.5-14.0)
[2019-05-19] MEDS: HEPARIN SOD (PORCINE) 5,000 UNIT/ML 1 ML VIAL SUBCUT SCH ×3 (05:49→21:43)
[2019-05-19 05:52] LABS: HEMOGLOBIN 13.3 g/dL (12.0-15.5)
[2019-05-19 06:13] LABS: ANION GAP 6 (5-19); BLOOD UREA NITROGEN 24 mg/dL (7-20); CALCIUM 8.9 mg/dL (8.4-10.2); CARBON DIOXIDE 27 mmol/L (22-30); CHLORIDE 105 mmol/L (98-107); GLUCOSE 123 mg/dL (75-110); POTASSIUM 5.2 mmol/L (3.6-5.0)
[2019-05-19 06:48] LABS: WHITE BLOOD COUNT 11.7 10^3/uL (4.0-10.5)
[2019-05-19] MEDS: IPRATROPIUM BROMIDE 0.02% NEB 0.5 MG/2.5 ML AMPUL NEB SCH ×3 (09:15→23:45)
[2019-05-19] MEDS: FAMOTIDINE 20 MG TABLET PO SCH ×2 (09:31→21:42)
[2019-05-19] MEDS: MELOXICAM 15 MG TABLET PO SCH (09:32)
[2019-05-19] MEDS: DOCUSATE SODIUM 100 MG CAPSULE PO SCH ×2 (09:32→17:07)
[2019-05-19] MEDS: SERTRALINE HCL 50 MG TABLET PO SCH (09:32)
[2019-05-19] MEDS: LORATADINE 10 MG TABLET PO SCH (09:32)
[2019-05-19] MEDS: GABAPENTIN 300 MG CAPSULE PO SCH ×4 (09:32→21:42)
[2019-05-19] MEDS: LEVALBUTEROL HCL NEB 1.25 MG/3 ML AMPUL NEB SCH ×3 (09:42→23:45)
[2019-05-19] MEDS: ACETAMINOPHEN 325 MG TABLET PO PRN ×2 (09:52→20:24)
[2019-05-19] MEDS ORDERED: (PENDING PHARMACY ID) (Sertraline Hcl [Sertraline Hcl] 150 MG) PO SCH (10:00)
[2019-05-19] MEDS: BUDESONIDE NEB 0.5 MG/2 ML AMPUL NEB SCH ×2 (16:18→23:45)
[2019-05-19] MEDS ORDERED: BUDESONIDE NEB 0.5 MG/2 ML AMPUL NEB SCH (18:15)
--- NOTE | 2019-05-19 19:30 | PDOC PROGRESS REPORT ---
Subjective Progress Note for:: 05/19/19 Subjective:: The patient is a 64-year-old female with a past medical history of h yperlipidemia, asthma, COPD, chronic respiratory failure (on home O2), obesity, GERD, arthritis, bipolar, depression, tobacco dependence with continuous use who was admitted to 2420 with acute respiratory failure with hypoxia secondary to a COPD exacerbation. Patient was seen on afternoon rounds. She is found resting in bed, comfortably, on supplemental oxygen via nasal cannula. She is currently on 4 L/min; utilizes 2.5-3 at home. She does report improved dyspnea today; though has not been a mbulatory yet. She also has a slight nonproductive cough which is also slightly improved. Overall she is feeling much better though does report continued fatigue. She denies fever, chills, chest pain, palpitations, abdominal pain, nausea vomiting and diarrhea. She reports good appetite. No questions or concerns at this time. No concerns per nursing. Reason For Visit: ACUTE EXACERBATION OF COPD,ACUTE RESPIRATORY Physical Exam Vital Signs: Temp Pulse Resp BP Pulse Ox 98.2 F 56 L 16 101/52 L 96 05/19/19 07:33 05/19/19 16:15 05/19/19 16:15 05/19/19 07:33 05/19/19 16:15 Intake & Output 05/18/19 05/19/19 05/20/19 06:59 06:59 06:59 Intake Total 1000 612 240 Output Total 100 Balance 1000 512 240 Weight 66.7 kg 65.8 kg General appearance: PRESENT: no acute distress, cooperative, disheveled, obese, well-developed, well-nourished Head exam: PRESENT: atraumatic, normocephalic Eye exam: PRESENT: conjunctiva pink, EOMI, PERRLA. ABSENT: scleral icterus Ear exam: PRESENT: normal external ear exam Mouth exam: PRESENT: moist, tongue midline Neck exam: ABSENT: carotid bruit, JVD, lymphadenopathy, thyromegaly Respiratory exam: PRESENT: clear to auscultation fili, prolonged expiratory phas, symmetrical, unlabored, other - Supplemental oxygen via nasal cannula. ABSENT: rales, rhonchi, wheezes Cardiovascular exam: PRESENT: RRR, +S1, +S2. ABSENT: diastolic murmur, rubs, systolic murmur Pulses: PRESENT: normal dorsalis pedis pul Vascular exam: PRESENT: normal capillary refill GI/Abdominal exam: PRESENT: normal bowel sounds, soft. ABSENT: distended, guarding, mass, organolmegaly, rebound, tenderness Rectal exam: PRESENT: deferred Extremities exam: PRESENT: full ROM. ABSENT: calf tenderness, clubbing, pedal edema Neurological exam: PRESENT: alert, awake, oriented to person, oriented to place, oriented to time, oriented to situation, CN II-XII grossly intact, other - Fatigue. ABSENT: motor sensory deficit Psychiatric exam: PRESENT: flat affect, normal mood. ABSENT: homicidal ideation, suicidal ideation Skin exam: PRESENT: dry, intact, warm. ABSENT: cyanosis, rash Results Laboratory Results: 05/19/19 05:07 05/19/19 05:07 05/19/19 05/19/19 05:07 05:07 WBC 11.7 H D RBC 4.59 Hgb 13.3 D Hct 39.5 MCV 86 MCH 28.9 MCHC 33.6 RDW 14.4 H Plt Count 154 Sodium 138.2 Potassium 5.2 H Chloride 105 Carbon Dioxide 27 Anion Gap 6 BUN 24 H Creatinine 0.81 Est GFR ( Amer) > 60 Glucose 123 H Calcium 8.9 Magnesium 2.5 H 05/17/19 20:00 Troponin I < 0.012 Impressions: Chest X-Ray 05/17/19 20:07 IMPRESSION: No acute abnormality is identified. Assessment and Plan - Diagnosis (1) Acute exacerbation of chronic obstructive pulmonary disease (COPD) Is this a current diagnosis for this admission?: Yes Plan: Patient is admitted to the medical floor on continuous cardiac telemetry. Provide supplemental oxygen and BiPAP as needed to maintain saturations greater than 89%. She is provided scheduled and as needed nebulizer treatments. She is placed on IV Solu-Medrol; will decrease dose today. Mucinex twice daily. Daily claritin. Incentive spirometer, flutter valve, and encouraged ambulation. (2) Acute respiratory failure with hypoxia Is this a current diagnosis for this admission?: Yes Plan: Secondary to #1; management as above. (3) Pleuritic chest pain Is this a current diagnosis for this admission?: Yes Plan: Secondary to #1. Continue home dose meloxicam, Robaxin, and as needed Tylenol. IV Solu-Medrol for management of COPD which may also provide some pain relief. Heating pad. (4) Bipolar disorder Qualifiers: Active/Remission status: remission status unspecified Qualified Code(s): F31.9 - Bipolar disorder, unspecified Is this a current diagnosis for this admission?: Yes Plan: Continue home medication regiment; Abilify, Sinemet, gabapentin, Zoloft, trazodone. As needed Ativan. (5) Gastroesophageal reflux disease Qualifiers: Esophagitis presence: without esophagitis Qualified Code(s): K21.9 - Gastro-esophageal reflux disease without esophagitis Is this a current diagnosis for this admission?: Yes Plan: Pepcid twice daily. (6) Tobacco abuse Is this a current diagnosis for this admission?: Yes Plan: Smoking cessation encouraged. Nicotine replacement therapies provided. - Time Time Spent with patient: 25-34 minutes Medications reviewed and adjusted accordingly: Yes Anticipated discharge: Home Within: within 48 hours
[2019-05-19] MEDS: MELATONIN 5 MG TABLET PO PRN (21:41)
[2019-05-19] MEDS: METHYLPREDNISOLONE INJ 40 MG/1 ML SDV IV SCH (21:41)
[2019-05-19] MEDS: ARIPIPRAZOLE 5 MG TABLET PO SCH (21:42)
[2019-05-19] MEDS: GUAIFENESIN 600 MG TABLET.SA PO SCH (21:42)
[2019-05-19] MEDS: TRAZODONE HCL 50 MG TABLET PO SCH (21:42)
[2019-05-19] MEDS: CARBIDOPA/LEVODOPA 25-100 MG TABLET PO SCH (21:43)
[2019-05-20] MEDS: ACETAMINOPHEN 325 MG TABLET PO PRN (05:07)
[2019-05-20] MEDS: METHYLPREDNISOLONE INJ 40 MG/1 ML SDV IV SCH ×2 (05:09→22:19)
[2019-05-20] MEDS: HEPARIN SOD (PORCINE) 5,000 UNIT/ML 1 ML VIAL SUBCUT SCH ×3 (05:12→22:28)
[2019-05-20 06:08] LABS: HEMOGLOBIN 12.8 g/dL (12.0-15.5); MEAN CORPUSCULAR HEMOGLOBIN 29.7 pg (27.0-33.4); MEAN CORPUSCULAR HGB CONC 34.5 g/dL (32.0-36.0); MEAN CORPUSCULAR VOLUME 86 fl (80-97); PLATELET COUNT 146 10^3/uL (150-450); RED CELL DISTRIBUTION WIDTH 14.9 % (11.5-14.0); WHITE BLOOD COUNT 5.1 10^3/uL (4.0-10.5)
[2019-05-20 06:35] LABS: ANION GAP 11 (5-19); BLOOD UREA NITROGEN 30 mg/dL (7-20); CALCIUM 8.5 mg/dL (8.4-10.2); CARBON DIOXIDE 23 mmol/L (22-30); CHLORIDE 103 mmol/L (98-107); POTASSIUM 5.1 mmol/L (3.6-5.0)
[2019-05-20 06:40] LABS: GLUCOSE 125 mg/dL (75-110)
[2019-05-20] MEDS: LORATADINE 10 MG TABLET PO SCH (09:26)
[2019-05-20] MEDS: GABAPENTIN 300 MG CAPSULE PO SCH ×4 (09:26→22:19)
[2019-05-20] MEDS: FAMOTIDINE 20 MG TABLET PO SCH ×2 (09:26→22:19)
[2019-05-20] MEDS: DOCUSATE SODIUM 100 MG CAPSULE PO SCH ×2 (09:26→17:19)
[2019-05-20] MEDS: GUAIFENESIN 600 MG TABLET.SA PO SCH ×2 (09:26→22:19)
[2019-05-20] MEDS: SERTRALINE HCL 50 MG TABLET PO SCH (09:26)
[2019-05-20] MEDS: IPRATROPIUM BROMIDE 0.02% NEB 0.5 MG/2.5 ML AMPUL NEB SCH ×2 (09:46→20:01)
[2019-05-20] MEDS: LEVALBUTEROL HCL NEB 1.25 MG/3 ML AMPUL NEB SCH ×2 (09:46→20:01)
[2019-05-20] MEDS: BUDESONIDE NEB 0.5 MG/2 ML AMPUL NEB SCH (09:47)
[2019-05-20] MEDS: MELOXICAM 15 MG TABLET PO SCH (12:26)
--- NOTE | 2019-05-20 13:31 | PDOC PROGRESS REPORT ---
Subjective Progress Note for:: 05/20/19 Subjective:: The patient is a 64-year-old female with a past medical history of h yperlipidemia, asthma, COPD, chronic respiratory failure (on home O2), obesity, GERD, arthritis, bipolar, depression, tobacco dependence with continuous use who was admitted to 2420 with acute respiratory failure with hypoxia secondary to a COPD exacerbation. Patient was seen on morning rounds sitting up to the recliner, comfortably, on supplemental oxygen via nasal cannula. She is currently on 2.5 L/min; utilizes 2.5-3 at home. She does report improved dyspnea toda. She reports that her non productive cough is slightly increased today. Overall she is feeling much better. Hopeful to go home soon. She denies fever, chills, chest pain, palpitations, abdominal pain, nausea vomiting and diarrhea. She reports good appetite. No questions or concerns at this time. No concerns per nursing. Reason For Visit: ACUTE EXACERBATION OF COPD,ACUTE RESPIRATORY Physical Exam Vital Signs: Temp Pulse Resp BP Pulse Ox 97.7 F 63 20 97/56 L 89 L 05/20/19 08:06 05/20/19 10:08 05/20/19 10:08 05/20/19 08:06 05/20/19 10:08 Intake & Output 05/19/19 05/20/19 05/21/19 06:59 06:59 06:59 Intake Total 612 240 300 Output Total 100 250 Balance 512 240 50 Weight 65.8 kg 65.8 kg General appearance: PRESENT: no acute distress, cooperative, disheveled, obese, well-developed, well-nourished Head exam: PRESENT: atraumatic, normocephalic Eye exam: PRESENT: conjunctiva pink, EOMI, PERRLA. ABSENT: scleral icterus Mouth exam: PRESENT: moist, tongue midline Teeth exam: PRESENT: poor dentation Respiratory exam: PRESENT: clear to auscultation fili, prolonged expiratory phas, symmetrical, unlabored, other - baseline oxygen requirement. ABSENT: rales, rhonchi, wheezes Cardiovascular exam: PRESENT: RRR, +S1, +S2. ABSENT: diastolic murmur, rubs, systolic murmur Pulses: PRESENT: normal dorsalis pedis pul Vascular exam: PRESENT: normal capillary refill GI/Abdominal exam: PRESENT: normal bowel sounds, soft. ABSENT: distended, guarding, mass, organolmegaly, rebound, tenderness Rectal exam: PRESENT: deferred Extremities exam: PRESENT: full ROM. ABSENT: calf tenderness, clubbing, pedal edema Neurological exam: PRESENT: alert, awake, oriented to person, oriented to place, oriented to time, oriented to situation, CN II-XII grossly intact. ABSENT: motor sensory deficit Psychiatric exam: PRESENT: flat affect, normal mood. ABSENT: homicidal ideation, suicidal ideation Skin exam: PRESENT: dry, intact, warm. ABSENT: cyanosis, rash Results Laboratory Results: 05/20/19 05:28 05/20/19 05:28 05/20/19 05/20/19 05:28 05:28 WBC 5.1 RBC 4.30 Hgb 12.8 Hct 37.0 MCV 86 MCH 29.7 MCHC 34.5 RDW 14.9 H Plt Count 146 L Sodium 137.2 Potassium 5.1 H Chloride 103 Carbon Dioxide 23 Anion Gap 11 BUN 30 H Creatinine 1.03 Est GFR ( Amer) > 60 Glucose 125 H Calcium 8.5 Magnesium 2.1 05/17/19 20:00 Troponin I < 0.012 Impressions: Chest X-Ray 05/17/19 20:07 IMPRESSION: No acute abnormality is identified. Assessment and Plan - Diagnosis (1) Acute exacerbation of chronic obstructive pulmonary disease (COPD) Is this a current diagnosis for this admission?: Yes Plan: Improved. Patient is admitted to the medical floor on continuous cardiac telemetry. Provide supplemental oxygen and BiPAP as needed to maintain saturations greater than 89%. She is provided scheduled and as needed nebulizer treatments. Decreased frequency of scheduled nebs. Solu-medrol dose decreased again today. Mucinex twice daily. Daily claritin. Incentive spirometer, flutter valve, and encouraged ambulation. (2) Acute respiratory failure with hypoxia Is this a current diagnosis for this admission?: Yes Plan: Secondary to #1; management as above. (3) Pleuritic chest pain Is this a current diagnosis for this admission?: Yes Plan: Secondary to #1. Continue home dose meloxicam, Robaxin, and as needed Tylenol. IV Solu-Medrol for management of COPD which may also provide some pain relief. Heating pad. (4) Bipolar disorder Qualifiers: Active/Remission status: remission status unspecified Qualified Code(s): F31.9 - Bipolar disorder, unspecified Is this a current diagnosis for this admission?: Yes Plan: Stable. Continue home medication regiment; Abilify, Sinemet, gabapentin, Zoloft, trazodone. As needed Ativan. (5) Gastroesophageal reflux disease Qualifiers: Esophagitis presence: without esophagitis Qualified Code(s): K21.9 - Gastro-esophageal reflux disease without esophagitis Is this a current diagnosis for this admission?: Yes Plan: Pepcid twice daily. (6) Tobacco abuse Is this a current diagnosis for this admission?: Yes Plan: Smoking cessation encouraged. Nicotine replacement therapies provided. - Time Time Spent with patient: 25-34 minutes Medications reviewed and adjusted accordingly: Yes Anticipated discharge: Home Within: within 24 hours
[2019-05-20] MEDS: ARIPIPRAZOLE 5 MG TABLET PO SCH (22:19)
[2019-05-20] MEDS: CARBIDOPA/LEVODOPA 25-100 MG TABLET PO SCH (22:19)
[2019-05-20] MEDS: TRAZODONE HCL 50 MG TABLET PO SCH (22:19)
[2019-05-20] MEDS: MELATONIN 5 MG TABLET PO PRN (22:19)
[2019-05-21] MEDS: HEPARIN SOD (PORCINE) 5,000 UNIT/ML 1 ML VIAL SUBCUT SCH (05:07)
[2019-05-21 07:07] LABS: HEMATOCRIT 40.1 % (36.0-47.0); HEMOGLOBIN 13.4 g/dL (12.0-15.5); MEAN CORPUSCULAR HGB CONC 33.5 g/dL (32.0-36.0); MEAN CORPUSCULAR VOLUME 87 fl (80-97); PLATELET COUNT 152 10^3/uL (150-450); RED BLOOD COUNT 4.63 10^6/uL (3.72-5.28); WHITE BLOOD COUNT 6.6 10^3/uL (4.0-10.5)
[2019-05-21 07:26] LABS: ANION GAP 8 (5-19); BLOOD UREA NITROGEN 28 mg/dL (7-20); CARBON DIOXIDE 29 mmol/L (22-30); CHLORIDE 102 mmol/L (98-107); GLUCOSE 130 mg/dL (75-110); POTASSIUM 5.1 mmol/L (3.6-5.0)
[2019-05-21] MEDS: IPRATROPIUM BROMIDE 0.02% NEB 0.5 MG/2.5 ML AMPUL NEB SCH (07:43)
[2019-05-21] MEDS: LEVALBUTEROL HCL NEB 1.25 MG/3 ML AMPUL NEB SCH (07:43)
[2019-05-21 08:41] VITALS: BP 112/65
[2019-05-21] MEDS: SERTRALINE HCL 50 MG TABLET PO SCH (09:29)
[2019-05-21] MEDS: METHYLPREDNISOLONE INJ 40 MG/1 ML SDV IV SCH (09:29)
[2019-05-21] MEDS: DOCUSATE SODIUM 100 MG CAPSULE PO SCH (09:29)
[2019-05-21] MEDS: FAMOTIDINE 20 MG TABLET PO SCH (09:29)
[2019-05-21] MEDS: GUAIFENESIN 600 MG TABLET.SA PO SCH (09:29)
[2019-05-21] MEDS: LORATADINE 10 MG TABLET PO SCH (09:29)
[2019-05-21] MEDS: MELOXICAM 15 MG TABLET PO SCH (09:29)
[2019-05-21] MEDS: GABAPENTIN 300 MG CAPSULE PO SCH (09:29)
--- NOTE | 2019-05-23 17:08 | PDOC DISCHARGE SUMMARY ---
Impression - Admit/DC Date/PCP Admission Date/Primary Care Provider: 05/18/19 00:52 FELIPA COFFEY DO Discharge Date: 05/21/19 - Discharge Diagnosis (1) Acute exacerbation of chronic obstructive pulmonary disease (COPD) Is this a current diagnosis for this admission?: Yes (2) Acute respiratory failure with hypoxia Is this a current diagnosis for this admission?: Yes (3) Pleuritic chest pain Is this a current diagnosis for this admission?: Yes (4) Bipolar disorder Is this a current diagnosis for this admission?: Yes (5) Gastroesophageal reflux disease Is this a current diagnosis for this admission?: Yes (6) Tobacco abuse Is this a current diagnosis for this admission?: Yes - Additional Information Resuscitation Status: Full Code Discharge Diet: Cardiac Discharge Activity: Activity As Tolerated, Balance Activity w/Rest, Slowly Increase Activity Referrals: KAY NOLASCO MD [COMMUNITY BASED STAFF] - 05/22/19 10:20 am () FELIPA COFFEY DO [Primary Care Provider] - 06/02/19 11:00 am Prescriptions: Prednisone [Deltasone 20 mg Tablet] 60 mg PO DAILY #12 tablet Guaifenesin [Mucinex Sr 600 mg Tablet.sa] 600 mg PO Q12 #14 tablet.sa Nicotine [Nicoderm 21 mg/24 Hr Transderm Patch] 1 each TD DAILYP PRN #30 patch.td24 PRN Reason: Home Medications: Albuterol Sulfate [Proair HFA Inhalation Aerosol 8.5 gm MDI] 2 puff IH Q4HP PRN 05/18/19 Aripiprazole 20 mg PO QHS 05/18/19 Carbidopa/Levodopa [Sinemet 25-100 mg Tablet] 1 each PO QHS 05/18/19 Esomeprazole Magnesium 40 mg PO QAM 05/18/19 Fluticasone/Salmeterol [Advair 500-50 Diskus 14 Dose/Diskus] 1 puff IH Q12 05/18/19 Gabapentin [Neurontin 300 mg Capsule] 300 mg PO QID 05/18/19 Loratadine [Claritin 10 mg Tablet] 10 mg PO DAILY 05/18/19 Meloxicam [Mobic 15 mg Tablet] 15 mg PO DAILY 05/18/19 Methocarbamol [Robaxin 750 mg Tablet] 750 mg PO Q6HP PRN 05/18/19 Sertraline HCl 150 mg PO DAILY 05/18/19 Trazodone HCl 225 mg PO QHS 05/18/19 Acetaminophen [Tylenol 325 mg Tablet] 650 mg PO Q4HP PRN tablet 05/21/19 Guaifenesin [Mucinex Sr 600 mg Tablet.sa] 600 mg PO Q12 #14 tablet.sa 05/21/19 Nicotine [Nicoderm 21 mg/24 Hr Transderm Patch] 1 each TD DAILYP PRN #30 patch.td24 05/21/19 Prednisone [Deltasone 20 mg Tablet] 60 mg PO DAILY #12 tablet 05/21/19 History of Present Illiness History of Present Illness: Per H&P by Dr. Toledo: DUARTE TAN is a 64 year old female who presented emergency room with a 4 day history of dyspnea. Patient admits that her dyspnea began on 05/14/2019 and has worsened despite a visit to the emergency room where she received nebulizer therapy and steroids and did have some transient improvement. She returned to the emergency room approximately 6 hours after her discharge via EMS because her dyspnea had become extremely severe. Her dyspnea is constant, accompanied by wheezing and air hunger, is made worse by any activity or exertion and is associated with a sharp chest pain on taking a deep breath with radiation around to her back. She denies other associated or accom panying signs and symptoms. She admits prior similar episodes related to her COPD. She has not identified any additional aggravating or ameliorating factors for her dyspnea. In the emergency room she was found to have acute hypoxic respiratory failure and was treated with BiPAP. She also received numerous nebulizer treatments with some improvement however she continued to require BiPAP to maintain an adequate oxygen saturation and was subsequently admitted to the hospital for further evaluation and treatment. Hospital Course Hospital Course: (1) Acute exacerbation of chronic obstructive pulmonary disease (COPD) Acute exacerbation has resolved; patient is now ambulatory on her baseline oxygen requirement without increased work of breathing. Patient was admitted to the medical floor on continuous cardiac telemetry and supported with supplemental oxygen and BiPAP, scheduled and as needed nebulizer treatments, Mucinex twice daily, and Solu-medrol. Her steroids were gradually decreased as symptoms improved and she was discharged on prednisone. Pulmonary toilet was encouraged with Incentive spirometer, flutter valve, and ambulation. (2) Acute respiratory failure with hypoxia Resolved. Secondary to #1; management as above. (3) Pleuritic chest pain Resolved. Secondary to #1. Continue home dose meloxicam, Robaxin, and as needed Tylenol. (4) Bipolar disorder Stable. Continued on home medication regiment; Abilify, Sinemet, gabapentin, Zoloft, trazodone. (5) Gastroesophageal reflux disease Pepcid twice daily. (6) Tobacco abuse Smoking cessation encouraged. Nicotine replacement therapies provided. Physical Exam Vital Signs: Temp Pulse Resp BP Pulse Ox 98.0 F 61 21 H 112/65 92 05/21/19 10:53 05/21/19 10:53 05/21/19 10:53 05/21/19 10:53 05/21/19 10:53 General appearance: PRESENT: no acute distress, cooperative, disheveled, obese, well-developed, well-nourished Head exam: PRESENT: atraumatic, normocephalic Eye exam: PRESENT: conjunctiva pink, EOMI, PERRLA. ABSENT: scleral icterus Mouth exam: PRESENT: moist, tongue midline Teeth exam: PRESENT: poor dentation Respiratory exam: PRESENT: clear to auscultation fili, prolonged expiratory phas, symmetrical, unlabored, other - baseline oxygen requirement. ABSENT: rales, rhonchi, wheezes Cardiovascular exam: PRESENT: RRR, +S1, +S2. ABSENT: diastolic murmur, rubs, systolic murmur Pulses: PRESENT: normal dorsalis pedis pul Vascular exam: PRESENT: normal capillary refill Extremities exam: PRESENT: full ROM. ABSENT: calf tenderness, clubbing, pedal edema Musculoskeletal exam: PRESENT: ambulatory Neurological exam: PRESENT: alert, awake, oriented to person, oriented to place, oriented to time, oriented to situation, CN II-XII grossly intact. ABSENT: motor sensory deficit Psychiatric exam: PRESENT: flat affect, normal mood. ABSENT: homicidal ideation , suicidal ideation Skin exam: PRESENT: dry, intact, warm. ABSENT: cyanosis, rash Results Laboratory Results: WBC 6.6 10^3/uL (4.0-10.5) 05/21/19 06:28 RBC 4.63 10^6/uL (3.72-5.28) 05/21/19 06:28 Hgb 13.4 g/dL (12.0-15.5) 05/21/19 06:28 Hct 40.1 % (36.0-47.0) 05/21/19 06:28 MCV 87 fl (80-97) 05/21/19 06:28 MCH 29.0 pg (27.0-33.4) 05/21/19 06:28 MCHC 33.5 g/dL (32.0-36.0) 05/21/19 06:28 RDW 15.0 % (11.5-14.0) H 05/21/19 06:28 Plt Count 152 10^3/uL (150-450) 05/21/19 06:28 Lymph % (Auto) 12.5 % (13-45) L 05/17/19 20:00 Miner % (Auto) 2.1 % (3-13) L 05/17/19 20:00 Eos % (Auto) 0.1 % (0-6) 05/17/19 20:00 Baso % (Auto) 0.2 % (0-2) 05/17/19 20:00 Absolute Neuts (auto) 3.3 10^3/uL (1.7-8.2) 05/17/19 20:00 Absolute Lymphs (auto) 0.5 10^3/uL (0.5-4.7) 05/17/19 20:00 Absolute Monos (auto) 0.1 10^3/uL (0.1-1.4) 05/17/19 20:00 Absolute Eos (auto) 0.0 10^3/uL (0.0-0.6) 05/17/19 20:00 Absolute Basos (auto) 0.0 10^3/uL (0.0-0.2) 05/17/19 20: Seg Neutrophils % 85.1 % (42-78) H 05/17/19 20:00 PT 13.2 SEC (11.4-15.4) 05/17/19 20:00 INR 1.00 05/17/19 20:00 VBG pH 7.28 (7.30-7.42) L 05/17/19 20:00 VBG pCO2 49.7 mmHg (35-63) 05/17/19 20:00 VBG HCO3 22.8 mmol/L (20-32) 05/17/19 20: VBG Base Excess -4.4 mmol/L 05/17/19 20:00 Sodium 139.0 mmol/L (137-145) 05/21/19 06:28 Potassium 5.1 mmol/L (3.6-5.0) H 05/21/19 06:28 Chloride 102 mmol/L (98-107) 05/21/19 06:28 Carbon Dioxide 29 mmol/L (22-30) 05/21/19 06:28 Anion Gap 8 (5-19) 05/21/19 06:28 BUN 28 mg/dL (7-20) H 05/21/19 06:28 Creatinine 0.88 mg/dL (0.52-1.25) 05/21/19 06:28 Est GFR ( Amer) > 60 (>60) 05/21/19 06:28 Est GFR (Non-Af Amer) Cancelled 05/17/19 20:00 Est GFR (MDRD) Non-Af > 60 (>60) 05/21/19 06:28 Glucose 130 mg/dL (75-110) H 05/21/19 06:28 Lactic Acid 1.3 mmol/L (0.7-2.1) 05/18/19 02: Calcium 9.0 mg/dL (8.4-10.2) 05/21/19 06:28 Magnesium 2.3 mg/dL (1.6-2.3) 05/21/19 06:28 Total Bilirubin 0.5 mg/dL (0.2-1.3) 05/17/19 21:02 Direct Bilirubin 0.3 mg/dL (0.0-0.4) 05/17/19 21:02 Neonat Total Bilirubin Not Reportable 05/17/19 21:02 Neonat Direct Bilirubin Not Reportable 05/17/19 21:02 Neonat Indirect Bili Not Reportable 05/17/19 21:02 AST 24 U/L (14-36) 05/17/19 21:02 ALT 16 U/L (<35) 05/17/19 21:02 Alkaline Phosphatase 55 U/L (38-126) 05/17/19 21:02 Troponin I < 0.012 ng/mL 05/17/19 20:00 Total Protein 6.7 g/dL (6.3-8.2) 05/17/19 21:02 Albumin 3.7 g/dL (3.5-5.0) 05/17/19 21:02 EGFR Cancelled 05/17/19 20:00 05/17/19 20:00 Troponin I < 0.012 Impressions: Chest X-Ray 05/17/19 20:07 IMPRESSION: No acute abnormality is identified. Plan Plan of Treatment: The patient was discharged home in stable condition. She is instructed to follow up with her primary care provider within 1 week. She is advised to take her medications as described. STOP smoking. Return to the emergency department as needed for concerning symptoms. Time Spent: Greater than 30 Minutes Stroke Is this a Stroke Patient?: No Acute Heart Failure - Is this a Heart Failure Patient?: No
== END 2019-05-21 13:00 | disposition home or self-care (01) | DRG 189 ==
LOC: ER 19:57 → EH 05-18 00:52 → 3W 05-18 04:34 → 5 05-20 01:35
PROVIDERS: ADMIT Emergency Medicine; ATTEND Emergency Medicine
PROC: 5A09457 Assistance with Respiratory Ventilation, 24-96 Consecutive Hours, Continuous Positive Airway Pressure (ICD-10-PCS; 2019-05-18)
PROC: 3E0234Z Introduction of Serum, Toxoid and Vaccine into Muscle, Percutaneous Approach (ICD-10-PCS; principal; 2019-05-21)
DX: J96.21 Acute and chronic respiratory failure with hypoxia (principal); J44.1 Chronic obstructive pulmonary disease with (acute) exacerbation; E66.9 Obesity, unspecified; K21.9 Gastro-esophageal reflux disease without esophagitis; M19.90 Unspecified osteoarthritis, unspecified site; F31.9 Bipolar disorder, unspecified; F17.200 Nicotine dependence, unspecified, uncomplicated; E78.00 Pure hypercholesterolemia, unspecified; Z79.51 Long term (current) use of inhaled steroids; Z88.5 Allergy status to narcotic agent; Z88.6 Allergy status to analgesic agent; Z79.899 Other long term (current) drug therapy; Z83.6 Family history of other diseases of the respiratory system; Z71.6 Tobacco abuse counseling; Z82.49 Family history of ischemic heart disease and other diseases of the circulatory system; Z23 Encounter for immunization
CPT/HCPCS: 36415; 71045; 80048; 82803; 83605; 83735; 84484; 85027; 85610; 87040; 87070; 90686; 93005; 93010; 94660; 94667; 94799; 99291; J2060; J2920; J3490; J7120; J7614

== ENCOUNTER → 2019-08-26 | Outpatient (CLI) | payer MEDICAID ==
--- NOTE | 2019-08-26 13:51 | RADIOLOGY REPORT (SQ) ---
EXAM DESCRIPTION: WRIST BILATERAL 3 VIEWS IMAGES COMPLETED DATE/TIME: 08/26/2019 1:36 pm REASON FOR STUDY: NECK PAIN;RADHA WRIST PAIN;RADHA KNEE PAIN M54.2 CERVICALGIA M25.531 PAIN IN RIGHT W RIST M25.532 PAIN IN LEFT WRIST COMPARISON: None. NUMBER OF VIEWS: Three views. TECHNIQUE: AP, lateral, and oblique radiographic images acquired of the right hand left wrist. LIMITATIONS: None. FINDINGS: MINERALIZATION: Normal. BONES: No acute fracture or dislocation. No worrisome bone lesions. Normal alignment. Minimal dege nerative changes at the 1st carpometacarpal joint bilaterally. SOFT TISSUES: No soft tissue swelling. No foreign body. OTHER: No other significant finding. IMPRESSION: No evidence of acute bony abnormality of either wrist. TECHNICAL DOCUMENTATION: JOB ID: [id number] 2010 [employer]- All Rights Reserved Reading location - IP/workstation name: [email or web address]
--- NOTE | 2019-08-26 13:54 | RADIOLOGY REPORT (SQ) ---
EXAM DESCRIPTION: KNEE LEFT 4 VIEWS; KNEE RIGHT 4 VIEWS IMAGES COMPLETED DATE/TIME: 08/26/2019 1:36 pm REASON FOR STUDY: NECK PAIN;RADHA WRIST PAIN;RADHA KNEE PAIN M54.2 CERVICALGIA M25.531 PAIN IN RIGHT W RIST M25.532 PAIN IN LEFT WRIST COMPARISON: None. NUMBER OF VIEWS: Four views. TECHNIQUE: AP, lateral, and both oblique radiographic images acquired of the right and left knees. LIMITATIONS: None. FINDINGS: RIGHT: MINERALIZATION: Normal. BONES: No acute fracture or dislocation. No worrisome bone lesions. Minimal medial compartment oste ophytosis. Joint space is relatively well-maintained. JOINT: No effusion. SOFT TISSUES: No soft tissue swelling. No radio-opaque foreign body. OTHER: No other significant finding. LEFT: MINERALIZATION: Normal. BONES: No acute fracture or dislocation. No worrisome bone lesions. JOINT: No effusion. SOFT TISSUES: No soft tissue swelling. No radio-opaque foreign body. OTHER: No other significant finding. IMPRESSION: No evidence of acute bony abnormality of either knee. No significant degenerative change. TECHNICAL DOCUMENTATION: JOB ID: [id number] 2010 [employer]- All Rights Reserved Reading location - IP/workstation name: [email or web address]
--- NOTE | 2019-08-26 13:54 | RADIOLOGY REPORT (SQ) ---
EXAM DESCRIPTION: KNEE LEFT 4 VIEWS; KNEE RIGHT 4 VIEWS IMAGES COMPLETED DATE/TIME: 08/26/2019 1:36 pm REASON FOR STUDY: NECK PAIN;RADHA WRIST PAIN;RADHA KNEE PAIN M54.2 CERVICALGIA M25.531 PAIN IN RIGHT W RIST M25.532 PAIN IN LEFT WRIST COMPARISON: None. NUMBER OF VIEWS: Four views. TECHNIQUE: AP, lateral, and both oblique radiographic images acquired of the right and left knees. LIMITATIONS: None. FINDINGS: RIGHT: MINERALIZATION: Normal. BONES: No acute fracture or dislocation. No worrisome bone lesions. Minimal medial compartment oste ophytosis. Joint space is relatively well-maintained. JOINT: No effusion. SOFT TISSUES: No soft tissue swelling. No radio-opaque foreign body. OTHER: No other significant finding. LEFT: MINERALIZATION: Normal. BONES: No acute fracture or dislocation. No worrisome bone lesions. JOINT: No effusion. SOFT TISSUES: No soft tissue swelling. No radio-opaque foreign body. OTHER: No other significant finding. IMPRESSION: No evidence of acute bony abnormality of either knee. No significant degenerative change. TECHNICAL DOCUMENTATION: JOB ID: [id number] 2010 [employer]- All Rights Reserved Reading location - IP/workstation name: [email or web address]
--- NOTE | 2019-08-26 14:55 | RADIOLOGY REPORT (SQ) ---
EXAM DESCRIPTION: C SP 4 OR 5 VIEWS IMAGES COMPLETED DATE/TIME: 08/26/2019 1:36 pm REASON FOR STUDY: NECK PAIN;RADHA WRIST PAIN;RADHA KNEE PAIN M54.2 CERVICALGIA M25.531 PAIN IN RIGHT W RIST M25.532 PAIN IN LEFT WRIST COMPARISON: None. NUMBER OF VIEWS: 7 views TECHNIQUE: AP, lateral, obliques, swimmer's and odontoid radiographic images acquired of the cervica l spine. LIMITATIONS: None. FINDINGS: MINERALIZATION: Decreased. ALIGNMENT: Anatomic. VERTEBRAE: Vertebral bodies of normal height. DISCS: Mild multilevel disc height loss and endplate change greatest at C5-6 and C6-7. Incomplete fu denisa of the posterior arch of C1. FORAMINA: No osteophytes or foraminal narrowing. LATERAL AND POSTERIOR ELEMENTS: Facets, lateral masses and spinous processes without significant find ings. Mild osseous neural foraminal narrowing greatest at C5-6 and C6-7 on the left. HARDWARE: None in the spine. SOFT TISSUES: Carotid vascular calcifications. OTHER: No other significant finding. IMPRESSION: No evidence of acute bony abnormality of the cervical spine. Mild degenerative changes with disc height loss greatest at C5-6 and C6-7. Associated mild osseous n eural foraminal narrowing at those levels, left greater than right. TECHNICAL DOCUMENTATION: JOB ID: [id number] 2010 [employer]- All Rights Reserved Reading location - IP/workstation name: [email or web address]
== END ==
LOC: RAD 12:56
PROVIDERS: ATTEND Family Medicine
DX: M50.323 Other cervical disc degeneration at C6-C7 level (principal); M48.02 Spinal stenosis, cervical region; M25.531 Pain in right wrist; M25.532 Pain in left wrist; M25.561 Pain in right knee; M25.562 Pain in left knee
CPT/HCPCS: 72050

== ENCOUNTER 2019-09-07 18:52 | Inpatient (IN) | payer MEDICAID ==
[2019-09-07] MEDS ORDERED: METHYLPREDNISOLONE INJ 40 MG/1 ML SDV IV ONE (19:59)
--- NOTE | 2019-09-07 20:00 | ER Document Report ---
ED General - General Chief Complaint: Breathing Difficulty Stated Complaint: DIFFICULTY BREATHING Time Seen by Provider: 09/07/19 19:49 Primary Care Provider: FELIPA COFFEY DO [Primary Care Provider] - Follow up as needed Notes: 64-year-old lady with chronic COPD chronic bronchitis on multiple medications and home oxygen presents with worsening shortness of breath cough sputum for about a day and a half, worse with exertion. Chest pain with breathing. No fevers. No COVID exposure. Has not had a cover test. Symptoms are moderate, worsening associated with fatigue. TRAVEL OUTSIDE OF THE [place] IN LAST 30 DAYS: No - Related Data Allergies/Adverse Reactions: codeine [Codeine] Allergy (Severe, Verified 11/19/16 08:49) Asthma aspirin [Aspirin] Adverse Reaction (Mild, Verified 11/19/16 08:49) Nausea Past Medical History - General Information source: Patient - Social History Smoking Status: Current Every Day Smoker Smoking Education Provided: Yes - The patient ED visit today was directly related to their abuse of tobacco. Family History: COPD, Hypertension. denies: CAD, DM, Malignancy - Past Medical History Cardiac Medical History: Reports: Hx Hypercholesterolemia Denies: Hx Atrial Fibrillation, Hx Congestive Heart Failure, Hx Coronary Artery Disease, Hx DVT, Hx Heart Attack, Hx Hypertension, Hx Peripheral Vascular Disease, Hx Pulmonary Embolism Pulmonary Medical History: Reports: Hx Asthma, Hx Bronchitis, Hx COPD, Hx Pneumonia, Hx Respiratory Failure - Chronic hypoxic respiratory failure Neurological Medical History: Denies: Hx Cerebrovascular Accident, Hx Seizures Endocrine Medical History: Denies: Hx Diabetes Mellitus Type 1, Hx Diabetes Mellitus Type 2, Hx Hyperthyroidism, Hx Hypothyroidism Renal/ Medical History: Denies: Hx Peritoneal Dialysis GI Medical History: Reports: Hx Gastroesophageal Reflux Disease. Denies: Hx Cirrhosis, Hx Crohn's Disease, Hx Hepatitis, Hx Ulcerative Colitis Musculoskeletal Medical History: Reports Hx Arthritis, Denies Hx Gout, Reports Hx Musculoskeletal Deformity Skin Medical History: Denies Hx Eczema, Denies Hx Psoriasis Psychiatric Medical History: Reports: Hx Bipolar Disorder, Hx Depression, Hx Schizophrenia Infectious Medical History: Denies: Hx Hepatitis Past Surgical History: Reports: Hx Gynecologic Surgery - uterine scraping, Hx Tubal Ligation - Immunizations Immunizations up to date: Yes Hx Diphtheria, Pertussis, Tetanus Vaccination: Yes - UTD Hx Pneumococcal Vaccination: 11/09/16 Review of Systems - Review of Systems Notes: REVIEW OF SYSTEMS GEN: Denies fever, chills, weight loss ENT: Denies sore throat, nasal discharge, ear pain EYES: Denies blurry vision, eye pain, discharge CV: PI RESP: PI GI: Denies abdominal pain, nausea, vomiting, diarrhea MSK: Denies joint pain/swelling, edema, SKIN: Denies rash, skin lesions LYMPH: Denies swollen glands/lymph nodes NEURO: Denies headache, focal weakness or numbness, dizziness PSYCH: Denies depression, suicidal or homicidal ideation PHYSICAL EXAMINATION General: Much older than stated age Head: Atraumatic, normocephalic ENT: Mouth edentulous, oropharynx moist, no exudates or tonsillar enlargement Eyes: Conjunctiva normal, pupils equal, lids normal Neck: No JVD, supple, no guarding CVS: Normal rate, regular rhythm, no murmurs Resp: Breath sounds bilaterally with expiratory wheezing and mild tachypnea GI: Nondistended, soft, no tenderness to palpation, no rebound or guarding Ext: No deformities, no edema, normal range of motion in upper and lower ext Back: No CVA or midline TTP Skin: No rash, warm Lymphatic: No lymphadeopathy noted Neuro: Awake, alert. Face symmetric. GCS 15. Physical Exam - Vital signs Vitals: Temp Pulse Resp BP Pulse Ox 100.2 F 85 16 128/65 H 90 L 09/07/19 19:01 09/07/19 19:01 09/07/19 19:01 09/07/19 19:01 09/07/19 19:01 Course - Re-evaluation Re-evalutation: 09/07/19 20:07 Presents with chest pain shortness of breath with increased pedal production pneumonia versus COVID versus COPD exacerbation versus some combination of the above Chest x-ray cover test labs We will start see x-ray to see if this may be COVID Not febrile at this time and does not appear septic 09/07/19 22:33 X-ray shows interstitial disease white count is elevated otherwise labs are essentially normal. Remains quite dyspneic and is very tachypneic on even sitting in bed. Steroids been given neb is been given. COVID is pending but will admit for COPD. Given doxy given increased pedal production Discussed with Dr. Morris who agrees with admission - Vital Signs Vital signs: Temp Pulse Resp BP Pulse Ox 100.2 F 85 25 H 128/65 H 93 09/07/19 19:30 09/07/19 19:01 09/07/19 21:13 09/07/19 19:01 09/07/19 21:13 - Laboratory Result Diagrams: 09/07/19 20:50 09/07/19 20:50 Laboratory results interpreted by me: 09/07/19 09/07/19 20:50 20:50 WBC 13.3 H RDW 14.1 H Lymph % (Auto) 5.4 L Absolute Neuts (auto) 11.8 H Seg Neutrophils % 88.6 H Sodium 136.2 L Glucose 131 H - Diagnostic Test Radiology reviewed: Image reviewed, Reports reviewed Discharge - Discharge Clinical Impression: Pneumonia, organism unspecified Condition: Good Disposition: ADMITTED INPATIENT Admitting Provider: Arturo (Hospitalist) Unit Admitted: Medical Floor Referrals: FELIPA COFFEY DO [Primary Care Provider] - Follow up as needed
--- NOTE | 2019-09-07 20:35 | RADIOLOGY REPORT (SQ) ---
EXAM DESCRIPTION: CLINICAL HISTORY: 64 years Female SOB COMPARISON: 05/17/2019 TECHNIQUE: Upright portable chest x-ray. FINDINGS: cardiomediastinal silhouette is not enlarged. Mild hyperinflation. Mild chronic interstitial prominence. No suspicious acute lung pleural bone abnormalities. IMPRESSION: Hyperinflation. Mild chronic interstitial prominence. No obvious acute findings.
[2019-09-07] MEDS ORDERED: IPRATROPIUM/ALBUTEROL 0.5-2.5 MG/3 ML AMPUL NEB ONE (20:52)
[2019-09-07] MEDS ORDERED: DOXYCYCLINE HYCLATE 100 MG TABLET PO ONE (20:52)
[2019-09-07 21:22] LABS: ABSOLUTE LYMPHOCYTES (AUTO) 0.7 10^3/uL (0.5-4.7); ABSOLUTE MONOCYTES (AUTO) 0.8 10^3/uL (0.1-1.4); ABSOLUTE NEUT (AUTO) 11.8 10^3/uL (1.7-8.2); BASOPHILS % (AUTO) 0.1 % (0-2); EOSINOPHILS % (AUTO) 0.1 % (0-6); HEMATOCRIT 43.3 % (36.0-47.0); HEMOGLOBIN 14.7 g/dL (12.0-15.5); LYMPHOCYTES % (AUTO) 5.4 % (13-45); MEAN CORPUSCULAR HEMOGLOBIN 28.8 pg (27.0-33.4); MEAN CORPUSCULAR VOLUME 85 fl (80-97); MONOCYTES % (AUTO) 5.8 % (3-13); PLATELET COUNT 222 10^3/uL (150-450); RED CELL DISTRIBUTION WIDTH 14.1 % (11.5-14.0); SEGMENTED NEUTROPHILS % (AUTO) 88.6 % (42-78); TOTAL CELLS COUNTED % (AUTO) 100 %; WHITE BLOOD COUNT 13.3 10^3/uL (4.0-10.5)
--- NOTE | 2019-09-07 21:34 | EKG REPORT ---
SEVERITY:- NORMAL ECG - SINUS RHYTHM : Confirmed by: Ramon Sethi MD 07-Sep-2019 21:33:48
[2019-09-07 21:36] LABS: INTERNATIONAL RATION (INR) 1.07; PROTHROMBIN TIME 13.9 SEC (11.4-15.4)
[2019-09-07 21:40] LABS: ALBUMIN 4.4 g/dL (3.5-5.0); ALKALINE PHOSPHATASE 77 U/L (38-126); ANION GAP 9 (5-19); ASPARTATE AMINO TRANSFERASE 22 U/L (14-36); BILIRUBIN,TOTAL 0.7 mg/dL (0.2-1.3); BLOOD UREA NITROGEN 17 mg/dL (7-20); CALCIUM 9.8 mg/dL (8.4-10.2); CARBON DIOXIDE 25 mmol/L (22-30); CHLORIDE 102 mmol/L (98-107); GLUCOSE 131 mg/dL (75-110); POTASSIUM 4.2 mmol/L (3.6-5.0); TOTAL PROTEIN 8.1 g/dL (6.3-8.2)
[2019-09-07] MEDS ORDERED: IPRATROPIUM/ALBUTEROL 0.5-2.5 MG/3 ML AMPUL NEB PRN (22:28)
[2019-09-07] MEDS ORDERED: CEFTRIAXONE 1 GM/D5W RTU 1 GM/50 ML RTUPB IV ONE (23:00)
[2019-09-07] MEDS ORDERED: LEVOFLOXACIN 750 MG/D5W RTU 750 MG/150 ML RTUPB IV ONE (23:00)
[2019-09-07] MEDS ORDERED: ASCORBIC ACID 500 MG TABLET PO SCH (23:30)
[2019-09-08 00:04] LABS: C-REACTIVE PROTEIN 68.8 mg/L (<10.0)
[2019-09-08] MEDS: ZINC SULFATE 220 MG CAPSULE PO SCH ×2 (01:24→09:15)
[2019-09-08] MEDS: IPRATROPIUM/ALBUTEROL 0.5-2.5 MG/3 ML AMPUL NEB SCH ×2 (01:38→09:12)
[2019-09-08 03:37] LABS: HEMATOCRIT 40.7 % (36.0-47.0); HEMOGLOBIN 14.2 g/dL (12.0-15.5); MEAN CORPUSCULAR HEMOGLOBIN 29.6 pg (27.0-33.4); MEAN CORPUSCULAR HGB CONC 34.8 g/dL (32.0-36.0); MEAN CORPUSCULAR VOLUME 85 fl (80-97); PLATELET COUNT 220 10^3/uL (150-450); RED CELL DISTRIBUTION WIDTH 14.1 % (11.5-14.0); WHITE BLOOD COUNT 9.7 10^3/uL (4.0-10.5)
[2019-09-08 03:48] LABS: ANION GAP 12 (5-19); BLOOD UREA NITROGEN 19 mg/dL (7-20); CALCIUM 9.5 mg/dL (8.4-10.2); CARBON DIOXIDE 20 mmol/L (22-30); CHLORIDE 105 mmol/L (98-107); GLUCOSE 193 mg/dL (75-110)
--- NOTE | 2019-09-08 03:48 | PDOC H&P ---
History of Present Illness Admission Date/PCP: 09/07/19 22:35 FELIPA OCFFEY DO Patient complains of: Shortness of breath History of Present Illness: DUARTE TAN is a 64 year old female with a past medical history of bipolar, oxygen dependent COPD, chronic bronchitis, sinusitis, depression, ongoing tobacco dependence. She presents with 3 days of productive cough of purulent sputum, rhinorrhea developing fever prompting evaluation emergency department. She is found to have fever, hypoxia, tachypnea, leukocytosis with lymphopenia and right-sided rhonchi. She started on empiric antibiotics for pneumonia and referred to the hospitalist for admission. She denies known infectious contact or contact of COVID. She denies recent antibiotic use. Past Medical History Cardiac Medical History: Reports: Hyperlipidema Denies: Atrial Fibrillation, Congestive Heart Failure, Coronary Artery Disease, DVT, Myocardial Infarction, Hypertension, Peripheral Vascular Disease, Pulmonary Embolism Pulmonary Medical History: Reports: Asthma, Bronchitis, Chronic Obstructive Pulmonary Disease (COPD), Pneumonia, Respiratory Failure - Chronic hypoxic respiratory failure Neurological Medical History: Denies: Seizures Endocrine Medical History: Denies: Diabetes Mellitus Type 1, Diabetes Mellitus Type 2, Hyperthyroidism, Hypothyroidism GI Medical History: Reports: Gastroesophageal Reflux Disease Denies: Cirrhosis, Crohn's Disease, Hepatitis, Ulcerative Colitis Musculoskeltal Medical History: Reports: Arthritis Denies: Gout Skin Medical History: Denies: Eczema, Psoriasis Psychiatric Medical History: Reports: Bipolar Disorder, Depression Hematology: Reports: Anemia Denies: Bleeding Tendencies Past Surgical History Past Surgical History: Reports: Tubal Ligation Social History Information Source: Patient Smoking Status: Current Every Day Smoker Frequency of Alcohol Use: Occasional Hx Recreational Drug Use: No Drugs: None Hx Prescription Drug Abuse: No - Advance Directive Resuscitation Status: Full Code Family History Family History: COPD, Hypertension. denies: CAD, DM, Malignancy Parental Family History Reviewed: Yes Children Family History Reviewed: Yes Sibling(s) Family History Reviewed.: Yes Medication/Allergy Home Medications: Albuterol Sulfate [Proair HFA Inhalation Aerosol 8.5 gm MDI] 2 puff IH Q4HP PRN 05/18/19 Aripiprazole 20 mg PO QHS 05/18/19 Carbidopa/Levodopa [Sinemet 25-100 mg Tablet] 1 each PO QHS 05/18/19 Esomeprazole Magnesium 40 mg PO QAM 05/18/19 Fluticasone/Salmeterol [Advair 500-50 Diskus 14 Dose/Diskus] 1 puff IH Q12 05/18/19 Gabapentin [Neurontin 300 mg Capsule] 300 mg PO QID 05/18/19 Loratadine [Claritin 10 mg Tablet] 10 mg PO DAILY 05/18/19 Meloxicam [Mobic 15 mg Tablet] 15 mg PO DAILY 05/18/19 Methocarbamol [Robaxin 750 mg Tablet] 750 mg PO Q6HP PRN 05/18/19 Sertraline HCl 150 mg PO DAILY 05/18/19 Trazodone HCl 225 mg PO QHS 05/18/19 Acetaminophen [Tylenol 325 mg Tablet] 650 mg PO Q4HP PRN tablet 05/21/19 Guaifenesin [Mucinex Sr 600 mg Tablet.sa] 600 mg PO Q12 #14 tablet.sa 05/21/19 Nicotine [Nicoderm 21 mg/24 Hr Transderm Patch] 1 each TD DAILYP PRN #30 patch.td24 05/21/19 Prednisone [Deltasone 20 mg Tablet] 60 mg PO DAILY #12 tablet 05/21/19 Allergies/Adverse Reactions: codeine [Codeine] Allergy (Severe, Verified 11/19/16 08:49) Asthma aspirin [Aspirin] Adverse Reaction (Mild, Verified 11/19/16 08:49) Nausea Review of Systems Constitutional: PRESENT: as per HPI, fatigue, fever(s), weakness. ABSENT: weight gain Eyes: PRESENT: as per HPI Ears: ABSENT: hearing changes Cardiovascular: PRESENT: as per HPI, chest pain, dyspnea on exertion. ABSENT: palpitations Respiratory: PRESENT: as per HPI, cough, dyspnea, sputum. ABSENT: hemoptysis Gastrointestinal: ABSENT: abdominal pain, constipation, diarrhea, hematemesis, hematochezia, nausea, vomiting Genitourinary: ABSENT: dysuria, hematuria Musculoskeletal: ABSENT: joint swelling Integumentary: ABSENT: rash, wounds Neurological: ABSENT: abnormal gait, abnormal speech, confusion, dizziness, focal weakness, syncope Psychiatric: ABSENT: anxiety, depression, homidical ideation, suicidal ideation Endocrine: ABSENT: cold intolerance, heat intolerance, polydipsia, polyuria Hematologic/Lymphatic: ABSENT: easy bleeding, easy bruising Physical Exam Vital Signs: Temp Pulse Resp BP Pulse Ox 98.4 F 85 19 127/74 H 92 09/08/19 00:00 09/08/19 01:38 09/08/19 01:38 09/08/19 00:00 09/08/19 01:38 Intake & Output 09/06/19 09/07/19 09/08/19 11:59 11:59 11:59 Weight 144 kg General appearance: PRESENT: cooperative, disheveled, mild distress, obese, well-developed, well-nourished Head exam: PRESENT: atraumatic, normocephalic Eye exam: PRESENT: conjunctiva pink, EOMI, PERRLA. ABSENT: scleral icterus Ear exam: PRESENT: normal external ear exam Mouth exam: PRESENT: moist, tongue midline Neck exam: ABSENT: carotid bruit, JVD, lymphadenopathy, thyromegaly Respiratory exam: PRESENT: accessory muscle use, crackles, prolonged expiratory phas, retraction, rhonchi, tachypnea. ABSENT: chest wall tenderness, unlabored Cardiovascular exam: PRESENT: RRR. ABSENT: diastolic murmur, rubs, systolic murmur Pulses: PRESENT: normal dorsalis pedis pul Vascular exam: PRESENT: normal capillary refill GI/Abdominal exam: PRESENT: normal bowel sounds, soft. ABSENT: distended, guarding, mass, organolmegaly, rebound, tenderness Rectal exam: PRESENT: deferred Extremities exam: PRESENT: full ROM. ABSENT: calf tenderness, clubbing, pedal edema Neurological exam: PRESENT: alert, awake, oriented to person, oriented to place, oriented to time, oriented to situation, CN II-XII grossly intact. ABSENT: motor sensory deficit Psychiatric exam: PRESENT: appropriate affect, normal mood. ABSENT: homicidal ideation, suicidal ideation Skin exam: PRESENT: dry, intact, warm. ABSENT: cyanosis, rash Results Laboratory Results: 09/07/19 09/07/19 09/07/19 20:50 20:50 20:50 WBC 13.3 H RBC 5.10 Hgb 14.7 Hct 43.3 MCV 85 MCH 28.8 MCHC 34.0 RDW 14.1 H Plt Count 222 Seg Neutrophils % 88.6 H Sodium 136.2 L Potassium 4.2 Chloride 102 Carbon Dioxide 25 Anion Gap 9 BUN 17 Creatinine 0.79 Est GFR ( Amer) > 60 Glucose 131 H Lactic Acid 0.8 Calcium 9.8 Ferritin Total Bilirubin 0.7 AST 22 Alkaline Phosphatase 77 C-Reactive Protein Total Protein 8.1 Albumin 4.4 09/07/19 09/08/19 20:50 00:34 WBC RBC Hgb Hct MCV MCH MCHC RDW Plt Count Seg Neutrophils % Sodium Potassium Chloride Carbon Dioxide Anion Gap BUN Creatinine Est GFR ( Amer) Glucose Lactic Acid 1.4 Calcium Ferritin 178.00 Total Bilirubin AST Alkaline Phosphatase C-Reactive Protein 68.8 H Total Protein Albumin 09/07/19 09/07/19 20:50 20:50 Creatine Kinase 239 H Troponin I < 0.012 Impressions: Chest X-Ray 09/07/19 19:59 IMPRESSION: Hyperinflation. Mild chronic interstitial prominence. No obvious acute findings. Assessment and Plan - Diagnosis (1) Pneumonia, organism unspecified Is this a current diagnosis for this admission?: Yes Plan: Pneumonia care set deployed, empiric antibiotics, follow-up CBC, blood culture and COVID testing. (2) Maxillary sinusitis Qualifiers: Recurrence: recurrent Is this a current diagnosis for this admission?: Yes Plan: Flonase, empiric antibiotics, (3) Acute exacerbation of chronic obstructive pulmonary disease (COPD) Is this a current diagnosis for this admission?: Yes Plan: Flutter valve, incentive spirometry, supplemental oxygen, BiPAP PRN (4) Bipolar disorder Qualifiers: Is this a current diagnosis for this admission?: Yes Plan: Follow-up medication reconciliation. (5) Gastroesophageal reflux disease Qualifiers: Is this a current diagnosis for this admission?: Yes Plan: Proton pump inhibitor. - Time Time Spent with patient: 25-34 minutes - Inpatient Certification Medical Necessity: Need Close Monitoring Due to Risk of Patient Decompensation
[2019-09-08] MEDS: HEPARIN SOD (PORCINE) 5,000 UNIT/ML 1 ML VIAL SUBCUT SCH ×3 (05:40→21:18)
[2019-09-08] MEDS: ASCORBIC ACID 500 MG TABLET PO SCH (09:16)
[2019-09-08] MEDS: CHOLECALCIFEROL (D3) 1,000 UNIT (25 MCG) TABLET PO SCH (09:22)
[2019-09-08] MEDS ORDERED: AZITHROMYCIN INJ 500 MG VIAL IV ONE (09:30)
[2019-09-08] MEDS ORDERED: AZITHROMYCIN 500 MG in DEXTROSE 5%-WATER 250 ML IV ONE (10:00)
[2019-09-08] MEDS ORDERED: ONDANSETRON HCL INJ/PF 4 MG/2 ML SDV IV PRN (11:04)
[2019-09-08] MEDS: ALBUTEROL SULFATE HFA (90 MCG/PUFF) 200 PUFF/8.5 GM MDI IH SCH ×3 (11:14→23:48)
[2019-09-08] MEDS ORDERED: ALBUTEROL SULFATE HFA (90 MCG/PUFF) 8 GM MDI IH SCH (12:00)
[2019-09-08] MEDS ORDERED: GLYCERIN/WITCH HAZEL LEAF 1 EACH MED..WIPE TP PRN (12:48)
[2019-09-08] MEDS ORDERED: TIZANIDINE HCL 4 MG TABLET PO PRN (17:44)
[2019-09-08] MEDS ORDERED: METHOCARBAMOL 750 MG TABLET PO PRN (17:44)
[2019-09-08] MEDS ORDERED: HYDROCODONE/ACETAMINOPHEN 5-325 MG TABLET PO PRN (17:44)
[2019-09-08] MEDS ORDERED: CELECOXIB 200 MG CAPSULE PO PRN (17:44)
--- NOTE | 2019-09-08 17:56 | PDOC PROGRESS REPORT ---
Subjective Progress Note for:: 09/08/19 Subjective:: Patient has some shortness of breath and cough today. Reason For Visit: COPD JUAN PNEUMONIA Physical Exam Vital Signs: Temp Pulse Resp BP Pulse Ox 97.4 F 73 22 H 134/55 H 100 09/08/19 16:49 09/08/19 16:49 09/08/19 16:49 09/08/19 16:49 09/08/19 16:49 Intake & Output 09/07/19 09/08/19 09/09/19 06:59 06:59 06:59 Intake Total 120 610 Balance 120 610 Weight 64.7 kg General appearance: PRESENT: no acute distress, cooperative Neck exam: ABSENT: JVD Respiratory exam: PRESENT: symmetrical, unlabored, wheezes. ABSENT: tachypnea Cardiovascular exam: PRESENT: RRR, +S1, +S2. ABSENT: tachycardia GI/Abdominal exam: PRESENT: soft. ABSENT: rebound, rigid, tenderness Neurological exam: PRESENT: alert, awake, oriented to person, oriented to place Results Laboratory Results: 09/08/19 03:27 09/08/19 03:27 09/07/19 09/07/19 09/07/19 20:50 20:50 20:50 WBC 13.3 H RBC 5.10 Hgb 14.7 Hct 43.3 MCV 85 MCH 28.8 MCHC 34.0 RDW 14.1 H Plt Count 222 Seg Neutrophils % 88.6 H Sodium 136.2 L Potassium 4.2 Chloride 102 Carbon Dioxide 25 Anion Gap 9 BUN 17 Creatinine 0.79 Est GFR ( Amer) > 60 Glucose 131 H Lactic Acid 0.8 Calcium 9.8 Ferritin Total Bilirubin 0.7 AST 22 Alkaline Phosphatase 77 C-Reactive Protein Total Protein 8.1 Albumin 4.4 09/07/19 09/08/19 09/08/19 20:50 00:34 03:27 WBC RBC Hgb Hct MCV MCH MCHC RDW Plt Count Seg Neutrophils % Sodium Potassium Chloride Carbon Dioxide Anion Gap BUN Creatinine Est GFR ( Amer) Glucose Lactic Acid 1.4 2.4 H Calcium Ferritin 178.00 Total Bilirubin AST Alkaline Phosphatase C-Reactive Protein 68.8 H Total Protein Albumin 09/08/19 09/08/19 03:27 03:27 WBC 9.7 RBC 4.80 Hgb 14.2 Hct 40.7 MCV 85 MCH 29.6 MCHC 34.8 RDW 14.1 H Plt Count 220 Seg Neutrophils % Sodium 137.0 Potassium 4.0 Chloride 105 Carbon Dioxide 20 L Anion Gap 12 BUN 19 Creatinine 0.75 Est GFR ( Amer) > 60 Glucose 193 H Lactic Acid Calcium 9.5 Ferritin Total Bilirubin AST Alkaline Phosphatase C-Reactive Protein Total Protein Albumin 09/07/19 09/07/19 20:50 20:50 Creatine Kinase 239 H Troponin I < 0.012 Impressions: Chest X-Ray 09/07/19 19:59 IMPRESSION: Hyperinflation. Mild chronic interstitial prominence. No obvious acute findings. Assessment and Plan - Diagnosis (1) Pneumonia, organism unspecified Is this a current diagnosis for this admission?: Yes Plan: Patient presented with low-grade fever shortness of breath with cough. I reviewed chest x-ray image which shows the possibility of early developing right lower lobe pneumonia. Patient is on coverage with broad-spectrum antibiotics with ceftriaxone and azithromycin. COVID-19 test is pending. (2) Acute exacerbation of chronic obstructive pulmonary disease (COPD) Is this a current diagnosis for this admission?: Yes Plan: Given the patient is currently on the investigation for COVID-19, I discontinued nebulizer treatments and place patient on scheduled as well as as needed albuterol inhalers. I will also start patient on dexamethasone. LABA/ICS. (3) Suspected COVID-19 virus infection Is this a current diagnosis for this admission?: Yes Plan: Currently under investigation for COVID-19. Test has been done but result is pending. Patient placed on vitamin supplements. (4) Gastroesophageal reflux disease Qualifiers: Is this a current diagnosis for this admission?: Yes Plan: Proton pump inhibitor. (5) Maxillary sinusitis Qualifiers: Recurrence: recurrent Is this a current diagnosis for this admission?: Yes - Time Time Spent with patient: 15-24 minutes
[2019-09-08] MEDS: GABAPENTIN 300 MG CAPSULE PO SCH ×2 (18:58→21:18)
[2019-09-08] MEDS: CEFTRIAXONE 1 GM/D5W RTU 1 GM/50 ML RTUPB IV SCH (21:17)
[2019-09-08] MEDS: ARIPIPRAZOLE 5 MG TABLET PO SCH (21:18)
[2019-09-08] MEDS: CARBIDOPA/LEVODOPA 25-100 MG TABLET PO SCH (21:18)
[2019-09-08] MEDS: DEXAMETHASONE 4 MG TABLET PO SCH (21:18)
[2019-09-08] MEDS ORDERED: LEVOFLOXACIN 750 MG/D5W RTU 750 MG/150 ML RTUPB IV SCH (22:00)
[2019-09-09] MEDS: PANTOPRAZOLE SODIUM 40 MG TABLET.DR PO SCH (05:23)
[2019-09-09] MEDS: DEXAMETHASONE 4 MG TABLET PO SCH ×3 (05:23→21:44)
[2019-09-09] MEDS: ALBUTEROL SULFATE HFA (90 MCG/PUFF) 200 PUFF/8.5 GM MDI IH SCH ×3 (05:23→17:08)
[2019-09-09] MEDS: HEPARIN SOD (PORCINE) 5,000 UNIT/ML 1 ML VIAL SUBCUT SCH ×3 (05:24→21:45)
[2019-09-09 07:00] LABS: ABSOLUTE LYMPHOCYTES (AUTO) 1.5 10^3/uL (0.5-4.7); ABSOLUTE MONOCYTES (AUTO) 0.7 10^3/uL (0.1-1.4); ABSOLUTE NEUT (AUTO) 6.1 10^3/uL (1.7-8.2); HEMOGLOBIN 13.5 g/dL (12.0-15.5); LYMPHOCYTES % (AUTO) 17.7 % (13-45); MEAN CORPUSCULAR HEMOGLOBIN 29.1 pg (27.0-33.4); MEAN CORPUSCULAR HGB CONC 33.9 g/dL (32.0-36.0); MEAN CORPUSCULAR VOLUME 86 fl (80-97); MONOCYTES % (AUTO) 8.2 % (3-13); PLATELET COUNT 259 10^3/uL (150-450); RED BLOOD COUNT 4.66 10^6/uL (3.72-5.28); RED CELL DISTRIBUTION WIDTH 14.4 % (11.5-14.0); SEGMENTED NEUTROPHILS % (AUTO) 74.1 % (42-78); TOTAL CELLS COUNTED % (AUTO) 100 %; WHITE BLOOD COUNT 8.2 10^3/uL (4.0-10.5)
[2019-09-09 07:18] LABS: ANION GAP 8 (5-19); BLOOD UREA NITROGEN 21 mg/dL (7-20); CALCIUM 9.4 mg/dL (8.4-10.2); CARBON DIOXIDE 25 mmol/L (22-30); CHLORIDE 106 mmol/L (98-107); GLUCOSE 123 mg/dL (75-110)
[2019-09-09] MEDS: METFORMIN HCL 500 MG TABLET PO SCH (09:06)
[2019-09-09] MEDS: ASPIRIN 81 MG TABLET, ENT COATED PO SCH (09:06)
[2019-09-09] MEDS: ZINC SULFATE 220 MG CAPSULE PO SCH (09:06)
[2019-09-09] MEDS: ASCORBIC ACID 500 MG TABLET PO SCH (09:06)
[2019-09-09] MEDS: SERTRALINE HCL 50 MG TABLET PO SCH (09:07)
[2019-09-09] MEDS: GABAPENTIN 300 MG CAPSULE PO SCH ×4 (09:07→21:45)
[2019-09-09] MEDS: LORATADINE 10 MG TABLET PO SCH (09:07)
[2019-09-09] MEDS: CHOLECALCIFEROL (D3) 1,000 UNIT (25 MCG) TABLET PO SCH (09:07)
[2019-09-09] MEDS: FLUTICASONE/VILANTEROL 200-25 MCG/DOSE IH SCH (09:08)
[2019-09-09] MEDS: AZITHROMYCIN 250 MG in DEXTROSE 5%-WATER 250 ML IV SCH (09:09)
[2019-09-09] MEDS ORDERED: AZITHROMYCIN INJ 500 MG VIAL IV SCH (10:00)
[2019-09-09] MEDS ORDERED: AZITHROMYCIN 250 MG in DEXTROSE 5%-WATER 250 ML IV SCH (10:00)
--- NOTE | 2019-09-09 16:56 | PDOC PROGRESS REPORT ---
Subjective Progress Note for:: 09/09/19 Subjective:: Patient endorses feeling better in terms of her breathing. She also feels better overall than yesterday. Denies chest pains. Reason For Visit: COPD JUAN PNEUMONIA Physical Exam Vital Signs: Temp Pulse Resp BP Pulse Ox 97.9 F 69 18 109/66 98 09/09/19 16:23 09/09/19 16:23 09/09/19 16:23 09/09/19 16:23 09/09/19 16:23 Intake & Output 09/08/19 09/09/19 09/10/19 06:59 06:59 06:59 Intake Total 120 1360 490 Balance 120 1360 490 Weight 64.7 kg 64.9 kg General appearance: PRESENT: no acute distress, cooperative Head exam: PRESENT: normocephalic Neck exam: ABSENT: JVD Respiratory exam: PRESENT: symmetrical, unlabored, wheezes. ABSENT: tachypnea Cardiovascular exam: PRESENT: RRR, +S1, +S2. ABSENT: tachycardia Musculoskeletal exam: PRESENT: ambulatory Neurological exam: PRESENT: alert, awake, oriented to person, oriented to place, oriented to time, oriented to situation Psychiatric exam: ABSENT: agitated, anxious Focused psych exam: ABSENT: pressured speech Skin exam: ABSENT: jaundice Results Laboratory Results: 09/09/19 06:37 09/09/19 06:37 09/09/19 09/09/19 09/09/19 06:37 06:37 06:37 WBC 8.2 RBC 4.66 Hgb 13.5 Hct 40.0 MCV 86 MCH 29.1 MCHC 33.9 RDW 14.4 H Plt Count 259 Seg Neutrophils % 74.1 Sodium 138.5 Potassium 5.0 Chloride 106 Carbon Dioxide 25 Anion Gap 8 BUN 21 H Creatinine 0.78 Est GFR ( Amer) > 60 Glucose 123 H Lactic Acid 0.6 L Calcium 9.4 09/07/19 09/07/19 20:50 20:50 Creatine Kinase 239 H Troponin I < 0.012 Impressions: Chest X-Ray 09/07/19 19:59 IMPRESSION: Hyperinflation. Mild chronic interstitial prominence. No obvious acute findings. Assessment and Plan - Diagnosis (1) Pneumonia, organism unspecified Is this a current diagnosis for this admission?: Yes Plan: Patient presented with low-grade fever shortness of breath with cough. I reviewed chest x-ray image which shows the possibility of early developing right lower lobe pneumonia. Patient is on coverage with broad-spectrum antibiotics with ceftriaxone and azithromycin. COVID-19 test is pending. (2) Acute exacerbation of chronic obstructive pulmonary disease (COPD) Is this a current diagnosis for this admission?: Yes Plan: Given the patient is currently on the investigation for COVID-19, I discontinued nebulizer treatments and place patient on scheduled as well as as needed albuterol inhalers. Continue dexamethasone. LABA/ICS. Wheezing seems more improved as compared to yesterday. No need for BiPAP at this point as she is not encephalopathic and review of metabolic panel shows no evidence of CO2 retention. I will discontinue order. (3) Suspected COVID-19 virus infection Is this a current diagnosis for this admission?: Yes Plan: Currently under investigation for COVID-19. Test has been done but result is pending. Patient placed on vitamin supplements. (4) Gastroesophageal reflux disease Qualifiers: Is this a current diagnosis for this admission?: Yes Plan: Proton pump inhibitor. (5) Maxillary sinusitis Qualifiers: Recurrence: recurrent Is this a current diagnosis for this admission?: Yes Plan: Flonase, empiric antibiotics, - Time Time Spent with patient: Less than 15 minutes
[2019-09-09] MEDS: ARIPIPRAZOLE 5 MG TABLET PO SCH (21:44)
[2019-09-09] MEDS: CARBIDOPA/LEVODOPA 25-100 MG TABLET PO SCH (21:44)
[2019-09-09] MEDS: CEFTRIAXONE 1 GM/D5W RTU 1 GM/50 ML RTUPB IV SCH (21:44)
[2019-09-10] MEDS: ALBUTEROL SULFATE HFA (90 MCG/PUFF) 200 PUFF/8.5 GM MDI IH SCH ×2 (00:54→05:23)
[2019-09-10] MEDS: PANTOPRAZOLE SODIUM 40 MG TABLET.DR PO SCH (05:22)
[2019-09-10] MEDS: DEXAMETHASONE 4 MG TABLET PO SCH ×2 (05:22→13:14)
[2019-09-10] MEDS: HEPARIN SOD (PORCINE) 5,000 UNIT/ML 1 ML VIAL SUBCUT SCH ×3 (05:23→21:07)
[2019-09-10] MEDS: METFORMIN HCL 500 MG TABLET PO SCH (08:11)
[2019-09-10] MEDS: ACETAMINOPHEN 325 MG TABLET PO PRN ×2 (08:12→23:36)
[2019-09-10] MEDS: AZITHROMYCIN 250 MG in DEXTROSE 5%-WATER 250 ML IV SCH (09:33)
[2019-09-10] MEDS: SERTRALINE HCL 50 MG TABLET PO SCH (09:38)
[2019-09-10] MEDS: ASCORBIC ACID 500 MG TABLET PO SCH (09:38)
[2019-09-10] MEDS: ASPIRIN 81 MG TABLET, ENT COATED PO SCH (09:39)
[2019-09-10] MEDS: GABAPENTIN 300 MG CAPSULE PO SCH ×4 (09:39→21:07)
[2019-09-10] MEDS: CHOLECALCIFEROL (D3) 1,000 UNIT (25 MCG) TABLET PO SCH (09:39)
[2019-09-10] MEDS: LORATADINE 10 MG TABLET PO SCH (09:39)
[2019-09-10] MEDS: FLUTICASONE/VILANTEROL 200-25 MCG/DOSE IH SCH (09:53)
[2019-09-10] MEDS: IPRATROPIUM/ALBUTEROL 0.5-2.5 MG/3 ML AMPUL NEB SCH ×3 (11:10→19:50)
[2019-09-10] MEDS: ZINC SULFATE 220 MG CAPSULE PO SCH (11:23)
--- NOTE | 2019-09-10 15:34 | PDOC PROGRESS REPORT ---
Subjective Progress Note for:: 09/10/19 Subjective:: Patient states she feels better today. Breathing has improved. Still feels a little bit tight in the chest. Denies any fever or chills. Reason For Visit: COPD JUAN PNEUMONIA Physical Exam Vital Signs: Temp Pulse Resp BP Pulse Ox 97.5 F 59 L 18 125/56 L 97 09/10/19 11:22 09/10/19 11:22 09/10/19 11:22 09/10/19 11:22 09/10/19 11:22 Intake & Output 09/09/19 09/10/19 09/11/19 06:59 06:59 06:59 Intake Total 1360 1340 486 Balance 1360 1340 486 Weight 64.9 kg 64.3 kg General appearance: PRESENT: no acute distress, cooperative Neck exam: ABSENT: JVD Respiratory exam: PRESENT: symmetrical, unlabored, wheezes. ABSENT: crackles, tachypnea Cardiovascular exam: PRESENT: RRR, +S1, +S2. ABSENT: tachycardia GI/Abdominal exam: PRESENT: soft. ABSENT: rebound, rigid, tenderness Neurological exam: PRESENT: alert, awake, oriented to person, oriented to place, oriented to time Results Laboratory Results: 09/09/19 06:37 09/09/19 06:37 09/07/19 09/07/19 20:50 20:50 Creatine Kinase 239 H Troponin I < 0.012 Impressions: Chest X-Ray 09/07/19 19:59 IMPRESSION: Hyperinflation. Mild chronic interstitial prominence. No obvious acute findings. Assessment and Plan - Diagnosis (1) Pneumonia, organism unspecified Is this a current diagnosis for this admission?: Yes Plan: Patient presented with low-grade fever shortness of breath with cough. I reviewed chest x-ray image which shows the possibility of early developing right lower lobe pneumonia. Patient is on coverage with broad-spectrum antibiotics with ceftriaxone and azithromycin. COVID-19 test is negative. (2) Acute exacerbation of chronic obstructive pulmonary disease (COPD) Is this a current diagnosis for this admission?: Yes Plan: Placed on albuterol nebulizers. Change steroids to prednisone. Frequent nebulizer treatments. Laba/ICS (3) Suspected COVID-19 virus infection Is this a current diagnosis for this admission?: Yes Plan: COVID-19 test negative. (4) Gastroesophageal reflux disease Qualifiers: Is this a current diagnosis for this admission?: Yes Plan: Proton pump inhibitor. (5) Maxillary sinusitis Qualifiers: Recurrence: recurrent Is this a current diagnosis for this admission?: Yes Plan: Flonase, empiric antibiotics, - Time Time Spent with patient: Less than 15 minutes
[2019-09-10] MEDS: PREDNISONE 20 MG TABLET PO SCH (16:01)
[2019-09-10] MEDS: ARIPIPRAZOLE 5 MG TABLET PO SCH (21:07)
[2019-09-10] MEDS: CEFTRIAXONE 1 GM/D5W RTU 1 GM/50 ML RTUPB IV SCH (21:07)
[2019-09-10] MEDS: CARBIDOPA/LEVODOPA 25-100 MG TABLET PO SCH (21:07)
[2019-09-11] MEDS: IPRATROPIUM/ALBUTEROL 0.5-2.5 MG/3 ML AMPUL NEB SCH ×2 (02:20→07:49)
[2019-09-11] MEDS: HEPARIN SOD (PORCINE) 5,000 UNIT/ML 1 ML VIAL SUBCUT SCH ×2 (06:13→13:25)
[2019-09-11] MEDS: PANTOPRAZOLE SODIUM 40 MG TABLET.DR PO SCH (06:13)
[2019-09-11] MEDS: METFORMIN HCL 500 MG TABLET PO SCH (08:47)
[2019-09-11] MEDS: SERTRALINE HCL 50 MG TABLET PO SCH (09:40)
[2019-09-11] MEDS: AZITHROMYCIN 250 MG in DEXTROSE 5%-WATER 250 ML IV SCH (09:40)
[2019-09-11] MEDS: ASPIRIN 81 MG TABLET, ENT COATED PO SCH (09:40)
[2019-09-11] MEDS: FLUTICASONE/VILANTEROL 200-25 MCG/DOSE IH SCH (09:40)
[2019-09-11] MEDS: PREDNISONE 20 MG TABLET PO SCH (09:40)
[2019-09-11] MEDS: LORATADINE 10 MG TABLET PO SCH (09:40)
[2019-09-11] MEDS: GABAPENTIN 300 MG CAPSULE PO SCH ×2 (09:40→13:18)
--- NOTE | 2019-09-11 11:42 | PDOC DISCHARGE SUMMARY ---
Impression - Admit/DC Date/PCP Admission Date/Primary Care Provider: 09/07/19 22:35 FELIPA COFFEY DO Discharge Date: 09/11/19 - Discharge Diagnosis (1) Pneumonia, organism unspecified Is this a current diagnosis for this admission?: Yes (2) Acute exacerbation of chronic obstructive pulmonary disease (COPD) Is this a current diagnosis for this admission?: Yes (3) Gastroesophageal reflux disease Is this a current diagnosis for this admission?: Yes (4) Maxillary sinusitis Is this a current diagnosis for this admission?: Yes - Additional Information Resuscitation Status: Full Code Discharge Diet: As Tolerated Referrals: KAY NOLASCO MD [COMMUNITY BASED STAFF] - FELIPA COFFEY DO [Primary Care Provider] - Follow up as needed Prescriptions: Cefdinir 300 mg PO Q12 4 Days #8 capsule Prednisone [Deltasone 20 mg Tablet] 40 mg PO DAILY 3 Days Home Medications: Albuterol Sulfate [Proair HFA Inhalation Aerosol 8.5 gm MDI] 2 puff IH Q4HP PRN 05/18/19 Aripiprazole 20 mg PO QHS 05/18/19 Carbidopa/Levodopa [Sinemet 25-100 mg Tablet] 1 each PO QHS 05/18/19 Esomeprazole Magnesium 40 mg PO Q6AM 05/18/19 Fluticasone/Salmeterol [Advair 500-50 Diskus 14 Dose/Diskus] 1 puff IH Q12 05/18/19 Gabapentin [Neurontin 300 mg Capsule] 300 mg PO QID 05/18/19 Loratadine [Claritin 10 mg Tablet] 10 mg PO DAILY 05/18/19 Meloxicam [Mobic 15 mg Tablet] 15 mg PO DAILY 05/18/19 Methocarbamol [Robaxin 750 mg Tablet] 750 mg PO Q6HP PRN 05/18/19 Sertraline HCl 150 mg PO DAILY 05/18/19 Trazodone HCl 225 mg PO QHS 05/18/19 Albuterol Sulfate [Ventolin 0.083% Neb 2.5 mg/3 mL Ampul] 1 vial NEB RTQ4HP PRN 09/08/19 Aspirin [Ecotrin 81 mg EC Tablet] 81 mg PO DAILY 09/08/19 Celecoxib [Celebrex 200 mg Capsule] 200 mg PO DAILYP PRN 09/08/19 Hydrocodone/Acetaminophen [[place] 5-325 mg Tablet] 1 tab PO Q8HP PRN 09/08/19 Metformin HCl [Glucophage 500 mg Tablet] 500 mg PO QAM 09/08/19 Cefdinir 300 mg PO Q12 4 Days #8 capsule 09/11/19 Prednisone [Deltasone 20 mg Tablet] 40 mg PO DAILY 3 Days 09/11/19 History of Present Illiness History of Present Illness: According to admitting provider: DUARTE TAN is a 64 year old female with a past medical history of bipolar, oxygen dependent COPD, chronic bronchitis, sinusitis, depression, ongoing tobacco dependence. She presents with 3 days of productive cough of purulent sputum, rhinorrhea developing fever prompting evaluation emergency department. She is found to have fever, hypoxia, tachypnea, leukocytosis with lymphopenia and right-sided rhonchi. She started on empiric antibiotics for pneumonia and referred to the hospitalist for admission. She denies known infectious contact or contact of COVID. She denies recent antibiotic use. Hospital Course Hospital Course: Patient was admitted to the hospital with noted fever, shortness of breath and wheezing. She was thought to be in an acute COPD exacerbation started on treatment with bronchodilator inhalers later transitioned to nebulizers as well as steroids. Chest x-ray revealed some findings concerning for pneumonia. Patient was started on antibiotics with ceftriaxone and azithromycin for community-acquired pneumonia. She was also initially placed on the isolation while being ruled out for COVID-19 which will ended up being negative. Patient was later transitioned to nebulizer treatments. She also required BiPAP treatment initially during the course of her hospitalization. Patient has known history of chronic hypoxic respiratory failure on 2 to 3 L nasal cannula for her COPD. Patient is doing a lot better wheezing has improved though still present. Patient is being discharged with cefdinir to take for 4 more days as well as a few more days of prednisone. 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 Nolasco. I also advised patient to reduce or stop taking her Zanaflex as this is causing some episodes of bradycardia. Patient stable at the time of discharge and doing quite well. Physical Exam Vital Signs: Temp Pulse Resp BP Pulse Ox 98.0 F 49 L 20 140/63 H 95 09/11/19 08:14 09/11/19 08:14 09/11/19 08:14 09/11/19 08:14 09/11/19 08:14 Intake & Output 09/10/19 09/11/19 09/12/19 06:59 06:59 06:59 Intake Total 1340 1340 Balance 1340 1340 Weight 64.3 kg 60 kg General appearance: PRESENT: no acute distress, cooperative Respiratory exam: PRESENT: symmetrical, unlabored, wheezes. ABSENT: accessory muscle use, tachypnea Neurological exam: PRESENT: alert, awake, oriented to person, oriented to place, oriented to time Results Laboratory Results: WBC 8.2 10^3/uL (4.0-10.5) 09/09/19 06:37 RBC 4.66 10^6/uL (3.72-5.28) 09/09/19 06:37 Hgb 13.5 g/dL (12.0-15.5) 09/09/19 06:37 Hct 40.0 % (36.0-47.0) 09/09/19 06:37 MCV 86 fl (80-97) 09/09/19 06:37 MCH 29.1 pg (27.0-33.4) 09/09/19 06:37 MCHC 33.9 g/dL (32.0-36.0) 09/09/19 06:37 RDW 14.4 % (11.5-14.0) H 09/09/19 06:37 Plt Count 259 10^3/uL (150-450) 09/09/19 06:37 Lymph % (Auto) 17.7 % (13-45) 09/09/19 06:37 [place] % (Auto) 8.2 % (3-13) 09/09/19 06:37 Eos % (Auto) 0.0 % (0-6) 09/09/19 06:37 Baso % (Auto) 0.0 % (0-2) 09/09/19 06:37 Absolute Neuts (auto) 6.1 10^3/uL (1.7-8.2) 09/09/19 06:37 Absolute Lymphs (auto) 1.5 10^3/uL (0.5-4.7) 09/09/19 06:37 Absolute Monos (auto) 0.7 10^3/uL (0.1-1.4) 09/09/19 06:37 Absolute Eos (auto) 0.0 10^3/uL (0.0-0.6) 09/09/19 06:37 Absolute Basos (auto) 0.0 10^3/uL (0.0-0.2) 09/09/19 06:37 Seg Neutrophils % 74.1 % (42-78) 09/09/19 06:37 PT 13.9 SEC (11.4-15.4) 09/07/19 20:50 INR 1.07 09/07/19 20:50 D-Dimer 0.39 ug/mL (0.00-0.50) 09/07/19 20:50 Sodium 138.5 mmol/L (137-145) 09/09/19 06:37 Potassium 5.0 mmol/L (3.6-5.0) 09/09/19 06:37 Chloride 106 mmol/L (98-107) 09/09/19 06:37 Carbon Dioxide 25 mmol/L (22-30) 09/09/19 06:37 Anion Gap 8 (5-19) 09/09/19 06:37 BUN 21 mg/dL (7-20) H 09/09/19 06:37 Creatinine 0.78 mg/dL (0.52-1.25) 09/09/19 06:37 Est GFR ( Amer) > 60 (>60) 09/09/19 06:37 Est GFR (MDRD) Non-Af > 60 (>60) 09/09/19 06:37 Glucose 123 mg/dL (75-110) H 09/09/19 06:37 Lactic Acid 0.6 mmol/L (0.7-2.1) L 09/09/19 06:37 Calcium 9.4 mg/dL (8.4-10.2) 09/09/19 06:37 Ferritin 178.00 ng/mL (11.1-264.0) 09/07/19 20:50 Total Bilirubin 0.7 mg/dL (0.2-1.3) 09/07/19 20:50 Direct Bilirubin 0.0 mg/dL (0.0-0.4) 09/07/19 20:50 Neonat Total Bilirubin Not Reportable 09/07/19 20:50 Neonat Direct Bilirubin Not Reportable 09/07/19 20:50 Neonat Indirect Bili Not Reportable 09/07/19 20:50 AST 22 U/L (14-36) 09/07/19 20:50 ALT 15 U/L (<35) 09/07/19 20:50 Alkaline Phosphatase 77 U/L (38-126) 09/07/19 20:50 Creatine Kinase 239 U/L (30-135) H 09/07/19 20:50 Troponin I < 0.012 ng/mL 09/07/19 20:50 C-Reactive Protein 68.8 mg/L (<10.0) H 09/07/19 20:50 Total Protein 8.1 g/dL (6.3-8.2) 09/07/19 20:50 Albumin 4.4 g/dL (3.5-5.0) 09/07/19 20:50 COVID-19 Source Cancelled 09/07/19 20:50 COVID-19 Source NASOPHARYNGEAL 09/07/19 20:50 COVID-19 (AMBROSIO) Cancelled 09/07/19 20:50 COVID-19 (AMBROSIO) NOT DETECTED 09/07/19 20:50 09/07/19 20:50 Troponin I < 0.012 Impressions: Chest X-Ray 09/07/19 19:59 IMPRESSION: Hyperinflation. Mild chronic interstitial prominence. No obvious acute findings. Plan Time Spent: Less than 30 Minutes Stroke Is this a Stroke Patient?: No Acute Heart Failure - Is this a Heart Failure Patient?: No
[2019-09-11 12:54] VITALS: BP 140/71
== END 2019-09-11 13:53 | disposition home or self-care (01) | DRG 194 ==
LOC: ER 18:52 → EH 22:35 → 5 09-08 00:04 → 3W 09-09 23:38
PROVIDERS: ADMIT Internal Medicine; ATTEND Internal Medicine
DX: J18.9 Pneumonia, unspecified organism (principal); J44.0 Chronic obstructive pulmonary disease with (acute) lower respiratory infection; J96.11 Chronic respiratory failure with hypoxia; J44.1 Chronic obstructive pulmonary disease with (acute) exacerbation; F31.9 Bipolar disorder, unspecified; Z99.81 Dependence on supplemental oxygen; F17.200 Nicotine dependence, unspecified, uncomplicated; E78.5 Hyperlipidemia, unspecified; M19.90 Unspecified osteoarthritis, unspecified site; Z79.51 Long term (current) use of inhaled steroids; Z79.899 Other long term (current) drug therapy; Z88.5 Allergy status to narcotic agent; J32.0 Chronic maxillary sinusitis; K21.9 Gastro-esophageal reflux disease without esophagitis; Z20.828 Contact with and (suspected) exposure to other viral communicable diseases
CPT/HCPCS: 36415; 71045; 80048; 80053; 82550; 82728; 83605; 84484; 85025; 85027; 85379; 85610; 86140; 87040; 87070; 87077; 87205; 87635; 93005; 93010; 94640; 94660; 94667; 94668; 94799; 96374; 99285; C9803; J0456; J0696; J1644; J1956; J2405; J2920; J3490; J7060; J7512; J7620; J8540